=== PATIENT | male | born 1970 | race Caucasian/White ===

== ENCOUNTER 2016-11-30 19:49 | Inpatient (IN) | payer MEDICARE ==
[~2016-11-30] VITALS: Ht 171.4 cm; Wt 219.2 kg
--- NOTE | ~2016-11-30 | CN ---
PATIENT NAME:CELSA HARRIS MEDICAL RECORD: [id number] : 66 LOCATION:[id number] ADMIT DATE: 11/30/16 ACCOUNT: [id number] CONSULTING PHYSICIAN: JOLANTA MORALES MD REFERRING PHYSICIAN: SUBHASH SPARKS MD DATE OF CONSULTATION: 12/02/2016 CONSULT REQUESTING PHYSICIAN: Subhash Sparks MD REASON FOR CONSULTATION: Vent management, hypotension. HISTORY OF PRESENT ILLNESS: Mr. Harris is a 46-year-old gentleman, who has a history of end-stage renal disease. He is on hemodialysis. Yesterday after the hemodialysis, the patient had AV fistula rupture and the patient was transferred over here for further management. A rapid response was called in the evening and the patient was hypoxic, hypotensive. The patient was electively intubated and transferred to the ICU. Now, the history was taken mainly by reviewing the patient's note as well as talking to the nursing staff. PAST MEDICAL HISTORY: 1. End-stage renal disease, on hemodialysis. 2. History of CVA in 2011. 3. Obstructive sleep apnea. 4. Diabetes mellitus. 5. Hypertension. 6. Coronary artery disease. PAST SURGICAL HISTORY: 1. He had a cardiac catheterization multiple times. 2. He has AV fistula placement. ALLERGIES: HE IS ALLERGIC TO PENICILLIN, MORPHINE, CODEINE, ARAVA, AND LATEX. MEDICATIONS: On [employer] was reviewed. PERSONAL AND SOCIAL HISTORY: The patient is and lives with his . He is a nonsmoker, nondrinker. FAMILY HISTORY: Noncontributory. PHYSICAL EXAMINATION: GENERAL: Now, the patient is orally intubated and sedated. VITAL SIGNS: The blood pressure is 89/56, pulse is 116, respirations 20, temperature 100.6, SPO2 is 96%. The patient is on assist control mechanical ventilation. HEENT: Conjunctivae pink, sclerae nonicteric. NECK: Supple, no JVD. CHEST: There is no wheeze, no rales. HEART: Rhythm regular, normal sound, no murmur. ABDOMEN: Soft. Bowel sounds present. No hepatosplenomegaly. RECTAL: Deferred. EXTREMITIES: No cyanosis, no clubbing. There is 1+ pedal edema. SKIN: Warm, normal turgor. CENTRAL NERVOUS SYSTEM: The patient is orally intubated and sedated. There is no obvious cranial nerve abnormality. CONSULT REPORT [id number] CELSA HARRIS CHEST RADIOGRAPH: There is no infiltrate. The ET tube is a bit high. OTHER LABORATORY DATA: CBC: The WBC is 40,009, hemoglobin is 12, hematocrit 39.9 and the platelet count is 147. Chemistry: Sodium is 142, potassium 4.4, BUN is 54, creatinine of 11.1, glucose 103. The ABG post-intubation: The pH is 7.44, pCO2 is 37.5, the pO2 is 400. This was done on assist control 100% oxygen with a tidal volume of 600. IMPRESSION: 1. Acute hypoxic respiratory failure, hypotension, possible sepsis, possible hypovolemia secondary to blood loss. 2. Leukocytosis secondary to sepsis. 3. AV fistula rupture, status post bleeding. 4. History of obstructive sleep apnea. 5. History of coronary artery disease. 6. End-stage renal disease. 7. Diabetes mellitus type 2. 8. History of cerebrovascular accident. RECOMMENDATION: 1. I will discontinue prednisone, start him on stress dose of steroid. 2. Start him on vancomycin to cover for any MRSA in case of sepsis. 3. Check blood cultures. Check sputum culture. 4. Follow up labs and chest radiograph. 5. DVT and stress ulcer prevention. 6. The patient is going to the OR for the fistula repair and placement. Dr. Sparks, thank you for involving me in the care of Mr. Harris. TRANSINT:[id number] Voice Confirmation ID: [id number] DOCUMENT ID: [id number] JOLANTA MORALES MD CC: SUBHASH SPARKS MD [id number] DICTATION DATE: 12/02/16 1210 ASSOCIATE PROFESSOR OF LAW: 12/02/16 2017 ADM IN [facility] [address] [place] [address]
[~2016-11-30 19:49] MED LIST: BACTRIM DS TABL1 TAB PO; CETIRIZINE HCL5 MG PO; CIALIS10 MG PO; CLEOCIN HCL300 MG PO; COUMADIN2.5 MG PO; COUMADIN5 MG PO; FLORINEF 0.1 M0.1 MG PO; FLUTICASONE PRO16 GM NASAL; FOLIC ACID1 MG PO; GABAPENTIN100 MG PO; HYDROCODONE-APA1 TAB PO; IMODIUM2 MG PO; LEVAQUIN250 MG PO; LORCET; MIDODRINE HCL10 MG PO; MIDODRINE HCL5 MG PO; NASONEX NASAL S17 GM NS; NEPHRO-VITE RX1 TAB PO; NORCO 7.5/325 T1 TA1 PO; PATADAY2.5 ML EACH EYE; PAXIL20 MG PO; PHENERGAN25 M1 PO; PREDNISONE10 MG PO; PREDNISONE2.5 MG PO; PREDNISONE20 MG PO; PREDNISONE5 MG PO; PRILOSEC20 MG PO; RENVELA800 MG PO; REQUIP0.5 MG PO; RYTHMOL150 MG PO; SENSIPAR60 MG PO; SENSIPAR90 MG PO; SILVADENE20 GM TP; TUMS500 MG PO; TUSSIONEX PENN473 ML PO; ULTRACET; VENTOLIN HFA18 GM INH; XANAX0.25 MG PO; ZOCOR20 MG PO; ZOFRAN4 MG PO
[2016-11-30 20:49] LABS: BASOPHILS 0.3 % (0-2); EOSINOPHILS 1.2 % (0-7); HEMATOCRIT 44.9 % (42.0-54.0); HEMOGLOBIN 13.5 g/dL (13.5-17.5); IMMATURE GRANULOCYTES 0.4 % (0-5); LYMPHOCYTES 6.4 % (15-50); MCH 32.8 pg (26.0-34.0); MCHC 30.1 g/dL (31.0-37.0); MEAN PLATELET VOLUME 10.3 fL (7.4-10.4); MONOCYTES 7.1 % (2-11); NEUTROPHILS 84.6 % (40-80); PLATELET COUNT 114 10x3/uL (130-400); RBC 4.12 10x6/uL (4.20-6.10); RDW 14.9 % (11.5-14.5); WBC 11.3 10x3/uL (4.8-10.8)
[2016-11-30 21:05] LABS: INR 2.05 (0.85-1.17); PROTIME 23.2 SECONDS (11.6-15.0)
[2016-11-30 21:12] LABS: ALBUMIN 3.4 g/dL (3.4-5.0); ANION GAP 16.9 mmol/L (8-16); BILIRUBIN - TOTAL 0.39 mg/dL (0.2-1.3); CALCIUM 8.4 mg/dL (8.5-10.1); CARBON DIOXIDE 30.1 mmol/L (21.0-32.0); CREATININE - SERUM 7.8 mg/dL (0.6-1.3); PROTEIN - SERUM 6.8 g/dL (6.4-8.2)
[2016-12-01] VITALS (7 sets, daily range): BP systolic 79–104; BP diastolic 36–55; Ht 171.4 cm; Wt 219.2 kg
--- NOTE | 2016-12-01 00:10 | NUR ---
PT ARRIVED AT 2322 HRS VIA STRETCHER FORM ER WITH DX OF BLEEDING FISTULA. NO BLEEDING NOTED AT THIS TIME. RFA WRAPED WITH JORDANA BANDAGE. PALPABLE R RADIAL OPULSE. PT DENIES ANY DISCOMFORT. O2 2LNC. WILL CONTINUE TO MONITOR. SRUP X2, CALL LIGHT WITHIN REAQCH.
--- NOTE | 2016-12-01 00:27 | NUR ---
ADMISSIONA SASSESSMENT AND HISTORY COMPLETED. PT REFUSES SCD'S AT THIS TIME. WILL CONTINUE TO MONITOR.
[2016-12-01] MEDS ORDERED: BUPRENORPHIN-N1 EACH SL (01:30)
--- NOTE | 2016-12-01 01:32 | NUR ---
PT RESTING WITH EYES CLOSED. RESP EVENA ND REGULAR. NO BLEDING NOTED TO R AVF. WILL CONTIUE TO MONITOR. SR UP X2,CALL LIGHT WITHIN REACH.
--- NOTE | 2016-12-01 01:39 | NUR ---
PT HAS C/O THROBBING R ARM PAIN. RENAL SERVICES PAGED.
--- NOTE | 2016-12-01 02:14 | NUR ---
Alejo STALEY APN RETURNED PAGE. INFORMED OF PT'S C/O SEVERE R ARM PAIN. ALLERGIES REVIEWED. NEW ORDERS RECEIVED AND NOTED. BUPRENEX 0.2 MG SIVP GIVNE AT 0151 HRS. STAYED WITH PT UNTILL 0215. NO C/O SOB, TROUBLE BREATHNG, THROAT SWELLING, RASH OR ITCHING NOTED. PT THEN STATED PAIN DOWN TO 2/10. WILL CONTINUE TO MONITOR.
--- NOTE | 2016-12-01 03:29 | NUR ---
PT RESTING WITH EYES CLOSED. RESP EVEN AND REGULAR. SR UP X2, CALL LIGHT WITHIN REACH.
--- NOTE | 2016-12-01 06:08 | NUR ---
VSS. PT CURRENTLY RESTING WITH EYES WITH CLOSED. RESP EVEN AND REGULAR. SR UP X2, CALL LIGHT WITHIN REACH.
[2016-12-01 07:23] LABS: BASOPHILS 0.3 % (0-2); EOSINOPHILS 1.1 % (0-7); HEMATOCRIT 45.6 % (42.0-54.0); HEMOGLOBIN 13.5 g/dL (13.5-17.5); IMMATURE GRANULOCYTES 0.5 % (0-5); LYMPHOCYTES 11.4 % (15-50); MCH 32.8 pg (26.0-34.0); MCHC 29.6 g/dL (31.0-37.0); MCV 110.7 fL (80.0-100.0); MEAN PLATELET VOLUME 10.2 fL (7.4-10.4); MONOCYTES 11.4 % (2-11); NEUTROPHILS 75.3 % (40-80); PLATELET COUNT 117 10x3/uL (130-400); RBC 4.12 10x6/uL (4.20-6.10); WBC 13.3 10x3/uL (4.8-10.8)
--- NOTE | 2016-12-01 07:24 | NUR ---
0710-AM ROUNDING DONE WITH PATIENT APPEARING TO BE ALSEEP. RESP ARE EVEN AND NON LABORED. ON 2L PER NC. JORDANA WRAP SEEN TO RIGHT UPPER ARM. LEFT HAND SEEN WITH SALINE LOCK. RESERVE RIGHT ARM. WILL CPOC.
[2016-12-01 07:35] LABS: CALCIUM 8.5 mg/dL (8.5-10.1); CARBON DIOXIDE 31.9 mmol/L (21.0-32.0); CREATININE - SERUM 8.8 mg/dL (0.6-1.3); POTASSIUM - SERUM 4.9 mmol/L (3.5-5.1)
[2016-12-01 09:15] LABS: INR 1.73 (0.85-1.17); PROTIME 20.2 SECONDS (11.6-15.0)
--- NOTE | 2016-12-01 09:27 | NUR ---
PATIENT MADE NPO PER ORDERS.
--- NOTE | 2016-12-01 09:45 | NUR ---
EKG DONE ORDERED.
--- NOTE | 2016-12-01 12:36 | NUR ---
ZOFRAN GIVEN SLOW IVP FOR PATIENT'S COMPLAINT OF NAUSEA.
--- NOTE | 2016-12-01 14:09 | NUR ---
PATIENT IS STILL NPO, AWAITING DR BOX TO SEE HIM (HE IS STILL IN SURGERY). RESTING WITH EYES CLOSED, RESP ARE EVEN AND NON LABORED.
--- NOTE | 2016-12-01 16:34 | NUR ---
DR CRAWLEY BEEPED TO NOTIFY HIM OF PATIENT GOING TO OR TOMORROW PER DR BOX'S ORDERS. AWAITING CALL BACK. 1634-DR CRAWLEY TO CALL BACK
--- NOTE | 2016-12-01 17:10 | NUR ---
OP PERMITS ARE SIGNED FOR TOMORROW, PATIENT IS MADE AWARE OF NPO PAST MIDNIGHT.
--- NOTE | 2016-12-01 23:12 | NUR ---
INITIAL ROUNDS COMPETED AT 1920 HRS. FAMILY AT BEDSIDE. PT DOZING QUIETLY. RESP EVEN AND REGULAR. ASSESSMETN COMPLETED AT 2015 HRS. VSS. O2 2LNC. LUNGS DIMINISHED IN BASES BILAT. VELASCO. IMPAIRED ROM DUE TO ARTHRITIS. IV TO LFA SL. RAVF WRAPPED. NO BLEEDING NOTED. PALPABLE R RADIAL PULSE. PM MEDS GIVEN INCLUDING BUPRENEX 0.2MG SIVP FOR C/O R ARM PAIN 12/13 AT 2127 HRS. PT CURRENTLY RESTING WITH EYES CLOSED. RESP EVEN AND REGULAR. SR UP X2, CALL LIGHT WITHIN REACH. NO BLEEDING TO FISTULA SITE NOTED. BP CUFF AT BEDSIDE.
[2016-12-02] VITALS (77 sets, daily range): BP systolic 61–132; BP diastolic 33–543
[2016-12-02 00:54] LABS: HEMATOCRIT 44.3 % (42.0-54.0); HEMOGLOBIN 12.7 g/dL (13.5-17.5); MCH 32.5 pg (26.0-34.0); MCHC 28.7 g/dL (31.0-37.0); MCV 113.3 fL (80.0-100.0); MEAN PLATELET VOLUME 10.5 fL (7.4-10.4); PLATELET COUNT 160 10x3/uL (130-400); RBC 3.91 10x6/uL (4.20-6.10); RDW 15.2 % (11.5-14.5); WBC 20.4 10x3/uL (4.8-10.8)
--- NOTE | 2016-12-02 01:04 | NUR ---
PT FOUND AT 0003 HRS DURING 2400 ROUNDS PURPLE, APNEIC BREATHING, CHIN ON CHEST AND WHITE, FROTHY SPUTUM CASCADING DOWN CHEST. AIRWAY OPENED AND AIRWAY CLAERED WITH TOWEL. RAPID RESPONSE CALLED AND PT THEN SUCTIONED WITH YANKUERS WITH A LARGE AMOUNT OF WHITE, FROTHY SPUTUM NOTED. PT UNRESPONSIVE WITH STERNAL CHEST RUB. RESP LABORED. Elmira FATIMA RN HERE FOR RAPID RESPONSE. NARCAN 0.4MG SIVP GIVEN TO LFA IV AT 0011 HRS. PT CONTINUES TO BE UNRESPONSIVE. O2 SAT 82%. ATTEMPTED X2 FOR ABG'S WITHOUT SUCCESS. NASAL TRUMPET PLACED TO R NARES AT 0022 HRS ANAD PT THEN DEEP SUCTIONED WITH MORE WHITE, FROTHY SPUTUM NOTED. ST PER MONITOR HR 101. BP AT 0030 71/34. SECOND DOSE OF NARCAN 0.4MG SIVP GIVNE AT 0033 HRS. PT BECOMING MORE AND MORE APNEIC. DR SUREKHA JOHNSON MD HERE AT THAT TIME. O2 SAT 82% BP 84/41 AT 0036 HRS. PT INTUBATED AT 0037 HRS WITH 7.5 ET TUBE AT 23 CM. ET TUBE CHECKED FOR PLACEMENT WITH BERATH SOUNDS HEARD BILAT. O2 SAT TO 98% VS/P INTUBATION . ST PER CM HR 112. KALEB HARRIS CALLED AT 0045 HRS AND INFORMED OF PT'S CONDITION. STATED SHE WAS ON HER WAY. RENAL SERVICES POAGED AT 0045 HRS. Alejo STALEY RETURNS CALL AT 0052 HRS AND UPDATE GIVEN BY Nu BROWN RN. BP 52/30 AND 1 LITER FLUID UP PER Elmira BROWN RN. DR. CRAWLEY CALLED AT 0055 HRS AND SPOKE WITH Elmira BROWN RN. PT PLACED ON VENT AT 0050 HRS. CARE TURNED OVER TO Elmira BROWN RN.
[2016-12-02 01:14] LABS: EOSINOPHILS 1 % (0-7); LYMPHOCYTES 18 % (15-50); MONOCYTES 5 % (2-11); NEUTROPHILS 76 % (40-80)
[2016-12-02 01:15] LABS: PLATELET ESTIMATE NORMAL
[2016-12-02 01:30] LABS: ALBUMIN 3.2 g/dL (3.4-5.0); ALKALINE PHOSPHATASE 141 U/L (46-116); ALT (SGPT) 28 U/L (10-68); BILIRUBIN - TOTAL 0.42 mg/dL (0.2-1.3); CALC OSMOLALITY 300 mosm/kg (275-300); CALCIUM 8.7 mg/dL (8.5-10.1); CARBON DIOXIDE 25.6 mmol/L (21.0-32.0); CHLORIDE - SERUM 101 mmol/L (98-107); CREATININE - SERUM 11.2 mg/dL (0.6-1.3); GLUCOSE 163 mg/dL (74-106); POTASSIUM - SERUM 4.9 mmol/L (3.5-5.1); PROTEIN - SERUM 6.7 g/dL (6.4-8.2); SODIUM 142 mmol/L (136-145); UREA NITROGEN 51 mg/dL (7-18); eGFR NON AFRICAN AMERICAN 5 mL/min (90-120)
[2016-12-02 01:41] LABS: CKMB 0.7 U/L (0.0-3.6); CREATINE KINASE 53 UL (21-232); MAGNESIUM - SERUM 2.6 mg/dL (1.8-2.4)
[2016-12-02 01:42] LABS: TROPONIN-I < 0.017 ng/mL (0.000-0.060)
--- NOTE | 2016-12-02 02:15 | NUR ---
0215: Pt transferred to ICU via STR and placed in room 2303 with HOB 30 degrees. Pt opens eyes to verbal and follows commands at this time. Pupils 2mm sluggish bilaterally. Pt moves x4 extrem vs gravity. Pt breathing via 7.5fr ETT at 23cm lip line with Vent as AC 600/20/100/5 with pt RR20x with SPO2 97%. Lungs with crackles heard throughout with auscultation. Pt has motteled extrem that are "blue" in color. S1S2 ST 100's on CM with SBP 60's. Left Arm PIV leaking but not infiltrated. Unable to obtain any other access with multiple attempts. ABD soft tender. ESRD noted. Right arm dressing intact with no bleeding seen at this time.
--- NOTE | 2016-12-02 03:00 | NUR ---
0300: Dr. Payan at bedside inserting CVL. here and updated about pt condition and procedure. Pt remains ST with SBP 60-70 (MAP 55-60) Levophed gtt infusing with NS to Left arm PIV.
--- NOTE | 2016-12-02 03:05 | NUR ---
0305: Successful placement of CVL to right groin. All gtts changed to CVL with new lines, swab caps, and sterile dressing to site.
--- NOTE | 2016-12-02 03:15 | NUR ---
0315: Pt vomitting approx 900cc of light green liquid vomit. Immediate oral suction.
--- NOTE | 2016-12-02 04:30 | NUR ---
0430: OGT placed by Christopher Pandey RN and position confirmed with 30cc air bolus and auscultation. OGT placed to LIWS. Small amount thick green/brown return.
[2016-12-02 04:33] LABS: BASOPHILS 0.3 % (0-2); EOSINOPHILS 0.8 % (0-7); HEMATOCRIT 40.4 % (42.0-54.0); IMMATURE GRANULOCYTES 1.1 % (0-5); LYMPHOCYTES 9.4 % (15-50); MCH 32.9 pg (26.0-34.0); MCHC 29.7 g/dL (31.0-37.0); MEAN PLATELET VOLUME 10.4 fL (7.4-10.4); MONOCYTES 9.2 % (2-11); NEUTROPHILS 79.2 % (40-80); PLATELET COUNT 151 10x3/uL (130-400); RBC 3.65 10x6/uL (4.20-6.10)
[2016-12-02 04:36] LABS: MCV 110.7 fL (80.0-100.0)
[2016-12-02 04:39] LABS: INR 1.51 (0.85-1.17); PROTIME 18.1 SECONDS (11.6-15.0)
[2016-12-02 06:17] LABS: BASOPHILS 0.3 % (0-2); EOSINOPHILS 0.9 % (0-7); HEMATOCRIT 39.9 % (42.0-54.0); IMMATURE GRANULOCYTES 1.1 % (0-5); LYMPHOCYTES 12.2 % (15-50); MCH 32.6 pg (26.0-34.0); MCHC 30.1 g/dL (31.0-37.0); MEAN PLATELET VOLUME 9.8 fL (7.4-10.4); NEUTROPHILS 78.5 % (40-80); PLATELET COUNT 147 10x3/uL (130-400); RBC 3.68 10x6/uL (4.20-6.10); RDW 15.1 % (11.5-14.5); WBC 14.9 10x3/uL (4.8-10.8)
[2016-12-02 06:28] LABS: MCV 108.4 fL (80.0-100.0)
--- NOTE | 2016-12-02 06:55 | NUR ---
0655: Pt complete linen change done at this time x3 RNs. Pt repositioned for comfort at this time with HOB 30 degrees.
[2016-12-02 07:09] LABS: ALBUMIN 2.8 g/dL (3.4-5.0); ANION GAP 20.3 mmol/L (8-16); BILIRUBIN - TOTAL 0.67 mg/dL (0.2-1.3); CALCIUM 8.8 mg/dL (8.5-10.1); CARBON DIOXIDE 26.1 mmol/L (21.0-32.0); CREATININE - SERUM 11.1 mg/dL (0.6-1.3); POTASSIUM - SERUM 4.4 mmol/L (3.5-5.1); PROTEIN - SERUM 6.3 g/dL (6.4-8.2)
[2016-12-02 07:10] LABS: MAGNESIUM - SERUM 1.9 mg/dL (1.8-2.4)
--- NOTE | 2016-12-02 07:41 | NUR ---
PATIENT AWAKES EASILY AND OBEY COMMANDS. NODES HEAD TO YES AND NO QUESTIONS AND MOVES EXTREMITIES ON REQUEST. FEET AND HANDS ARE BLUE WITH MUSCLE ATROPY IN THE FEET. HANDS SLIGHTLY SWOLLEN. FISTULA RIGHT UPPER ARM NO BRUIT OR THRILL NOTED. LEFT FEMEROL TRIPLE LUMEN CENTRAL LINE IN PLACE INFUSING WITH LEVOPHED AT 30 MCG/MIN. DIPRIVAN 20MCG/KG/MIN. AND NS AT 100ML HOUR. BILATERAL LUNG SOUNDS ARE EQUAL AND CONGESTED. SUCTION YELLOW OUT OF ETT, AND CLEAR FROM MOUTH. HANDS AND FEET ARE COLD TO TOUCH BODY IS WARM. MONITOR ST WITH FREQ PVC. VOMITTED CLEAR MUCOUSY FLUID. OG TO LOW INTERMITTEN SUCTION. ETT SECURE TO VENT. SIDE RAILS ELEVATED X 3.
--- NOTE | 2016-12-02 09:23 | NUR ---
STILL VOMITTING SMALL AMOUNTS. NG CHECKED FOR PLACEMENT AIR BOLUS AUDIBLE IN ABD. THICK YELLOW DRAINAGE FROM NG TUBE. PO MEDS HELD AT THIS TIME. REPOSITIONED ON RIGHT SIDE. LEVOPHED AT 30 MCG/MIN. NS AT 100 ML HOUR. DIPRIVAN AT 20 MCG/KG/MIN.
--- NOTE | 2016-12-02 10:09 | NUR ---
EDG COMPLETED PATIENT AWAKES EASILY TOLERATED WELL. AT BEDSIDE
--- NOTE | 2016-12-02 11:17 | NUR ---
TO OR PER BED. NOTIFIED PER PHONE . DR. MORALES HERE EXAM DONE.
--- NOTE | 2016-12-02 13:36 | NUR ---
RETURNED FROM OR, INTUBATED BILATERAL LUNGS EQUAL AND VERY CONGESTED. MONITOR ST. A LINE LEFT AXILLA WITH GOOD WAVE FORM, FLUSHED AND ZEROED. LEFT IJ TRIPLE LUMEN INFUSING WITH NS AT 100 ML HOUR. LEVOPHED AT 29 MCG/MIN. DIPRIVAN AT 20 MCG/KG/MIN. ETT SECURE AT 21 AT THE LIP. OG TO SUCTION WITH THICK BROWN FOOD LIKE MATERIAL. FISTULA RIGHT UPPER ARM DRESSING DRY AND INTACT. LEFT FEMEROL HEMISPLIT CATHETER DRESSING DRY AND INTACT NO SWELLING. SCD TO LOWER LEGS NO THRILL OR BRUIT IN LEFT UPPER ARM. HEAD OF BED ELEVATED 30 DEGREE.
--- NOTE | 2016-12-02 15:07 | NUR ---
TALKED WITH PATIENT ABOUT PENCILLIN REACTION SHE SAYS IT HAS BEEN YEARS AGO AND ALL HER HURTADO TOLD HER WAS HE HAD A REACTION TO IT. CALLED PHARMACY AND TALKED WITH Donnie THAT DR. CRAWLEY STATES TO GO HEAD AND GIVE MANUELN
--- NOTE | 2016-12-02 17:59 | NUR ---
VASOPRESSIN OFF, WEANING LEVOPHED AT 28 MCG/MIN. REPOSITIONED. OPENS EYES BUT CLOSES THEM QUICKLY. LUNGS SOUNDS CLEARER BUT STILL SOME CONGESTION. DIPRIVAN AT 20 MCG/KG/MIN. NS AT [address] WITH PVC'S. TRAE WITH GOOD WAVE FORM
--- NOTE | 2016-12-02 18:32 | NUR ---
VASOPRESIN TURNED ON AT 0.04 UNITS/MIN. WEANING LEVOPHED AT 25 MCG MIN
--- NOTE | 2016-12-02 19:00 | NUR ---
REPORT RECEIVED. ASSESSMENT COMPLETE PER FLOW SHEET. SEDATED ON VENT, OPENS EYES TO SPEECH AND IS ABLE TO FOLLOW COMMANDS WHEN ASKED TO SQUEEZE MY HAND AND MOVE HIS FEET. PUPILS ARE 2 CM, SLUGGISH REACTION. REDNESS NOTED IN R&L EYE. MUCOUS MEMBRANES MOIST. ORAL MUCOSA SUCTIONED, YELLOW SPUTUM NOTED. OGT TO LIS, PLACEMENT VERIFIED VIA AUSCULTATION. S1S2 PRESENT. TELEMETRY MONITORING RATE OF 95.RR 20.TEMP 99.8, TYMPANIC. O2 SATURATION 97%. RADIAL PULSES AUDIBLE WITH DOPPLER. POPLITEAL PULSES AUDIBLE WITH DOPPLER. BS PRESENT X4. ABDOMEN LARGE AND TIGHT. ANURIC VOIDING PATTERN. FISTULA ON R UPPER ARM, BANDAGE WRAPPED, CLEAN AND INTACT, UNABLE TO HEAR A BRUIT OR FEEL FOR A THRILL. STIFFNESS NOTED TO RUBIN. CYANOSIS NOTED ON BOTH HANDS AND FEET AND ARE COLD TO THE TOUCH, REST OF BODY IS WARM AND DRY. BRUISES NOTED ON L ARM. SCRAPES ON BOTH LEGS NOTED. LT JUGULAR CVL, PATENT, DRESSING CLEAN AND INTACT, INFUSING VASOPRESSIN AT 0.04 UNITS/MIN, NOREPINEPHRINE AT 15 MCG/MIN, NS AT 50 MLS/HR, AND DIPRIVAN AT 20 MCG/KG/MIN. LT GROIN HEMOSPLIT, DRESSING CLEAN AND INTACT. L&R SOFT WRIST RESTRAINTS. ARTERIAL LINE TO LEFT AXILLA, DRESSING CLEAN AND INTAC, ZEROED, GOOD WAVEFORM, BP 118/71. CAPILLARY REFILL <3 SECS UPPER AND LOWER EXTREMITIES. BED IN LOWEST POSITION. SEE FLOW SHEET FOR COMPLETE ASSESSMENT. WILL CONTINUE TO MONITOR. BED IN LOWEST POSITION.
--- NOTE | 2016-12-02 20:33 | NUR ---
MEDS ADMINISTERED PER EMAR. VSS. WILL CONTINUE TO MONITOR.
--- NOTE | 2016-12-02 21:15 | NUR ---
VSS. TITRATING LEVOPHED TO 14 MCG/KG/MIN. WILL CONTINUE TO MONITOR. BED IN LOWEST POSITION.
--- NOTE | 2016-12-02 22:47 | NUR ---
VSS. TITRATING LEVOPHED TO 13 MCG/KG/MIN. BED IN LOWEST POSITION. WILL CONTINUE TO MONITOR.
--- NOTE | 2016-12-02 23:00 | NUR ---
REASSESSMENT COMPLETE PER FLOW SHEET, SEE FOR DETAILS. VSS. WILL CONTINUE TO MONITOR.
--- NOTE | 2016-12-02 23:46 | NUR ---
VSS. TITRATING LEVOPHED TO 12 MCG/KG/MIN. WILL CONTINUE TO MONITOR.
[2016-12-03] VITALS (95 sets, daily range): BP systolic 78–159; BP diastolic 49–100
--- NOTE | 2016-12-03 00:48 | NUR ---
VSS. TITRATING LEVOPHED TO 11 MCG/KG/MIN. WILL CONTINUE TO MONITOR.
--- NOTE | 2016-12-03 01:42 | NUR ---
VSS. TITRATING LEVOPHED TO 10 MCG/KG/MIN. WILL CONTINUE TO MONITOR.
--- NOTE | 2016-12-03 02:00 | NUR ---
SEDATED ON VENT, OPENS EYES TO SPEECH. VSS. WILL CONTINUE TO MONITOR.
--- NOTE | 2016-12-03 03:00 | NUR ---
REASSESSMENT COMPLETE PER FLOW SHEET, SEE FOR DETAILS. VSS. WILL CONTINUE TO MONITOR.
[2016-12-03 04:44] LABS: BASOPHILS 0.1 % (0-2); EOSINOPHILS 0 % (0-7); HEMATOCRIT 34.1 % (42.0-54.0); HEMOGLOBIN 10.7 g/dL (13.5-17.5); IMMATURE GRANULOCYTES 0.6 % (0-5); LYMPHOCYTES 2.1 % (15-50); MCH 32.8 pg (26.0-34.0); MCHC 31.4 g/dL (31.0-37.0); MEAN PLATELET VOLUME 10.4 fL (7.4-10.4); MONOCYTES 2.8 % (2-11); NEUTROPHILS 94.4 % (40-80); RBC 3.26 10x6/uL (4.20-6.10); RDW 14.7 % (11.5-14.5); WBC 14.1 10x3/uL (4.8-10.8)
[2016-12-03 04:45] LABS: MCV 104.6 fL (80.0-100.0); PLATELET COUNT 101 10x3/uL (130-400)
--- NOTE | 2016-12-03 05:00 | NUR ---
TOTAL BED BATH GIVEN AND COMPLETE BED LINENS CHANGED. VSS. ORAL AND INLINE SUCTIONED, CLEAR WHITE THICK SECRETIONS. WILL CONTINUE TO MONITOR.
[2016-12-03 05:03] LABS: ANION GAP 22.4 mmol/L (8-16); CALCIUM 9.6 mg/dL (8.5-10.1); CARBON DIOXIDE 23.1 mmol/L (21.0-32.0); CREATININE - SERUM 12.5 mg/dL (0.6-1.3); POTASSIUM - SERUM 5.5 mmol/L (3.5-5.1)
--- NOTE | 2016-12-03 06:00 | NUR ---
LAYING IN BED, VSS. NO VISITORS AT THIS TIME. WILL CONTINUE TO MONITOR.
--- NOTE | 2016-12-03 07:00 | NUR ---
PT AROUSES TO VOICE AND FOLLOWS COMMANDS. APPEARS TO BE AT ADEQUATE LEVEL OF SEDATION. NORMAL SINUS ON MONITOR. O2 SAT STABLE ON VENT, ORAL CARE PERFORMED. TITRATING VASOPRESSORS TOLERATED. ART LINE FLUSHED AND ZEROED, BP STABLE AND WILL CONTINUE TO MONITOR. ORDERS FOR DIALYSIS TODAY. SHIFT ASSESSMENT DOCUMENTED PER FLOWSHEET. WILL CONTINUE TO MONITOR CLOSELY. VITAL SIGNS STABLE
--- NOTE | 2016-12-03 09:00 | NUR ---
FAMILY AT BEDSIDE AND UPDATE GIVEN. PT ATTEMPTING TO COMMUNICATE WITH USING HAND GESTURES. APPEARS TO BE MORE AGITATED WITH INCREASING BP. INCREASED SEDATION NEEDED. ORAL CARE AND SUCTION PERFORMED. ATTEMPTING TO CALM PT. WILL CONTINUE TO MONITOR CLOSELY
--- NOTE | 2016-12-03 09:59 | NUR ---
Nutrition follow-up: Pt is now intubated, sedated with OGT to LIWS Labs reviewed NPO at this time Wt: 256# Will need nutrition support started within 24-48 hours if pt remains intubated. Recommend starting Nepro @ 25 ml with gradual increase to goal rate of 50 ml/hr. RDN following.
--- NOTE | 2016-12-03 10:30 | NUR ---
INITIATING DIALYSIS PER ORDERS WITH [facility] AT BEDSIDE. WILL MONITOR FOR CHANGES IN STATUS DURING THERAPY. VITAL SIGNS STABLE AT THIS TIME
--- NOTE | 2016-12-03 11:15 | NUR ---
PT NOW ON TEMPORARY ISOLATION FOR HEMOLYTIC STAPH. WILL FOLLOW CONTACT PRECAUTIONS WHEN CARING FOR PT. BP SLIGHTLY DROPPING WITH DIALYSIS. TITRATING VASOPRESSORS NEEDED
--- NOTE | 2016-12-03 13:00 | NUR ---
NO ACUTE CHANGES IN PT STATUS AT THIS TIME. TOLERATING DIALYSIS AT THIS TIME. WILL CONTINUE TO MONITOR FOR ANY CHANGE IN STATUS. VITAL SIGNS STABLE
--- NOTE | 2016-12-03 14:18 | NUR ---
Attempted to assess dc plans/needs. Patient sedated, on vent - No family present.
--- NOTE | 2016-12-03 14:30 | NUR ---
NEPRO INITIATED AT 20ML/HR PER ORDER TO OGT. HOB 30 DEGREES. PT REPOSTITIONED IN BED AND TURNED FOR COMFORT. NO FURTHER CHANGES AT THIS TIME.
--- NOTE | 2016-12-03 16:30 | NUR ---
NO ACUTE CHANGES IN PT STATUS AT THIS TIME. VITAL SIGNS STABLE. TITRATING VASOPRESSORS TOLERATED. WILL CONTINUE TO MONITOR
--- NOTE | 2016-12-03 17:10 | NUR ---
CALLED AND PROVIDED SECURITY PASSCODE. UPDATE GIVEN ON CURRENT STATUS. STATES SHE WILL BE HERE AT NEXT VISITATION. NO FURTHER CHANGES IN PT STATUS. REPOSITIONED FOR COMFORT AND ORAL CARE PERFORMED. WILL CONTINUE TO MONITOR
--- NOTE | 2016-12-03 19:00 | NUR ---
REPORT RECEIVED. ASSESSMENT COMPLETE PER FLOW SHEET. SEDATED ON VENT WITH DIPRIVAN AT 30 MCG/KG/MIN. FOLLOWS COMMAND WHEN ASKED TO SQUEEZE MY HAND AND MOVE HIS FEET AND OPENS EYES TO SPEECH. ORALLY INTUBATED WITH 7.5 CM ETT AT 22 CM MID LIP LINE. REDNESS NOTED IN R&L EYE. OGT PLACEMENT VERIFIED VIA AUSCULATATION, 70 MLS OF WATERY GREEN LIQUID OBTAINED, WILL CONTINUE WITH NEPRO TUBE FEEDINGS AT 20 MLS/HR. S1S2 PRESENT. RADIAL PULSES PALP. POPLITEAL PULSES PALP. TELEMETRY MONITORING RATE OF 64. ORAL MUCOUS MEMBRANES MOIST, SUCTIONED RALPH/WHITE SPUTUM. BS HYPOACTIVE X4. ABDOMEN TIGHT. OLD FISTULA RT UPPER ARM, DRESSING INTACT, NO DRAINAGE NOTED. SKIN WARM AND DRY, CYANOSIS NOTED TO BOTH FEET. BRUISES NOTED ON LT ARM. SCRAPES BILAT LEG. SCDs ON. LT JUGULAR CVL, PATENT, DRESSING INTACT. LT GROIN HEMOSPLIT, DRESSING CDI. CONTACT ISOLATION. L&R SOFT WRIST RESTRAINTS. LT AXILLA ARTERIAL LINE MONITORING BP 101/63. SEE FLOW SHEET FOR COMPLETE ASSESSMENT. BED IN LOWEST POSITION. WILL CONTINUE TO MONITOR.
--- NOTE | 2016-12-03 20:10 | NUR ---
SEDATED ON VENT. VSS. WILL CONTINUE TO MONITOR.
--- NOTE | 2016-12-03 21:19 | NUR ---
MEDS ADMINISTERED PER EMAR. VSS. WILL CONTINUE TO MONITOR. BED IN LOWEST POSITION.
--- NOTE | 2016-12-03 23:00 | NUR ---
REASSESSMENT COMPLETE PER FLOW SHEET, SEE FOR DETAILS. VSS. WILL CONTINUE TO MONITOR.
--- NOTE | 2016-12-03 23:40 | NUR ---
AGITATED, UNABLE TO STAY CALM, CONSISTANTLY COUGHING, ORAL AND INLINE SUCTIONED. DIPRIVAN INCREASED.
[2016-12-04] VITALS (63 sets, daily range): BP systolic 79–142; BP diastolic 44–82
--- NOTE | 2016-12-04 | NUR ---
RESIDUAL OF 315 MLS OF GREEN, RALPH, WHITE, STOMACH CONTENT OBTAINED. TUBE FEEDINGS PUT ON HOLD PER DOCTOR'S ORDERS. VSS. WILL CONTINUE TO MONITOR.
--- NOTE | 2016-12-04 03:00 | NUR ---
REASSESSMENT COMPLETE PER FLOW SHEET, SEE FOR DETAILS. VSS. WILL CONTINUE TO MONITOR.
[2016-12-04 03:57] LABS: BASOPHILS 0 % (0-2); EOSINOPHILS 0.1 % (0-7); HEMATOCRIT 28.3 % (42.0-54.0); HEMOGLOBIN 8.9 g/dL (13.5-17.5); IMMATURE GRANULOCYTES 0.5 % (0-5); MCH 32.8 pg (26.0-34.0); MCHC 31.4 g/dL (31.0-37.0); MCV 104.4 fL (80.0-100.0); MEAN PLATELET VOLUME 10.4 fL (7.4-10.4); MONOCYTES 6.6 % (2-11); NEUTROPHILS 90.8 % (40-80); PLATELET COUNT 84 10x3/uL (130-400); RBC 2.71 10x6/uL (4.20-6.10); RDW 14.7 % (11.5-14.5)
[2016-12-04 03:59] LABS: WBC 10.4 10x3/uL (4.8-10.8)
[2016-12-04 04:17] LABS: ANION GAP 19.4 mmol/L (8-16); CALCIUM 9.8 mg/dL (8.5-10.1); CARBON DIOXIDE 25.4 mmol/L (21.0-32.0); CREATININE - SERUM 9.5 mg/dL (0.6-1.3); MAGNESIUM - SERUM 2.3 mg/dL (1.8-2.4); PHOSPHOROUS 8.7 mg/dL (2.5-4.9); POTASSIUM - SERUM 4.8 mmol/L (3.5-5.1); VANCOMYCIN - RANDOM 31.4 ug/mL (10.0-20.0)
--- NOTE | 2016-12-04 05:00 | NUR ---
SEDATED ON VENT. VSS. WILL CONTINUE TO MONITOR. BED IN LOWEST POSITION.
--- NOTE | 2016-12-04 06:00 | NUR ---
NO VISITORS AT THIS TIME. VSS. WILL CONTINUE TO MONITOR.
--- NOTE | 2016-12-04 07:00 | NUR ---
REPORT RECIEVED FROM OFF GOING NURSE. PT LYING IN BED. DIPROVAN AT 30MCG/KG/MIN AND VASSOPRESIN AT 0.04 UNITS/MIN RUNNING TO LEFT JUGULAR CENTRAL LINE. OTHER LINES S/L AND KVO. TELEMETRY SHOWING 60TO 70BPM SINUS RYTHEM. PRESSURE DRESSING TO RIGHT ARM C/D/I. HEMOSPLIT TO L GROIN C/D/I. A LINE TO LEFT AXIALLARY HAS GOOD WAVE FORM AT 98/63. FAMILY NOT AT BED SIDE. COPIOUS AMOUNT OF CLEAR THICK SPEUTUM FROM PT'S MOUTH. SUCTIONED ORALY AND ET TUBE. PT DROWESY FROM SEDATION, HOWEVER ABLE TO SHAKE HEAD UP YES AND NO AND FOLLOW SIMPLE COMMANDS. OG TUBE HAD 100ML OF GREEN RESIDUAL NOTED. SEE FLOW SHEET FOR THE REST OF THE ASSESSMENT. BRIANA PAIN WHENEVER ASKED BY SHAKING HEAD NO. CALL LIGHT IN REACH. WILL CONT POC.
--- NOTE | 2016-12-04 08:30 | NUR ---
VASSOPRESSION TUNRED DOWN TO 0.01 BP STABLE. PT SHOOK HEAD UP AND DOWN WHENEVER ASKED IF HIS SBP WAS NORMALLY BETWEEN 80 AND 90. BP 96/56.
--- NOTE | 2016-12-04 09:00 | NUR ---
VASSOPRESSEN TURNED OFF. SBP STABLE BETWEEN 80 TO 90.
--- NOTE | 2016-12-04 09:30 | NUR ---
VISITING WITH PT. PT BECAME AGGITATED AND EXREAMLY RESTLESS. DIPROVAN INCREASED TO 55MCG/KG/MIN. BP 92/55 (69). PT CALMED DOWN
--- NOTE | 2016-12-04 09:57 | NUR ---
DIPROVAN DECREASED TO 40MCG/KG/MIN. BP 84/48 (60). STILL AT BED SIDE. VASSOPRESSIN TURNED ON TO 0.01 UNITS/MIN
--- NOTE | 2016-12-04 10:07 | NUR ---
VASSOPRESSIN TURNED ON TO 0.04 UNITS/MIN PER MD. SBP BETWEEN 110-130
--- NOTE | 2016-12-04 11:07 | NUR ---
ARTVAN DECREASED PER ORDERS TO WHEEN PT OFF VENTILATOR PER MD.
--- NOTE | 2016-12-04 12:22 | OP ---
PATIENT NAME: CELSA HARRIS MEDICAL RECORD: [id number] :66 LOCATION:[facility] [id number] ADMISSION DATE:11/30/16 SURGEON: VALERIE BOX MD DATE OF OPERATION: 12/02/2016 PREOPERATIVE DIAGNOSES: End-stage renal disease with dependence on hemodialysis and septic shock, dialysis access complication of left arm AV fistula, central vein stenoses and hypoventilation with hypercapnia syndrome associated with obesity and acute respiratory failure requiring intubation and mechanical ventilation, and recent hemorrhage from ulcerated left upper extremity AV fistula. POSTOPERATIVE DIAGNOSES: End-stage renal disease with dependence on hemodialysis and septic shock, dialysis access complication of left arm AV fistula, central vein stenoses and hypoventilation with hypercapnia syndrome associated with obesity and acute respiratory failure requiring intubation and mechanical ventilation, and recent hemorrhage from ulcerated left upper extremity AV fistula. OPERATION PERFORMED: Ligation of left upper extremity brachiocephalic AV fistula and evacuation of infected clot from area of ulceration and recent hemorrhage and then also insertion of a left femoral tunneled central venous line under fluoroscopy. SURGEON: Valerie Box MD. ANESTHESIA: General endotracheal per Dr. Patterson and PSYCHOPAEDIC NURSE, with Dr. Patterson also placing a left axillary arterial line and a left internal jugular vein triple-lumen central venous catheter. PREOPERATIVE NOTE: Mr. Harris is a 46-year-old white male diabetic with end-stage renal disease and central vein stenoses with stents and a left brachiocephalic AV fistula, which has demonstrated aneurysmal change and recently ulcerated and the patient had a very severe hemorrhage and was admitted to the hospital here in transfer from [place] on November 30. I saw him yesterday on December 01. At that time, he was not bleeding and seemed stable and planned for him to have a fistulogram and additional procedures later. The patient last night became severely hypotensive and had an episode of hypoxia and hypercapnia secondary to his chronic hypoventilation syndrome associated with obesity and today, on a ventilator in the ICU, he remains hypotensive despite a Levophed drip. Considering that he is likely septic from possible abscess or infected hematoma in the left arm and due to the potential for recurrent massive hemorrhage, should his blood pressure be restored to normal levels and the fistula remain patent, he is to be taken to the operating room now with plans to simply ligate the fistula and evacuate the hematoma and place a tunneled central line for dialysis access. In the OR, general endotracheal anesthesia administered by Dr. Patterson and PSYCHOPAEDIC NURSE. Dr. Patterson inserted a left axillary arterial line for monitoring and a left internal jugular vein central line. Subsequent C-arm fluoroscopy demonstrated a central line to pass down apparently into the superior vena cava; therefore, indicating to me at least the patency of the left internal jugular and brachiocephalic veins for potential use for left upper extremity access in the future. OPERATIVE REPORT [id number] ECLSA HARRIS The patient was prepped and draped in a sterile manner. I made a transverse incision over the left arm over the cephalic vein fistula just above the antecubital space. I exposed the cephalic vein and ligated it doubly with 0 silk. Hemostasis was obtained with a few Vicryl ties and electrocautery and the wound was subsequently closed with lety. I made a second incision above the area of ulceration just distal to the shoulder. I exposed the vein and doubly ligated it there also with heavy silk. That wound was closed with lety. Both incisions were then dressed with sterile gauze and Tegaderm with Cavilon skin prep. I then explored the area of ulceration and evacuated a large amount of thrombus from the area. I did not find any purulent material or gross evidence of abscess for instance. There was no significant bleeding. The wound was irrigated and then packed with antibiotic solution soaked gauze with plans for further wet-to-dry dressings postop. The patient's left groin was exposed and the existing triple lumen catheter removed over a guidewire and under fluoroscopy, I inserted a new HemoSplit tunneled central dialysis catheter through a separate stab incision and subcutaneous tunnel, positioned its tip appropriately in the inferior vena cava. Both lumens were accessed and aspirated. Both returned blood easily. They were then flushed with saline and then hep-lock solution, clamped and capped. The groin incision was closed with interrupted inverted 3-0 Vicryl and Dermabond glue and dressed with Maxorb Ag, Tegaderm and Cavilon skin prep. The entry site was snugged up with a single inverted 3-0 subcuticular Vicryl suture and the site sealed with glue and dressed with a Bioguard Hibiclens impregnated ring and that was covered with Maxorb Ag and Tegaderm with Cavilon skin prep. The patient was then taken back to the intensive care unit still in critical condition on Levophed and mechanical ventilation. I determined that the vancomycin I had ordered for the patient to be given yesterday afternoon was not given, and so will get 1 gram of vancomycin postop. TRANSINT:[id number] Voice Confirmation ID: [id number] DOCUMENT ID: [id number] VALERIE BOX MD at 1222 CC: CECY CRAWLEY MD [id number] DICTATION DATE: 12/02/16 1359 DISTILLERY SUPERVISOR: 12/02/16 2211 ADM IN [facility] [address] [place] [address]
--- NOTE | 2016-12-04 12:40 | NUR ---
PT EXTUBATED PER RT. O2 AT 2L VIA NC. BREATHING NORMAL AND UNLABORED. DENIES SOB VERABLLY. O2 AT 96%. CALL LIGHT IN REACH. CALLED AND NOTIFIED PER PT REQUEST.
--- NOTE | 2016-12-04 13:35 | NUR ---
ST IN ROOM PREFORMING SWALLOW EVAL. OK FOR REGULAR AND THIN LIQUID DIET.
--- NOTE | 2016-12-04 13:54 | NUR ---
DIPROVAN DECREAED TO 50MCG/KG/MIN
--- NOTE | 2016-12-04 14:00 | NUR ---
NO NEEDS AT THIS TIME. RESTING IN BED WATCHING TV. NO SOB NOTED. CALL LIGHT IN REACH. BP 103/84. SPO2 96%. REMAINS AT 2L VIA NC
--- NOTE | 2016-12-04 14:21 | NUR ---
TOLERATED PO MEDICATION WELL WITH NO DYSPAGAIA. INSENTIVE SPIROMETER GIVEN. USES CORRECTLY. ABLE TO GET JUST BELLOW THE 1000 TIGIST. CALL LIGHT IN REACH. WILL CONT POC.
--- NOTE | 2016-12-04 14:40 | NUR ---
* Is the patient Alert and Oriented? No 0 * How many steps to enter\exit or inside your home? Ramp 0 * PCP Dr. Hassan in [place], [place] 0 * Pharmacy [facility] 0 * Preadmission Environment Home with Family 0 * ADLs Partial Dependent 0 * Partial ADLs (Assistance needed) Ambulation Bathing Dressing Medication Management Toileting Transfers 0 * Equipment Wheelchair 0 * List name and contact numbers for known caregivers / representatives who currently or will assist patient after discharge: Spouse - Deepti [phone] 0 * Additional services required to return to the preadmission environment? Yes 0 * Can the patient safely return to the preadmission environment? Yes 0 * Has this patient been hospitalized within the prior 30 days at any hospital? No Patient Name: CELSA HARRIS Admission Status: ER Accout number: [id number] Admission Date: 11-30-2016 : 1970 Admission Diagnosis:SEPSIS, UNSPECIFIED ORGANISM Attending: EULOGIO Current LOS: 4 Planned Disposition: Home Primary Insurance: MEDICARE A & B Discharge Planning Comments: CM spoke with spouse, Deepti, via telephone to assess dc plans/needs. She states patient lives at home with her. She states he requires assistance with all ADL's & IADL's. He goes to in [place] @ [facility] @ [facility]. He is not currently receiving home health services. CM will follow & assist as needed. Shop Service Technician: Nupur Wright
--- NOTE | 2016-12-04 14:42 | NUR ---
REMAINS IN BED USING IS. NO SOB NOTED. SBP 108. NO C/O PAIN AT THIS TIME. 0 NEEDS VOICED. WILL CONT POC.
--- NOTE | 2016-12-04 15:20 | NUR ---
FAMILY AT BED SIDE. QUESTIONS ANSWERED. FAMILY WONDERING ABOUT ANOTHER FISTULA PLACEMENT. SURGEON HAS NOT ROUNDED. EXPLAINED TO FAMILY THAT I WILL ASK WHENEVER MD ROUNDS.
--- NOTE | 2016-12-04 15:23 | NUR ---
AND PT STATED IT HIS NORMAL IS TO NOT HAVE VERY MUCH URINE OUTPUT.
--- NOTE | 2016-12-04 15:50 | NUR ---
C/O A SORE THROAT. ICE CHIPS AND ICE CREAM GIVEN. HOB ELEVATED. NO S/SX OF DYSPAGIA NOTED.
--- NOTE | 2016-12-04 17:32 | NUR ---
BP 96/54. VSC452%. O2 AT 2L VIA NC. DENIES SOB. NO NEEDS AT THIS TIME. CALL LIGHT IN REACH. WILL CONT POC.
--- NOTE | 2016-12-04 17:54 | NUR ---
ACTIVELY USING IS. NO NEEDS AT THIS TIME. CALL LIGHT IN REACH.
--- NOTE | 2016-12-04 18:13 | NUR ---
FAMILY AT BED SIDE. QUESTIONS ANSWERED. NO NEEDS AT THIS TIME.
--- NOTE | 2016-12-04 19:13 | NUR ---
REPORT GIVEN TO ON COMING NURSE. PT HAS NO C/O PAIN/SOB. VS STABLE. BREATHING NORMAL AND UNLABORED WITH 2L VIA NC. CALL LIGHT IN REACH. WILL CONT POC.
--- NOTE | 2016-12-04 19:30 | NUR ---
REPORT RECIEVED. ASSESSMENT COMPLET EPER FLOW SHEET. VSS. NO NEW CHANGES. WILL CONTINUE TO MONITOR
--- NOTE | 2016-12-04 23:10 | NUR ---
REASSESSMENT COMPLETE NO NEW FINDINGS. GIVEN BUPRENEX PRN FOR PAIN. DENIES FURTHER NEEDS. WILL CONTINUE TO MONITOR
[2016-12-05] VITALS (29 sets, daily range): BP systolic 94–160; BP diastolic 50–118
--- NOTE | 2016-12-05 03:10 | NUR ---
REASSESSMENT COMPLETE PER FLOW SHEET. VSS. NO NEW CHANGES. WILL CONTINUE TO MONITOR
[2016-12-05 04:11] LABS: BASOPHILS 0 % (0-2); EOSINOPHILS 0 % (0-7); HEMATOCRIT 32.1 % (42.0-54.0); HEMOGLOBIN 9.7 g/dL (13.5-17.5); IMMATURE GRANULOCYTES 0.5 % (0-5); LYMPHOCYTES 1.1 % (15-50); MCH 32.3 pg (26.0-34.0); MCHC 30.2 g/dL (31.0-37.0); MEAN PLATELET VOLUME 10.4 fL (7.4-10.4); MONOCYTES 4.9 % (2-11); NEUTROPHILS 93.5 % (40-80); PLATELET COUNT 82 10x3/uL (130-400); RDW 14.5 % (11.5-14.5); WBC 11.9 10x3/uL (4.8-10.8)
[2016-12-05 04:28] LABS: CALCIUM 9.1 mg/dL (8.5-10.1); CARBON DIOXIDE 27.6 mmol/L (21.0-32.0); CREATININE - SERUM 11.6 mg/dL (0.6-1.3); VANCOMYCIN - RANDOM 25.6 ug/mL (10.0-20.0)
[2016-12-05 04:36] LABS: POTASSIUM - SERUM 5.6 mmol/L (3.5-5.1)
[2016-12-05 04:56] LABS: PLATELET ESTIMATE DECREASED
--- NOTE | 2016-12-05 07:00 | NUR ---
REPORT RECIEVED FROM ON COMING NURSE. PT IN BED USING INSENTIVE SPIROMETER. LEFT JUGULAR CVL PATENT. SEE FLUIDS FLOW SHEET. DRESSING C/D/I. BANDAGE TO RUE NOTED. TRIALASIS CATHETER TO LEFT GROIN. ON O2 AT 2L VIA NC. DENIES SOB. DENIES PAIN. RIGHT HAND CONTRACTED, RED AND SWOLLEN. PT STATED THE CONTRATION WAS NORMAL BUT THE SWELLING WAS NOT. STATED HE HAD RA. CALL LIGHT IN REACH. WILL CONT POC.
--- NOTE | 2016-12-05 10:00 | NUR ---
LYING IN BED STILL USING IS. DENIES PAIN/ NEEDS AT THIS TIME. CALL LIGHT IN REACH. WILL CONT POC.
--- NOTE | 2016-12-05 10:49 | NUR ---
SURGICAL ENDOSCOPIST AT PT BED SIDE.
--- NOTE | 2016-12-05 11:00 | NUR ---
Nutrition follow-up: Pt extubated 12/04 Speech approved a regular renal diet with thin liquids Labs reviewed Wt:[phone]# Will provide food choices with selective menus and honor food preferences within diet restrictions. RDN following.
--- NOTE | 2016-12-05 12:40 | NUR ---
DIALISIS NURSE AT BED SIDE. PT RECIEVING DIALISIS.
--- NOTE | 2016-12-05 13:40 | NUR ---
PT SBP DROPPING TO 75-80 VIA A LINE. BLOOD PRESSURE TAKEN VIA RIGHT ANKLE READING SBP OF 85-90. DIALISIS NURSE STATED SHE WAS UNABLE TO FINISH DIALISIS DUE TO TO MUCH ARTIRIAL PRESSURE IN THE HEMISPLIT. SURGEON NOTIFIED WITH NEW ORDERS TO DC A LINE AND FOR PT TO BE NPO AT MID NIGHT FOR NEW HEMOSPLIT PLACEMENT TOMORROW. LEVOPHED STARTED AND TITRATED TO 7MG. SBP 130. NO NEEDS AT THIS TIME. CALL LIGHT IN REACH. WILL CONT POC.
--- NOTE | 2016-12-05 14:00 | NUR ---
DIALISIS NURSE STATED SHE WAS ONLY ABLE TO PULL OFF 450ML OF FLUID. SPB TITRATING DOWN. CURRENTLY AT 3MG.
--- NOTE | 2016-12-05 14:30 | NUR ---
LEVOPHED TURNED OFF. SBP 120 AND CURRENTLY STABLE.
--- NOTE | 2016-12-05 14:40 | NUR ---
ARTERIAL LINE REMOVED AND PRESSURE DRESSING APPLIED. DRESSING C/D/I. CONSENT FOR FOR TOMORROW HEMOSPLIT CATHETER PLACEMENT SIGNED AND PLACED INTO CHART.
--- NOTE | 2016-12-05 15:09 | NUR ---
BP 114/64. LEVOPHED REMAINS OFF. PT DENIES NEEDS. CALL LIGHT IN REACH.
--- NOTE | 2016-12-05 18:19 | NUR ---
PT FAMILY AT BED SIDE. PT REFUSED BED BATH FROM THIS NURSE. REQUESTED THAT HIS GIVES IT WHO IS AN ERISA ATTORNEY BACK IN [employer]. SUPPLIES GIVEN AND PERSONAL HYGIEN SUPPLIES GIVEN.
--- NOTE | 2016-12-05 19:15 | NUR ---
REPORT RECIEVED. ASSESSMENT COMPLETE PER FLOW SHEET. VSS. PT GIVEN ICE CREAM ATE 100% STATES PAIN 10/10 FROM R HAND. GIVEN PRN BUPRENEX WILL REASSESS. VSS RESTING COMFORTABLY.
--- NOTE | 2016-12-05 23:00 | NUR ---
REASSESSMENT COMPLETE PER FLOW SHEET. VSS. NO NEW CHANGES. WILL CONTINUE TO MONITOR
[2016-12-06] VITALS (22 sets, daily range): BP systolic 87–154; BP diastolic 41–89
--- NOTE | 2016-12-06 01:12 | NUR ---
PT SLEEPING COMFORTABLY VSS NO NEW CHANGES WILL CONTINUE TO MONITOR
--- NOTE | 2016-12-06 03:28 | NUR ---
REASSESSMENT COMPLETE PER FLOW SHEET. VSS. WILL CONTINUE TO MONITOR
[2016-12-06 04:09] LABS: BASOPHILS 0 % (0-2); EOSINOPHILS 0 % (0-7); HEMATOCRIT 33.1 % (42.0-54.0); HEMOGLOBIN 9.9 g/dL (13.5-17.5); IMMATURE GRANULOCYTES 0.9 % (0-5); LYMPHOCYTES 3.7 % (15-50); MCH 32.7 pg (26.0-34.0); MCHC 29.9 g/dL (31.0-37.0); MCV 109.2 fL (80.0-100.0); MEAN PLATELET VOLUME 9.7 fL (7.4-10.4); MONOCYTES 8.1 % (2-11); NEUTROPHILS 87.3 % (40-80); PLATELET COUNT 104 10x3/uL (130-400); RBC 3.03 10x6/uL (4.20-6.10); RDW 14.5 % (11.5-14.5); WBC 10.6 10x3/uL (4.8-10.8)
[2016-12-06 04:19] LABS: INR 1.08 (0.85-1.17); PROTIME 13.9 SECONDS (11.6-15.0)
[2016-12-06 04:23] LABS: ANION GAP 18.9 mmol/L (8-16); CARBON DIOXIDE 28.1 mmol/L (21.0-32.0); CREATININE - SERUM 12.4 mg/dL (0.6-1.3); VANCOMYCIN - RANDOM 22.1 ug/mL (10.0-20.0)
--- NOTE | 2016-12-06 04:30 | NUR ---
G'S CALLED TO DR. MORGAN, SETTINGS CHANGED ON BIPAP
--- NOTE | 2016-12-06 04:50 | NUR ---
PT TO RAD FOR PA & LAT, PT TOLERATED WELL, COMPLETE LINEN CHANGE
--- NOTE | 2016-12-06 05:30 | NUR ---
PT DENIES ANY WANTS OR NEEDS AT THIS TIME, WILL CON'T TO MONITOR
--- NOTE | 2016-12-06 10:05 | NUR ---
PREOP DONE, CONCENTS ON CHART, K 6 AND TX W/CACL, GLUCOSE AND INSULIN AND NAHCO3. PT TO OR.
--- NOTE | 2016-12-06 12:46 | NUR ---
CXR DONE AND CALLED READING ROOM TO REPORT RATIONALE FOR QUICK READING. HD NURSE HERE SITTING UP IN ROOM. PT C/O PAIN. BUPERNIX GIVEN. PT DROWSY, PLACED BIPAP ON. SETTINGS BY RT. VSS, AFEBRILE, ALL CDP MONITORING ATTACHED AND ALARMS SET.
--- NOTE | 2016-12-06 13:44 | NUR ---
DR BOX REPORTS THAT HD/HEMASPLIT LINE IS OK TO USE. HD NURSE NOTIFIED.
--- NOTE | 2016-12-06 17:33 | NUR ---
HD COMPLETE, 1.3L TAKEN OFF DURING HD. VSS, AFEBRILE, MEAL TRAY SERVED, TAKEN OFF BIPAP AND O2 AT 2LNC, ABG'S DRAWN AND RESULTED.
--- NOTE | 2016-12-06 19:20 | NUR ---
REPORT RECIEVED. ASSESSMENT COMPLETE PER FLOW SHEET. VSS. GIVEN SPRITE PER REQUEST. DENEIS FURTHER NEEDS. WILL CONTINUE TO MONITOR
--- NOTE | 2016-12-06 21:40 | NUR ---
FAMILY AT BEDSIDE. COMPLETE BB LINEN CHANGE ADM. DENIES NEEDS. WILL CONTINUE TO MONITOR
--- NOTE | 2016-12-06 22:20 | NUR ---
BIPAP APPLIED PER REQUEST. DENIES NEEDS. VSS.
--- NOTE | 2016-12-06 23:00 | NUR ---
REASSESSMENT COMPLETE PER FLOW SHEET. NO NEW FINDINGS. WILL CONTINUE TO MONITOR
[2016-12-07] VITALS (23 sets, daily range): BP systolic 107–158; BP diastolic 36–76
--- NOTE | 2016-12-07 00:10 | NUR ---
PT INCREASINGLY AGGITATED, BECOMING CONFUSED TO SITUATION. REORIENTED. REPOSITIONED UP IN BED. BIPAP REAPPLIED. WILL CONTINUE TO MONITOR. RESTING COMFORTABLY.
--- NOTE | 2016-12-07 01:24 | NUR ---
PT SLEEPING COMFORTABLY. WILL CONTINUE TO MONITOR
--- NOTE | 2016-12-07 03:30 | NUR ---
PT SLEEPING COMFORTABLY. VSS. NO NEW CHANGES. WILL CONTINUE TO MONITOR
[2016-12-07 03:48] LABS: BASOPHILS 0.2 % (0-2); EOSINOPHILS 1.4 % (0-7); HEMATOCRIT 34.4 % (42.0-54.0); HEMOGLOBIN 9.9 g/dL (13.5-17.5); IMMATURE GRANULOCYTES 2.1 % (0-5); LYMPHOCYTES 8.9 % (15-50); MCH 32.7 pg (26.0-34.0); MCHC 28.8 g/dL (31.0-37.0); MEAN PLATELET VOLUME 10.2 fL (7.4-10.4); MONOCYTES 11.1 % (2-11); NEUTROPHILS 76.3 % (40-80); RBC 3.03 10x6/uL (4.20-6.10); RDW 14.9 % (11.5-14.5); WBC 13.2 10x3/uL (4.8-10.8)
[2016-12-07 03:49] LABS: MCV 113.5 fL (80.0-100.0); PLATELET COUNT 129 10x3/uL (130-400)
[2016-12-07 04:02] LABS: ANION GAP 8.1 mmol/L (8-16); CALCIUM 8.9 mg/dL (8.5-10.1); CREATININE - SERUM 8.6 mg/dL (0.6-1.3); POTASSIUM - SERUM 5.1 mmol/L (3.5-5.1); VANCOMYCIN - RANDOM 15.9 ug/mL (10.0-20.0)
--- NOTE | 2016-12-07 05:06 | NUR ---
PT ALERT ORIENTED X4; ABG'S READ BACK 7.[address] MORGAN NOTIFIED PT ON BIPAP THROUGHOUT THE NIGHT PT STATES DOES NOT WANT TO BE INTUBATED. WILL REASSESS. VSS AT THIS TIME. WILL CONTINUE TO MONITOR
[2016-12-07 08:18] LABS: HEPATITIS C ANTIBODY <0.1 (0.0-0.9)
--- NOTE | 2016-12-07 08:29 | NUR ---
SPOKE WITH PT IN REGARDS TO STATING TO LAST SHIFT NURSE THAT HE DID NOT WANT TO BE INTUBATED. WHEN ASKING PT HIS DECISION FOR STATUS PT HAD STATED "I DO NOT WANT TO " STAFF THEN ASKED PT IF HE WISHED TO REMAIN FULL CODE. PT STATED "YES." EXPLAINED TO PT WHAT A FULL CODE ENTAILS, PT THEN STATED AGAIN THAT HE DID WISH TO BE A FULL CODE. WILL CONTINUE PLAN OF CARE.
--- NOTE | 2016-12-07 09:59 | NUR ---
NUTRITION MONITORING & EVAL CHART REVIEWED, PT VISIT. VERY LITTLE INTAKE BREAKFAST. PT STATES HE IS "SORE". WILL CONTINUE TO PROVIDE RENAL DIET, MONITOR PO INTAKE. RD FOLLOWING
--- NOTE | 2016-12-07 10:17 | NUR ---
CALLED DR BOX AT THIS TIME TO NOTIFY OF LEFT GROIN CVL SITE HAS BEEN IN PLACE SINCE AROUND TIME OF ADMISSION, SITE IS NOTED SLIGHTLY FIRM TO TOUCH, TENDER, AND HAS SCANT BRIGHT RED BLOOD UNDER DRESSING SITE. PAGED DR BOX AT THIS TIME FOR FURTHER ORDERS REGARDING CVL AND POSSIBLY PLACING NEW PERIPHERAL IV. WILL CONTINUE PLAN OF CARE.
--- NOTE | 2016-12-07 11:00 | NUR ---
RECIEVED CALLBACK FROM DR BXO NOTED CVL TO LT GROIN WELL HEMASPLIT TO LT JUGULAR WERE BOTH PLACED ON 12/06 AT 0400. NO NEW ORDERS RECIEVED REGARDING IV SITES. WILL CONTINUE PLAN OF CARE.
--- NOTE | 2016-12-07 12:04 | NUR ---
NO ACUTE DISTRESS NOTED. BIPAP IN PLACE. PT ABLE TO STATE NEEDS. AT BEDSIDE. UPDATE GIVEN. WILL CONTINUE PLAN OF CARE.
--- NOTE | 2016-12-07 14:04 | NUR ---
RESTING IN BED AT THIS TIME. NO ACUTE DISTRESS NOTED. BIPAP IN PLACE. RESPIRATIONS STEADY AND UNLABORED. ABLE TO STATE NEEDS. WILL CONTINUE PLAN OF CARE.
--- NOTE | 2016-12-07 16:52 | NUR ---
NO ACUTE DISTRESS NOTED. PT RESTING IN BED AT THIS TIME. AWAKENS EASILY WHEN SPOKEN TO. PT STATES HE IS SLEEPT AND WISHES TO REST AND DOES NOT WANT TO EAT SUPPER. SUPPER TRAY LEFT IN PTS ROOM IN CASE HE DECIDES HE WANTS TO EAT LATER. NO ACUTE DISTERSS NOTED. WILL CONTINUE PLAN OF CARE.
--- NOTE | 2016-12-07 17:33 | NUR ---
NOTED DRAINAGE TO LT GROIN CVL SITE WITH LIGHT RED IN COLOR. SITE FLUSHES WELL. NO ACUTE DISTRESS NOTED. ALSO AT THIS TIME LINEN CHANGE PROVIDED. PT TURNED Q2H. DENIES ANY NEEDS. WILL CONTINUE PLAN OF CARE.
--- NOTE | 2016-12-07 18:18 | NUR ---
AT BEDSIDE FEEDING PT AT THIS TIME. NO ACUTE DISTRESS NOTED. WILL CONTINUE PLAN OF CARE.
--- NOTE | 2016-12-07 19:15 | NUR ---
REPORT RECVD. CARE ASSUMED. INITIAL ASSMNT COMPLETED. SEE FLOWSHEET FOR ALL FINDINGS. CONFUSED/LETHARGIC WITH GARBLED SPEECH. ON BIPAP AT 35%. SPO2 97%. LUNGS SOUNDS WITH SCANT CRACKLES, DIM IN BASES. S1S2 REG. SR ON THE MONITOR. PULSES PALP, WEAK. SCDS IN USE. AFEBRILE. ABD DISTENDED. BS HYPO X4. ANURIC. BLADDER NON PALP. FISTULA CDI. LEFT SC HEMASPLIT INTACT. TURNED AND REPOSITIONED. REPOSITIONS SELF AT TIMES. HOB UP. C/L IN REACH. CONT CURRENT POC.
--- NOTE | 2016-12-07 19:15 | NUR ---
RECEIVED CARE OF PT, ASSESSMENT PER FLOWSHEET. PT RESTING IN BED WITH BIPAP IN PLACE, 35% FIO2, PT AROUSES EASILY TO VOICE, ANSWERS ALL QUESTIONS APPROPRIATELY, ORAL CARE PROVIDED, DRESSING TO RT UPPER ARM NOTED CDI, PPP, LT LT GROIN CVL PATENT WITH NS INFUSING AT KVO, CRACKLES AUSCULTATED BILATERALLY WITH DIMINISHED BASES, HR SR AT A RATE OF 90 ON CM, POSITIONED FOR COMFORT, CALL LIGHT IN REACH, WILL MONITOR.
--- NOTE | 2016-12-07 21:15 | NUR ---
NO VISITORS PRESENT AT THIS TIME, BIPAP MASK ADJUSTED PER REQUEST, REPOSITIONED FOR COMFORT, BED LOW, CALL LIGHT IN REACH. VSS
--- NOTE | 2016-12-07 21:20 | NUR ---
PT FAMILY IN FOR VISITATION, PT REPOSITIONED, UPDATE GIVEN, ALL QUESTIONS ANSWERED.
--- NOTE | 2016-12-07 23:30 | NUR ---
REASSESSMENT PER FLOWSHEET, ORAL CARE PROVIDED, HR [address] ON CM, PT POSITIONED FOR COMFORT SUPPORTED WITH PILLOWS, CALL LIGHT IN REACH, BED LOW.
[2016-12-08] VITALS (25 sets, daily range): BP systolic 99–161; BP diastolic 47–92
--- NOTE | 2016-12-08 01:20 | NUR ---
PT RESTING IN BED WITH EYES CLOSED, VSS, HR ST ON CM, CONT TO MONITOR.
--- NOTE | 2016-12-08 01:40 | NUR ---
BIPAP MASK ADJUSTED PER PT REQUEST, POSITIONED FOR COMFORT, VSS, CONT POC.
--- NOTE | 2016-12-08 03:15 | NUR ---
REASSESSMENT PER FLOWSHEET, BIPAP MASK READJUSTED PER PT C/O OF DISCOMFORT AROUND NECK, ORAL CARE PROVIDED, HR SR ON CM.
[2016-12-08 04:08] LABS: BASOPHILS 0.1 % (0-2); EOSINOPHILS 1.6 % (0-7); HEMATOCRIT 31.2 % (42.0-54.0); HEMOGLOBIN 9.1 g/dL (13.5-17.5); IMMATURE GRANULOCYTES 0.9 % (0-5); LYMPHOCYTES 7.3 % (15-50); MCH 32.5 pg (26.0-34.0); MCHC 29.2 g/dL (31.0-37.0); MONOCYTES 6.4 % (2-11); NEUTROPHILS 83.7 % (40-80); PLATELET COUNT 124 10x3/uL (130-400); RDW 14.9 % (11.5-14.5); WBC 15.4 10x3/uL (4.8-10.8)
[2016-12-08 04:14] LABS: MCV 111.4 fL (80.0-100.0)
[2016-12-08 04:33] LABS: ANION GAP 19.5 mmol/L (8-16); CALCIUM 8.5 mg/dL (8.5-10.1); CARBON DIOXIDE 25.7 mmol/L (21.0-32.0); CREATININE - SERUM 10.4 mg/dL (0.6-1.3); POTASSIUM - SERUM 5.2 mmol/L (3.5-5.1); VANCOMYCIN - RANDOM 20.9 ug/mL (10.0-20.0)
--- NOTE | 2016-12-08 05:11 | NUR ---
ABG RESULTS CALLED TO DR MORGAN, NO NEW ORDERS RECEIVED AT THIS TIME.
--- NOTE | 2016-12-08 06:21 | NUR ---
PT KALEB CALLED, PASSWORD PROVIDED, UPDATE GIVEN AND ALL QUESTIONS ANSWERED.
--- NOTE | 2016-12-08 14:09 | NUR ---
HD IN PROGRESS, HD NURSE AT BEDSIDE
--- NOTE | 2016-12-08 16:42 | NUR ---
TX COMPLETE. 2 ALBUMIN GIVEN DURING TX FOR HYPOTENSION. 3L TAKEN OFF. PT RESTED WITH BIPAP ON FOR DURATION OF TX. NO COMPLAINTS.
--- NOTE | 2016-12-08 21:15 | NUR ---
SPOKE WITH VIA PHONE. PASSWORD VERIFIED. UPDATE GIVEN. TEACHING COMPLETED. REPOSITIONED FOR COMFORT AND SKIN INTEGRITY. HS MEDS GIVEN. HOB UP. NO DISTRESS. CONT CURRENT POC.
--- NOTE | 2016-12-08 23:15 | NUR ---
REASSESSMENT VCOMPLETED. SEE FLOWSHEET FOR ALL FINDINGS. CONFUSED/LETHARGIC WITH GARBLED SPEECH. ON BIPAP AT 35%. SPO2 97%. LUNGS SOUNDS WITH SCANT CRACKLES, DIM IN BASES. S1S2 REG. SR ON THE MONITOR. PULSES PALP, WEAK. SCDS IN USE. AFEBRILE. ABD DISTENDED. BS HYPO X4. ANURIC. BLADDER NON PALP. FISTULA CDI. LEFT SC HEMASPLIT INTACT. TURNED AND REPOSITIONED. REPOSITIONS SELF AT TIMES. HOB UP. C/L IN REACH. CONT CURRENT POC.
[2016-12-09] VITALS (25 sets, daily range): BP systolic 95–136; BP diastolic 46–81
--- NOTE | 2016-12-09 01:15 | NUR ---
TURNED AND REPOSITIONED. AROUSES TO VOICE. C/O PAIN. RESTS QUICKLY AFTER REPOSITIONING. VSS. HOB UP. CONT CURRENT POC.
--- NOTE | 2016-12-09 03:30 | NUR ---
REASSESSMENT COMPLETED. SEE FLOWSHEET FOR ALL FINDINGS. CONFUSED/LETHARGIC, AROUSES TO VOICE. ON O2 AT 2LPM NC. SPO2 97%. LUNGS SOUNDS WITH SCANT CRACKLES, DIM IN BASES. S1S2 REG. SR ON THE MONITOR. PULSES PALP, WEAK. SCDS IN USE. AFEBRILE. ABD DISTENDED. BS HYPO X4. ANURIC. BLADDER NON PALP. FISTULA CDI. LEFT SC HEMASPLIT INTACT. TURNED AND REPOSITIONED. REPOSITIONS SELF AT TIMES. HOB UP. C/L IN REACH. CONT CURRENT POC.
--- NOTE | 2016-12-09 05:05 | NUR ---
TURNED AND REPOSITIONED. ORAL CARE PROVIDED. YELLS OUT. CONFUSED. VSS. ON RA. HOB UP. CONT POC.
[2016-12-09 05:23] LABS: BASOPHILS 0.1 % (0-2); EOSINOPHILS 1.4 % (0-7); HEMATOCRIT 26.1 % (42.0-54.0); HEMOGLOBIN 7.9 g/dL (13.5-17.5); IMMATURE GRANULOCYTES 0.7 % (0-5); LYMPHOCYTES 4.5 % (15-50); MCH 32.6 pg (26.0-34.0); MCHC 30.3 g/dL (31.0-37.0); MEAN PLATELET VOLUME 10.1 fL (7.4-10.4); MONOCYTES 5.8 % (2-11); NEUTROPHILS 87.5 % (40-80); RBC 2.42 10x6/uL (4.20-6.10); RDW 14.7 % (11.5-14.5); WBC 12.3 10x3/uL (4.8-10.8)
[2016-12-09 05:35] LABS: MCV 107.9 fL (80.0-100.0); PLATELET COUNT 88 10x3/uL (130-400)
[2016-12-09 05:46] LABS: ALBUMIN 2.5 g/dL (3.4-5.0); ANION GAP 15.7 mmol/L (8-16); BILIRUBIN - TOTAL 0.5 mg/dL (0.2-1.3); CALCIUM 8.2 mg/dL (8.5-10.1); CARBON DIOXIDE 28.5 mmol/L (21.0-32.0); MAGNESIUM - SERUM 2.1 mg/dL (1.8-2.4); PHOSPHOROUS 7.1 mg/dL (2.5-4.9); PROTEIN - SERUM 5.5 g/dL (6.4-8.2); VANCOMYCIN - RANDOM 17.9 ug/mL (10.0-20.0)
[2016-12-09 05:49] LABS: CREATININE - SERUM 7.3 mg/dL (0.6-1.3); POTASSIUM - SERUM 4.2 mmol/L (3.5-5.1)
[2016-12-09 05:55] LABS: PLATELET ESTIMATE DECREASED; PLATELET MORPHOLOGY NORMAL PLT MORPH
--- NOTE | 2016-12-09 06:19 | NUR ---
SPOKE WITH VIA PHONE. UPDATE GIVEN.
[2016-12-09 11:11] LABS: BASOPHILS 0.1 % (0-2); EOSINOPHILS 1.4 % (0-7); HEMATOCRIT 29.6 % (42.0-54.0); HEMOGLOBIN 8.8 g/dL (13.5-17.5); IMMATURE GRANULOCYTES 1.1 % (0-5); LYMPHOCYTES 6.5 % (15-50); MCHC 29.7 g/dL (31.0-37.0); MCV 107.6 fL (80.0-100.0); MEAN PLATELET VOLUME 10.3 fL (7.4-10.4); MONOCYTES 7.7 % (2-11); NEUTROPHILS 83.2 % (40-80); PLATELET COUNT 84 10x3/uL (130-400); RBC 2.75 10x6/uL (4.20-6.10); RDW 14.7 % (11.5-14.5); WBC 10.9 10x3/uL (4.8-10.8)
--- NOTE | 2016-12-09 12:09 | NUR ---
LEFT FEMORAL CVL DRESSING CHANGED
[2016-12-09 17:07] LABS: AEROBE ID Final report (())
--- NOTE | 2016-12-09 19:15 | NUR ---
REPORT RECVD. CARE ASSUMED. INITIAL ASSMNT COMPLETED. SEE FLOWSHEET FOR ALL FINDINGS. AWAKE AND AOX4. RESP UNLABORED. O2 AT 2 LPM NC. SPO2 97% LUNGS SOUNDS WITH SCANT CRACKLES, DIM IN BASES. S1S2 REG. SR ON THE MONITOR PULSES PALP, WEAK. SCDS IN USE. AFEBRILE. ABD DISTENDED. BS HYPO X4. ANURIC BLADDER NON PALP. FISTULA CDI. LEFT SC HEMASPLIT INTACT. TURNED AND REPOSITIONED. REPOSITIONS SELF AT TIMES. HOB UP. C/L IN REACH. CONT CURRENT POC.
--- NOTE | 2016-12-09 21:15 | NUR ---
HS MEDS GIVEN NO DIFF. TAKING PO FLUIDS NO DIFF. REPOSITIONED FOR COMFORT. PRN NORCO GIVEN FOR INC LEVEL OF BACK PAIN. VSS. NO FURTHER NEEDS VOICED. CONT POC.
--- NOTE | 2016-12-09 23:15 | NUR ---
REASSESSMENT COMPLETED. SEE FLOWSHEET FOR ALL FINDINGS. AWAKE AND AOX4. RESP UNLABORED. O2 AT 2 LPM NC. SPO2 97% LUNGS SOUNDS WITH SCANT CRACKLES, DIM IN BASES. S1S2 REG. SR ON THE MONITOR PULSES PALP, WEAK. SCDS IN USE. AFEBRILE. ABD DISTENDED. BS HYPO X4. ANURIC BLADDER NON PALP. FISTULA CDI. LEFT SC HEMASPLIT INTACT. TURNED AND REPOSITIONED. REPOSITIONS SELF AT TIMES. HOB UP. C/L IN REACH. CONT CURRENT POC.
[2016-12-10] VITALS (17 sets, daily range): BP systolic 102–130; BP diastolic 44–82
--- NOTE | 2016-12-10 01:24 | NUR ---
TURNED AND REPOSITIONED. DENIES NEEDS. VSS. HOB UP. C/L IN REACH. CONT POC.
--- NOTE | 2016-12-10 03:15 | NUR ---
REASSESSMENT COMPLETED. SEE FLOWSHEET FOR ALL FINDINGS. AWAKE AND AOX4. RESP UNLABORED ON BIPAP. SPO2 97% LUNGS SOUNDS WITH SCANT CRACKLES, DIM IN BASES. S1S2 REG. SR ON THE MONITOR PULSES PALP, WEAK. SCDS IN USE. AFEBRILE. ABD DISTENDED. BS HYPO X4. ANURIC BLADDER NON PALP. FISTULA CDI. LEFT SC HEMASPLIT INTACT. TURNED AND REPOSITIONED. REPOSITIONS SELF AT TIMES. HOB UP. C/L IN REACH. CONT CURRENT POC.
[2016-12-10 04:22] LABS: BASOPHILS 0.1 % (0-2); EOSINOPHILS 2.3 % (0-7); HEMATOCRIT 25.7 % (42.0-54.0); HEMOGLOBIN 7.7 g/dL (13.5-17.5); IMMATURE GRANULOCYTES 1.3 % (0-5); MCV 106.6 fL (80.0-100.0); MEAN PLATELET VOLUME 9.8 fL (7.4-10.4); MONOCYTES 9.2 % (2-11); NEUTROPHILS 79.1 % (40-80); RBC 2.41 10x6/uL (4.20-6.10); RDW 14.8 % (11.5-14.5); WBC 9.1 10x3/uL (4.8-10.8)
[2016-12-10 04:27] LABS: PLATELET COUNT 105 10x3/uL (130-400)
[2016-12-10 04:35] LABS: ANION GAP 13.4 mmol/L (8-16); CARBON DIOXIDE 29.7 mmol/L (21.0-32.0); POTASSIUM - SERUM 4.1 mmol/L (3.5-5.1); VANCOMYCIN - RANDOM 14.6 ug/mL (10.0-20.0)
[2016-12-10 04:38] LABS: CREATININE - SERUM 9.2 mg/dL (0.6-1.3)
--- NOTE | 2016-12-10 05:12 | NUR ---
RESTING NO DISTRESS. VSS. SR ON THE MONITOR. WEARING BIPAP. REPOSITIONS SELF. HOB UP. C/L IN REACH. BED ALARM ON. CONT POC.
--- NOTE | 2016-12-10 07:00 | NUR ---
PT AROUSES EASILY WITH VERBAL STIMULI, ALERT AND ORIENTED, RESPIRATIONS EVEN AND UNLABORED, DRESSING TO RUE CDI, HEMOSPLIT TO LEFT SUBCLAVIAN CDI, LEFT GROIN CENTRAL LINE CDI, REPOSITIONED, VSS, DENIES ALL NEEDS, WILL CONTINUE TO M ONITOR
--- NOTE | 2016-12-10 08:59 | NUR ---
VSS, REPOSITIONED, REFUSES BREAKFAST, WHEN TURNED PT TURNS SELF BACK ONTO HIS BACK, WILL CONTINUE TO MONITOR
--- NOTE | 2016-12-10 10:00 | NUR ---
Nutrition follow-up: Diet: Renal PO intake ~25% of meals Labs reviewed Wt: [phone]# RDN will order Nepro BID to increase kcal/protein intake. RDN following pts progress.
--- NOTE | 2016-12-10 11:05 | NUR ---
BLOOD TO BE ADMINISTERED BY DIALYSIS, CHECKED WITH DIALYSIS NURSE, MARIA ESTHER, WILL CONTINUE TO MONITOR
--- NOTE | 2016-12-10 13:00 | NUR ---
PT REPOSITIONED, CONTINUES ON DIALYSIS, VSS, WILL CO NTINUE TO MONITOR
--- NOTE | 2016-12-10 13:46 | NUR ---
SPOKE WITH [facility] TO TRANSFER TO [facility]
--- NOTE | 2016-12-10 17:08 | NUR ---
PT REPOSITIONED, REFUSED DINNER, VSS, WILL CO NTINUE TO MONITOR
--- NOTE | 2016-12-10 18:00 | NUR ---
PATIENT TO ROOM AT THIS TIME. CVL IN GROIN INTACT. VALERIO SPLIT INTACT. DRESSING CHANGED AT THIS TIME DUE TO BLOOD UNDERDRESSING. NOTED NONBLANCHABLE REDNESS AND DTI ON COCCYX. SACRAL DRESSING APPLIED. PATIENT STATED HE IS IN PAIN. FAMILY DOES NOT WANT HIM TO RECIEVE ANY NARCOTICS. EXPLAINED I WOULD LOOK AT ORDERS. VERBALIZED UNDERSTANDING. CALL LIGHT WITHIN REACH.
--- NOTE | 2016-12-10 18:12 | NUR ---
REPORT CALLED TO MELANY PARRISH AND ALL BELONGINGS TRANSFERRED TO ROOM 2101
--- NOTE | 2016-12-10 19:15 | NUR ---
EXPLAINED TO FAMILY THAT ONLY NORCO IS ORDERED AT T HIS TIME. VERBALIZED UNDERSTANDING. STATED THEY WOULD JUST WAIT FOR NOW. PATIENT IN BED WITH EYES CLOSED RESTING. CALL LIGHT WITHIN REACH.
--- NOTE | 2016-12-10 21:40 | NUR ---
TRIED TO CALL SPIKE MACHINE FEEDER FOR TYLENOL AT THIS TIME. NO PAGE RETURNED. EXPLAINED AGAIN TO FAMILY THAT I AM WAITING FOR PHYSICIAN. VERBALIZED UNDERSTANDING. CALL LIGHT WITHIN REACH.
--- NOTE | 2016-12-10 21:42 | NUR ---
PATIENT FAMILY DECIDED TO LET PATIENT TAKE NORCO X 1 5 MG TABLET. IV INTACT. CALL [facility] WITHIN REACH. WAITING FOR RT FOR BIPAP
--- NOTE | 2016-12-10 23:13 | NUR ---
PATIENT REPORT GIVEN TO FELIZ SANTIAGO. PATIENT IN BED, EYES CLOSED RESTING QUIETLY AT THIS TIME. CALL LIGHT WITHIN REACH.
--- NOTE | 2016-12-10 23:34 | NUR ---
RESTING IN BED WITH EYES CLOSED. BIPAP IN PLACE. NO S/S OF DISTRESS OBSERVED. CENTRAL LINE TO LEFT BELOW THE GROIN AREA PATENT. DRESSING TO RIGHT UPPER ARM. CLEAN, DRY AND INTACT. HEMOSPLIT TO LEFT UPPER CHEST. DRESSING TO SITE INTACT. NO REDNESS, SWELLING OR DRAINAGE TO SITE.
--- NOTE | 2016-12-11 01:12 | NUR ---
RESTING IN BED WITH EYES CLOSED. NO S/S OF DISTRESS OBSERVED. BIPAP IN PLACE AND RESPIRATIONS EVEN AND UNLABORED.
[2016-12-11 01:25] VITALS: BP 108/31
--- NOTE | 2016-12-11 03:45 | NUR ---
C/O GENERALIZED PAIN AT 9. REQUESTED TO BE TURNED ON HIS SIDE. REPOSITIONED AND NORCO GIVEN PER ORDERS. WILL REASSESS.
[2016-12-11 05:02] VITALS: BP 98/31
[2016-12-11 06:09] LABS: BASOPHILS 0.3 % (0-2); EOSINOPHILS 2.5 % (0-7); HEMATOCRIT 30.3 % (42.0-54.0); IMMATURE GRANULOCYTES 1.5 % (0-5); LYMPHOCYTES 8.9 % (15-50); MCH 32.5 pg (26.0-34.0); MCHC 31.4 g/dL (31.0-37.0); MEAN PLATELET VOLUME 9.9 fL (7.4-10.4); MONOCYTES 14.2 % (2-11); NEUTROPHILS 72.6 % (40-80); PLATELET COUNT 105 10x3/uL (130-400); RDW 16.7 % (11.5-14.5)
[2016-12-11 06:21] LABS: HEMOGLOBIN 9.5 g/dL (13.5-17.5); MCV 103.8 fL (80.0-100.0); RBC 2.92 10x6/uL (4.20-6.10)
[2016-12-11 06:34] LABS: ANION GAP 12.2 mmol/L (8-16); CALCIUM 8.8 mg/dL (8.5-10.1); CARBON DIOXIDE 29.6 mmol/L (21.0-32.0); POTASSIUM - SERUM 3.8 mmol/L (3.5-5.1); VANCOMYCIN - RANDOM 21.8 ug/mL (10.0-20.0)
[2016-12-11 06:37] LABS: CREATININE - SERUM 6.5 mg/dL (0.6-1.3)
--- NOTE | 2016-12-11 07:49 | NUR ---
0730-AM ROUNDING DONE WITH PATIENT LAYING ON RIGHT SIDE, ON O2 2L PER NC.BIPAP IN ROOM. LEFT HEMISPLIT SEEN WITH DRY, INTACT DRESSING. LEFT UPPER THIGH SEEN WITH TRIPLE LUMEN CVL WITH DRY, INTACT DRESSING, NS INFUSING AT 30 CC/HR. RIGHT UPPER ARM SEEN WITH DRY INTACT MALLIKA, FELIPA INTACT ABOVE THIS TO HEALING SURGICAL INCISION. BRUISING SEEN TO LEFT BACK OF NECK AREA. PATIENT REPORTS TO NO MAKING ANY URINE. ESRD WITH DIALYSIS M,W,F. OTTO SEEN WITH DATE 12/10/16 TO COCCYX AREA. CALL LIGHT AT SIDE, CPOC.
[2016-12-11 09:28] VITALS: BP 60/36
--- NOTE | 2016-12-11 09:37 | NUR ---
LOTRISONE CREAM APPLIE TO UPPER BACK ON RASH AREA DIRECTED.
--- NOTE | 2016-12-11 10:22 | NUR ---
REPOSITIONED WITH 'S HELP TO LEFT SIDE WITH 2 PILLOW BEHIND BACK FOR COMFORT.
[2016-12-11 12:29] VITALS: BP 77/41
--- NOTE | 2016-12-11 14:42 | NUR ---
1445-TURNED TO LEFT SIDE WITH PILLOW X 2 BEHIND BACK FOR COMFORT.
[2016-12-11 15:59] VITALS: BP 80/45
--- NOTE | 2016-12-11 17:06 | NUR ---
PATIENT APPEARING TO BE ASLEEP, RESP EVEN AND NON LABORED. AROUSES EASILY. ENCOURGED TO EAT SOME SUPPER. WILL CONTINUE TO FOLLOW.
[2016-12-11 19:00] VITALS: BP 98/47
--- NOTE | 2016-12-11 19:30 | NUR ---
REPORT RECIEVED. PT RESTING QUIETLY, INTRODUCED SELF AND PLACED NAME ON WHITE BOARD. PT DENIES NEEDS AT THIS TIME. PT CURRENTLY ON 3L NC. EXPLAINED TO PT THAT HE WILL NEED TO BE PUT ON HIS BIPAP TONIGHT DURING SLEEP. PT VERBALIZED UNDERSTANDING. RR EVEN AND UNLABORED, WILL CTM.
--- NOTE | 2016-12-11 23:03 | NUR ---
PT READY TO SLEEP, PAGED RESPIRATORY TO PUT PT ON BIPAP.
--- NOTE | 2016-12-12 00:30 | NUR ---
DRESSING CHANGE COMPLETED, USED DAKINS SOLUTION PER ORDERS. PACKED SMALL, ROUND, ABOUT 2X2 CM WOUND ON RIGHT UPPER ARM, WITH WET GUAZE. COVERED WITH DRY 4X4 AND CURLEX. PT TOLERATED WELL.
[2016-12-12 04:14] VITALS: BP 107/30
[2016-12-12 07:13] LABS: BASOPHILS 0.1 % (0-2); EOSINOPHILS 3.5 % (0-7); HEMATOCRIT 32.2 % (42.0-54.0); HEMOGLOBIN 9.9 g/dL (13.5-17.5); IMMATURE GRANULOCYTES 1.8 % (0-5); LYMPHOCYTES 12.8 % (15-50); MCHC 30.7 g/dL (31.0-37.0); MCV 104.2 fL (80.0-100.0); MEAN PLATELET VOLUME 9.6 fL (7.4-10.4); MONOCYTES 14.7 % (2-11); NEUTROPHILS 67.1 % (40-80); PLATELET COUNT 105 10x3/uL (130-400); RBC 3.09 10x6/uL (4.20-6.10); RDW 15.9 % (11.5-14.5); WBC 7.4 10x3/uL (4.8-10.8)
[2016-12-12 07:28] LABS: ANION GAP 14.2 mmol/L (8-16); CALCIUM 9.1 mg/dL (8.5-10.1); CARBON DIOXIDE 28.7 mmol/L (21.0-32.0); PHOSPHOROUS 6.4 mg/dL (2.5-4.9); POTASSIUM - SERUM 3.9 mmol/L (3.5-5.1); VANCOMYCIN - RANDOM 19.4 ug/mL (10.0-20.0)
[2016-12-12 07:32] LABS: CREATININE - SERUM 8.6 mg/dL (0.6-1.3)
--- NOTE | 2016-12-12 07:34 | NUR ---
PT SITTING UP IN BED SLEEPING ARROUSES EASILY DENIES NEEDS WILL CONT TO MONITOR
--- NOTE | 2016-12-12 08:45 | NUR ---
CHANGED PT CVL DRESSING TO LEFT GROIN STERILE TECHNIQUE INITIATED. SWAB CAPS IN USE DRESSING ADHERED TO SKIN BIOPATCH IN PLACE. LEFT CHEST HEMOSPLIT DRESSING ALSO CHANGED STERILE TECHNIQUE INITIATED. SWAB CAPS AND BIOPATCH IN PLACE. R FA DRESSING CHANGED PER ORDER. ALL SIGNED AND DATED.
[2016-12-12 08:49] VITALS: BP 103/47
--- NOTE | 2016-12-12 13:09 | NUR ---
PT IS REFUSING TO BE TURNED. PT C/O NAUSEA AND SAYS THAT IS WHY HE HASNT "EATEN IN 3 DAYS". OFFERED FOR PT TO HAVE ORDERED PRN ZOFRAN OR PHENEGRAN. PT REFUSED. PT DENIES ANY NEEDS RIGHT NOW. WISHES TO SPEAK TO RENAL DR. EDIS LOZANO ROUNDED.
--- NOTE | 2016-12-12 14:40 | NUR ---
TALKED WITH DR GARCIA ABOUT PT CONCERNS. PT WANTED TO DC NORCO AND GET TYLENOL ORDER. DONE.
--- NOTE | 2016-12-12 14:45 | NUR ---
WILL GIVE PT VANC WHEN BROUGHT UP FROM PHARMACY
--- NOTE | 2016-12-12 15:34 | NUR ---
PT BP WAS 62/36 CHECKED SEVERAL TIMES MANUALLY. PT IS NOT SYMPTOMATIC. DR GARCIA ON FLOOR SAID TO PUT PT IN TREND AND RECHECK LATER. SAYS IT IS CHRONIC FOR PT.
--- NOTE | 2016-12-12 16:03 | NUR ---
SPOKE WITH DR GARCIA ABOUT PT CVL LINE LEAKING AND NOT DRAWING BLOOD. PT CVL SITE IS SWOLLEN AND BRUISED SMALL SITE ABOUT CVL RIGHT IN CREASE OF GROIN SCAB NOTED. DR GARCIA LOOKED AT SITE AND SAID THAT IT DID NOT LOOK INFECTED. SAID IF CVL CONTINUED TO NOT DRAW BLOOD/FLUSH THEN TO HAVE SURGEON POLYMER TESTER CHANGE IT OUT. AFTER MULTIPLE ATTEMPTS SUCCESSFULLY GOT BLOOD RETURN FROM BROWN PORT. ALL LINES ARE FLUSHING WITHOUT LEAKING. WILL CONT TO MONITOR CVL. DRESSING WAS CHANGED AGAIN USING STERILE TECHNIQUE
[2016-12-12 16:09] VITALS: BP 62/37
--- NOTE | 2016-12-12 16:50 | NUR ---
Patient Name: CELSA HARRIS Encounter No: [id number] : 1970 Primary Insurance: MEDICARE A & B Anticipated DC Date: Planned Disposition: Home DCP follow-up note: CM RECEIVED CALL FROM PT'S SPOUSE, KALEB HARRIS, ; KALEB REPORTS THAT [facility] [place] IS HAVING DIFFICULTY WITH RECEIVING DOCUMENTATION FROM DOCTOR IN [place] TO OBTAIN HOME BIPAP. KALEB ASKED THAT CM CONTACT CHITRA AT [facility] [place] TO ASSIST IF POSSIBLE. CM SPOKE TO DR. MORALES WHO INFORMED CM THAT HE WOULD LIKE PT TO HAVE BIPAP TO DISCHARGE HOME. CM CALLED CHITRA AT [facility] [place], , DISCUSSED NEED FOR BIPAP; CHITRA ASKED FOR CLINICAL DOCUMENTS TO SUPPLEMENT WHAT SHE HAS RECEIVED FROM PRIMARY CARE DOCTOR. CM FAXED CLINICAL DOCUMENTS TO [facility] AT [phone]. [facility] TO ARRANGE HOME BIPAP FOR DISCHARGE. CM TO FOLLOW AND ASSIST NEEDED. Rip Etienne, CASE MANAGEMENT
[2016-12-12 17:13] LABS: INR 1.16 (0.85-1.17); PROTIME 14.6 SECONDS (11.6-15.0)
--- NOTE | 2016-12-12 17:37 | NUR ---
Dialysis Coordinator: [facility] Mon/Sat/Fri am shift. OZZIE BENSON.
[2016-12-12 17:50] VITALS: BP 92/64
--- NOTE | 2016-12-12 18:15 | NUR ---
PT CVL IS STILL LEAKING AND DEFINITELY SEEPING FROM INSERTION SITE. DR GARCIA SAID EARLIER THAT THE SITE DID NOT LOOK INFECTED BUT CONSULT DR BOX IF PROBLEM CONTINUES. HAD 3 OTHER RNS LOOK AT CVL ALL ARE AGREEABLE THAT THE SITE LOOKS INFECTED. CONSULTED DR BOX
--- NOTE | 2016-12-12 19:45 | NUR ---
PT IS RESTING IN BED WITH EYES OPEN. ALERT TO SELF. PT STATES HE HAS NO ENERGY AT ALL. BP IS 78/36 AND DIFFICULTY TO HEAR. DOING A UPDRAFT TX AT THIS TIME. RESP TECH ENCOURAGING PT TO PUT ON HIS BIPAP, BUT PT REFUSING, STATING HE WANTS TO WATCH TV A WHILE LONGER. O2 IS ON @ 3LPM PER NC. DRESSING TO RIGHT UPPER ARM NOTED TO BE OFF. DRESSING CHANGED AT THIS TIME PER ORDERS. IV IS NOT INFUSING. LEFT CHEST HEMISPLIT REPORTED TO BE POSSIBLY INFECTED. AWAITING DR BOX TO COME SEE PT. SR'S ARE UP X 3 IN BED. CALL LIGHT AND BEDSIDE TABLE ARE WITHIN EASY REACH.
[2016-12-12 20:00] VITALS: BP 78/56
--- NOTE | 2016-12-12 21:41 | NUR ---
PT NOTED LAYING IN BED WITH BIPAP OFF. REFUSING TO PUT IT BACK ON. NASAL CANNULA PLACED ON PT AT THIS TIME. UNABLE TO GIVE IV ABX DUE TO LACK OF ACCESS.
--- NOTE | 2016-12-12 23:49 | NUR ---
PT IS RESTING QUIETLY IN BED WITH EYES CLOSED. NO ACUTE DISTRESS NOTED.
[2016-12-13 01:25] VITALS: BP 107/36
--- NOTE | 2016-12-13 02:37 | NUR ---
PT RESTING IN BED WITH EYES CLOSED. CPAP ON. NO ACUTE DISTRESS NOTED.
--- NOTE | 2016-12-13 03:58 | NUR ---
BUSINESS INTEGRATION ANALYST AT BEDSIDE TO OBTAIN VITALS, CALL LIGHT IN REACH. WILL CONTINUE WITH PLAN OF CARE.
[2016-12-13 04:20] VITALS: BP 82/42
--- NOTE | 2016-12-13 05:18 | NUR ---
PT RESTING IN BED WITH EYES OPEN. REQUESTING TO BE TURNED AND REPOSTITIONED FREQUENTLY. NO OTHER NEEDS VOICED.
[2016-12-13 05:59] LABS: INR 1.28 (0.85-1.17); PROTIME 15.9 SECONDS (11.6-15.0)
[2016-12-13 06:14] LABS: PHOSPHOROUS 5.9 mg/dL (2.5-4.9); VANCOMYCIN - RANDOM 18.4 ug/mL (10.0-20.0)
--- NOTE | 2016-12-13 07:20 | NUR ---
PT LAYING FLAT IN BED SLEEPING NO S/S DISTRESS NOTED RR EVEN AND UNLABORED WILL CONT TO MONITOR
[2016-12-13 08:58] VITALS: BP 130/40
--- NOTE | 2016-12-13 09:45 | NUR ---
TALKED WITH DR BOX. SAID TO DC CVL FROM LEFT GROIN. ORDERS PLACED FOR DAILY DRESSINGS TO TREAT WOUND. SAID HE WAS OK WITH STOPPING D10 SINCE PT SUGAR HAS NOT DROPPED FROM NOT BEING ON THE DRIP SINCE LAST NIGHT AND USING THE HEMOSPLIT FOR IV ABX IF NEEDED. PAGED FABIAN WITH RENAL TO ASK HER IF OK TO USE HEMOSPLIT FOR IV ACCESS AND DC D10
--- NOTE | 2016-12-13 10:31 | NUR ---
CHANGED DRESSING TO R FA PER ORDER. SIGNED AND DATED. REMOVED CVL FROM LEFT GROIN ORDERED CATH TIP INTACT. HELD PRESSURE FOR 5 MINUTES. NO BLEEDING NOTED. CLEANSED WITH HIBICLENS AND APPLIED BACTROBAN OINTMENT ORDERED. COVERED WITH 4X4 AND TAPE. WILL CONT TO MONITOR PT
--- NOTE | 2016-12-13 10:55 | NUR ---
Nutrition follow-up: Diet: Renal with Nepro TID PO intake very poor due to pt has had nausea; zofran started Labs reviewed Wt: 483# Pt will need nutrition support started if po intake does not improve within [address] hours. RDN following.
--- NOTE | 2016-12-13 10:59 | NUR ---
STILL HAVENT HEARD FROM FABIAN RENAL REMITTANCE CLERK. SEVERAL OTHER NURSES HAVE PAGED ALSO.
--- NOTE | 2016-12-13 11:16 | NUR ---
FABIAN RENAL CUSTOMER ACCOUNT EXECUTIVE PAGED AGAIN.
--- NOTE | 2016-12-13 11:31 | NUR ---
TALKED WITH DR GARCIA GAVE OK TO GIVE IV ABX THROUGH HEMOSPLIT PORT. SAID TO ALWAYS BE STERILE AND HEP LOCK AFTER ABX FINISHED.
[2016-12-13 12:50] VITALS: BP 112/40
[2016-12-13 16:53] VITALS: BP 97/35
--- NOTE | 2016-12-13 17:57 | NUR ---
PT SITTING UP IN BED AT BEDSIDE DENIES NEEDS
--- NOTE | 2016-12-13 19:35 | NUR ---
Received patient in bed, resting quietly. Denies pain or discomfort at this time. Right arm dressing C/D/I. Oxygen on @4l/min, Left chest Hemesplit insitu. No fluids infusing at this time.
[2016-12-13 21:16] VITALS: BP 109/34
--- NOTE | 2016-12-13 22:15 | NUR ---
Dressing changed to right upper arm, Dakin's solution used to moisten gauze and pack tunnel where fistula had been removed. Wet to dry dressing applied.
--- NOTE | 2016-12-13 22:42 | NUR ---
Given Tylenol 650mg po PRN on request for right arm pain, will monitor for effectiveness.
--- NOTE | 2016-12-13 23:40 | NUR ---
Sleeping at this time, PRN Tylenol deemed effective. Respirations unlabored, no signs of distress.
[2016-12-14] VITALS: BP 103/30
--- NOTE | 2016-12-14 02:23 | NUR ---
Resting quietly at this time, respirations easy and regular.
[2016-12-14 04:35] VITALS: BP 111/34
--- NOTE | 2016-12-14 05:01 | NUR ---
Given Tylenol 650mg po PRN on request for back pain, will monitor for effectiveness.
[2016-12-14 05:46] LABS: PHOSPHOROUS 6.6 mg/dL (2.5-4.9); VANCOMYCIN - RANDOM 16.3 ug/mL (10.0-20.0)
--- NOTE | 2016-12-14 07:43 | NUR ---
PT LAYING FLAT IN BED SLEEPING NO S/S DISTRESS NOTED RR EVEN AND UNLABORED WILL CONT TOMONITOR
[2016-12-14 08:37] LABS: ANION GAP 14.7 mmol/L (8-16); CALCIUM 9.4 mg/dL (8.5-10.1); CARBON DIOXIDE 28.1 mmol/L (21.0-32.0); CREATININE - SERUM 9.7 mg/dL (0.6-1.3); POTASSIUM - SERUM 3.8 mmol/L (3.5-5.1)
[2016-12-14 08:46] LABS: INR 1.81 (0.85-1.17); PROTIME 20.9 SECONDS (11.6-15.0)
[2016-12-14 08:51] LABS: BASOPHILS 0.4 % (0-2); EOSINOPHILS 4.5 % (0-7); HEMATOCRIT 31.5 % (42.0-54.0); HEMOGLOBIN 9.5 g/dL (13.5-17.5); IMMATURE GRANULOCYTES 1.9 % (0-5); LYMPHOCYTES 13.9 % (15-50); MCH 31.9 pg (26.0-34.0); MCHC 30.2 g/dL (31.0-37.0); MCV 105.7 fL (80.0-100.0); MEAN PLATELET VOLUME 9.9 fL (7.4-10.4); MONOCYTES 14.5 % (2-11); NEUTROPHILS 64.8 % (40-80); RBC 2.98 10x6/uL (4.20-6.10); RDW 15.3 % (11.5-14.5); WBC 7.5 10x3/uL (4.8-10.8)
[2016-12-14 08:53] LABS: PLATELET COUNT 134 10x3/uL (130-400)
[2016-12-14 09:33] VITALS: BP 120/36
[2016-12-14] MEDS ORDERED: MIDODRINE HCL10 MG PO (12:36)
[2016-12-14] MEDS ORDERED: COUMADIN5 MG PO (12:36)
[2016-12-14] MEDS ORDERED: REQUIP0.5 MG PO (12:37)
--- NOTE | 2016-12-14 15:19 | NUR ---
Patient Name: CELSA HARRIS Encounter No: [id number] : 1970 Primary Insurance: MEDICARE A & B Anticipated DC Date: 12-14-2016 Planned Disposition: Home DCP follow-up note: CM CALLED AND SPOKE TO CHRIS AT [facility] [place], , DISCUSSED NEED FOR BIPAP PT IS DISCHARGING HOME, SHE WILL CHECK WITH CHITRA AND GET BACK WITH CM. CM REQUESTED EXPEDITED SERVICE IF POSSIBLE FOR HOME DELIVERY TODAY AFTER PT'S DISCHARGE HOME. CM RECEIVED CALL FROM [facility], , WHO REPORTS THEY ARE TRYING TO GET NEEDED PAPERWORK FROM THE DOCTOR AND WILL TRY TO ARRANGE HOME DELIVERY OF BIPAP TODAY OR SOON POSSIBLE. CM NOTIFIED MEDIA DIRECTOR NURSE. CM MET WITH PT IN ROOM TO DISCUSS DISCHARGE PLANNING AND NEEDS, DISCUSSED AVAILABILITY OF HOME HEALTH, REHAB SERVICES AND MEDICAL EQUIPMENT. 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 CM INFORMED PT ABOUT PROGRESS ON BIPAP, PT THANKED CM AND WILL FOLLOW UP WITH [facility] [place]. PT REPORTS HIS WILL BE HERE AT 4:15PM AND TO PLEASE HAVE HIS DISCHARGE READY TO GO. PT ASKED CM TO REQUEST TYLENOL FOR HIM FROM THE NURSE. IMPORTANT MESSAGE FROM [employer]IC[employer] PROVIDED AND EXPLAINED. MEDIA DIRECTOR AND BEDSIDE NURSE NOTIFIED. Rip Etienne, CASE MANAGEMENT
--- NOTE | 2016-12-14 16:10 | NUR ---
WENT OVER DC PAPERWORK WITH PT PT VERBALIZES UNDERSTANDING. PACKED UP PT BELONGINGS. PT ON HER WAY TO LEAD SUSTAINABILITY SPECIALIST PT
--- NOTE | 2016-12-14 17:49 | NUR ---
PT LAYING FLAT IN BED STILL WAITING ON TO GET HERE. DENIES NEEDS
--- NOTE | 2016-12-14 18:29 | NUR ---
PT WHEELED OUT BY AND SON.
== END 2016-12-14 18:29 | disposition home or self-care (01) | DRG 252 ==
LOC: D.ER 19:49 → D.ICU 22:15 → D.M2 22:15 → D.ICU 12-02 01:10 → D.M2 12-10 17:59
PROVIDERS: Emergency Medicine; Internal Medicine Nephrology; Internal Medicine Pulmonary Disease; Surgery; ADMIT Internal Medicine
PROC: 03C80ZZ Extirpation of Matter from Left Brachial Artery, Open Approach (ICD-10-PCS; 2016-12-02)
PROC: 0BH17EZ Insertion of Endotracheal Airway into Trachea, Via Natural or Artificial Opening (ICD-10-PCS; 2016-12-02)
PROC: 5A1945Z Respiratory Ventilation, 24-96 Consecutive Hours (ICD-10-PCS; 2016-12-02)
PROC: 06HN33Z Insertion of Infusion Device into Left Femoral Vein, Percutaneous Approach (ICD-10-PCS; 2016-12-02)
PROC: B51C1ZA Fluoroscopy of Left Lower Extremity Veins using Low Osmolar Contrast, Guidance (ICD-10-PCS; 2016-12-02)
PROC: 03L70ZZ Occlusion of Right Brachial Artery, Open Approach (ICD-10-PCS; 2016-12-02 11:10)
PROC: 5A1D60Z (ICD-10-PCS; principal; 2016-12-03)
PROC: 5A09557 Assistance with Respiratory Ventilation, Greater than 96 Consecutive Hours, Continuous Positive Airway Pressure (ICD-10-PCS; 2016-12-04)
DX: T82.7XXA Infection and inflammatory reaction due to other cardiac and vascular devices, implants and grafts, initial encounter (principal); A41.9 Sepsis, unspecified organism; R65.21 Severe sepsis with septic shock; J96.02 Acute respiratory failure with hypercapnia; J96.01 Acute respiratory failure with hypoxia; N18.6 End stage renal disease; J69.0 Pneumonitis due to inhalation of food and vomit; J15.1 Pneumonia due to Pseudomonas; I12.0 Hypertensive chronic kidney disease with stage 5 chronic kidney disease or end stage renal disease; E66.2 Morbid (severe) obesity with alveolar hypoventilation; D62 Acute posthemorrhagic anemia; D68.9 Coagulation defect, unspecified; T82.838A Hemorrhage due to vascular prosthetic devices, implants and grafts, initial encounter; E11.22 Type 2 diabetes mellitus with diabetic chronic kidney disease; Z99.2 Dependence on renal dialysis; I25.10 Atherosclerotic heart disease of native coronary artery without angina pectoris; E78.5 Hyperlipidemia, unspecified; Z86.73 Personal history of transient ischemic attack (TIA), and cerebral infarction without residual deficits; E87.5 Hyperkalemia; I73.9 Peripheral vascular disease, unspecified; E86.1 Hypovolemia; Y83.8 Other surgical procedures as the cause of abnormal reaction of the patient, or of later complication, without mention of misadventure at the time of the procedure; Z78.1 Physical restraint status; Z68.39 Body mass index [BMI] 39.0-39.9, adult; D69.6 Thrombocytopenia, unspecified; D63.1 Anemia in chronic kidney disease

== ENCOUNTER 2016-12-15 23:01 | Inpatient (IN) | payer MEDICARE ==
[~2016-12-15] VITALS: Ht 171.4 cm; Wt 141.4 kg
[~2016-12-15 23:01] MED LIST changes: +BUPRENORPHIN-N1 EACH SL
[2016-12-16] VITALS (40 sets, daily range): BP systolic 52–130; BP diastolic 32–90; BMI 37.2
--- NOTE | 2016-12-16 01:45 | NUR ---
PT ARRIVES FROM [facility] VIA EMS, ASSISTED INTO ROOM. UPON ASSESSMENT PT WITH SWOLLEN AND ERECT PENIS. TIP OF PENIS COVERED WITH FORESKIN AND BLACKENED. PT SCREAMING IN PAIN STATES "IT HURTS" REPEATEDLY. CALL TO AARON HERNANDEZ PROCEDURAL NURSE.
--- NOTE | 2016-12-16 02:00 | NUR ---
NEW ORDERS RECEIVED. STAT LABS ORDERED. PT TO BE MEDICATED WITH DILAUDID FOR PAIN. PT UPDATED ON POC. VERBALIZED UNDERSTANDING.
[2016-12-16 02:11] LABS: BASOPHILS 0.3 % (0-2); HEMATOCRIT 30.7 % (42.0-54.0); HEMOGLOBIN 9.3 g/dL (13.5-17.5); IMMATURE GRANULOCYTES 0.7 % (0-5); LYMPHOCYTES 8.5 % (15-50); MCH 31.4 pg (26.0-34.0); MCHC 30.3 g/dL (31.0-37.0); MEAN PLATELET VOLUME 9.3 fL (7.4-10.4); MONOCYTES 9.4 % (2-11); NEUTROPHILS 79.1 % (40-80); PLATELET COUNT 115 10x3/uL (130-400); RBC 2.96 10x6/uL (4.20-6.10); RDW 14.7 % (11.5-14.5)
[2016-12-16 02:14] LABS: MCV 103.7 fL (80.0-100.0)
[2016-12-16 02:22] LABS: APTT 74.7 SECONDS (22.8-39.4)
[2016-12-16 02:26] LABS: ALBUMIN 2.1 g/dL (3.4-5.0); ANION GAP 11.6 mmol/L (8-16); BILIRUBIN - TOTAL 0.42 mg/dL (0.2-1.3); CALCIUM 9.4 mg/dL (8.5-10.1); CARBON DIOXIDE 30.2 mmol/L (21.0-32.0); CREATININE - SERUM 8.6 mg/dL (0.6-1.3); POTASSIUM - SERUM 3.8 mmol/L (3.5-5.1)
[2016-12-16 02:28] LABS: INR 3.98 (0.85-1.17); PROTIME 39.4 SECONDS (11.6-15.0)
--- NOTE | 2016-12-16 02:41 | NUR ---
CALL TO CHRIS BACH APN INSULATION BOARD HEAD SAW OPERATOR TO NOTIFY OF LABS.
--- NOTE | 2016-12-16 03:10 | NUR ---
SPOKE WITH DR MONTESINOS, NOTIFIED OF PT'S ARRIVAL AND RECENT LAB RESULTS. NOTIFIED OF APPEARANCE OF PT'S PENIS UPON ARRIVAL. ALSO TOLD OF PLACING ICE PACK ON PT'S PENIS. NO NEW ORDERS. WILL CONT TO MONITOR.
--- NOTE | 2016-12-16 06:44 | NUR ---
PT'S PENILE SWELLING DECREASED AND COLORING OF PENIS LIGHTENING. REPORT GIVEN TO ONCOMING NURSE
--- NOTE | 2016-12-16 07:41 | NUR ---
AM ROUNDING DONE WITH ENVIRONMENTAL PROTECTION OFFICER NURSE. ROLLED PATIENT TO SIDE, HEALING RASH SEEN TO UPPER AND LOWER BACK. STAGE 2 SEEN TO COCCYX AREA. RIGHT AVF TO UPPER ARM WITH DRY DRESSING. LEFT AC SALINE LOCK. ON 4L PER NC. LEFT GROIN DRESSING, DRY AND INTACT, NO DATE. NPO AT PRESENT TIME UNTIL SEEN PER UROLOGIST. LEFT CHEST HEMISPLIT SEEN WITH DRESSING. ICE PACK UNDER AND OVER SWOLLEN, DISCOLORED PENIS. WILL CPOC.
--- NOTE | 2016-12-16 09:16 | NUR ---
DR MONTESINOS HERE TO SEE PATIENT.
--- NOTE | 2016-12-16 09:33 | NUR ---
DR SAHU HERE TO SEE PATIENT. ANESTHSIA ON PHONE ASKING QUESTIONS R/T PRE-OP AND EKG. I TOLD THE ANESTHSIA THAT I WOULD DO THE EKG IF NOT ALREADY DONE.
--- NOTE | 2016-12-16 09:50 | NUR ---
EKG DONE ORDERED.
--- NOTE | 2016-12-16 10:12 | NUR ---
PRE-OP MEDS GIVEN. I CALLED THE TO LET HER KNOW THAT HE WAS HEADED TO THE OR AT THIS TIME. I ASKED THAT SHE SLOW DOWN SO THAT NOTHING HAPPENS TO HIM. TO THE OR VIA BED.
--- NOTE | 2016-12-16 10:24 | NUR ---
REYNALDO FROM LAB TO CALL R/T 2 UNITS OF FFP. I ASKED THAT HE CALL THE OR AND LET THEM KNOW THEY ARE READY.
--- NOTE | 2016-12-16 11:17 | NUR ---
1115- IS HERE, I DIRECTED HER TO THE RADIOLOGY WAITING ROOM.
--- NOTE | 2016-12-16 11:20 | NUR ---
1040: SCD WHERE NOT PLACED ON PT DUE TO HISTORY OF DVT AND PE.
--- NOTE | 2016-12-16 14:00 | NUR ---
REC'D FROM OR AND HOOKED UP TO CM. CM=NS RATE OF 75. NO ECTOPY SEEN. ON VENT. ETT #8 PROP SECURED AT 23 CM AT LIP. CHEST XRAY BEING DONE TO VERIFY LEFT SCTL LINE PLACEMENT. HAS LEFT SCTL AND LEFT SC HEMISPLIT. DRSG CD&I X2. BIOPATCHES ARE IN PLACE. STERILE CAPS ARE IN PLACE. RIGHT UPPER ARM INCISION. DRSG CD&I. WOUND VAC AT LEFT UPPER THIGH WOUND AND PENECTOMY SURGERY SITE. SETTINGS ARE 125 mmHg, MEDIUM, CONTINUOS. ROBLES CATH INSERTED INTO URETHRA TO GRAVITY WITH SCANT PINK TINGED URINE IN STORAGE. PPP. VELASCO. FOLLOWS COMMANDS. SEE FLOW SHEET FOR ADDITIONAL ASSESSMENT. CPOC.
--- NOTE | 2016-12-16 14:15 | NUR ---
HEELS ARE BRIDGED.
[2016-12-16 14:36] LABS: INR 2.44 (0.85-1.17); PROTIME 26.6 SECONDS (11.6-15.0)
--- NOTE | 2016-12-16 15:16 | NUR ---
CENTRAL LINE PLACEMENT VERIFIED WITH RADIOLOGY TO BE IN CORRECT POSITION.
--- NOTE | 2016-12-16 15:22 | NUR ---
DR. MORALES AT BED TALKING WITH FAMILY.
--- NOTE | 2016-12-16 16:03 | NUR ---
FAMILY AT BEDSIDE.
--- NOTE | 2016-12-16 16:12 | NUR ---
A LADY CALLED IDENTIFING HERSELF KALEB STATES SHE WAS CELSA HARRIS'S SHE WAS WANTING AN ANTIBIOTIC FOR HER SHE STATED HE WAS DISCHARGED FROM [facility] Y[facility]ERDAY (12/14/16) SHE STATED HER HAD A RED RASH LIKE YEAST ON HIS PENIS ALSO STATED THAT THERE WAS PUS COMING OUT OF THE PENIS SHE COULDN'T GET THE FORESKIN BACK IT WOULD START TO BLEED. SHE SAID SHE TOLD ONE OF THE NURSES THAT TOOK CARE OF HIM WHILE HRE WAS HOSPITALIZED THAT HE NEEDED AN ANTIBIOTIC BUT THEY DID NOT GET AN ANTIBIOTIC FOR HIM. SHE STATED THIS WAS WHAT HAD BEEN DONE FOR HIM THE LAST TIME AND HAD WORKED I EXPLAINED SHE WOULD NEED TO TAKE HIM TO AN EMERGENCY DEPT TO HAVE IT CHECKED OUT THE STATED SHE COULD NOT DRIVE 100 MILES TO TAKE HIM TO THE EMERGENCY DEPT AND WAS WANTING RENAL CALLED I TOOK HER NUMBER AND TOLD HER I WOULD RETURN A CALL TO HER THEN HUNG UP I [facility]IS STALEY APN WITH RENAL PAGE WAS RETURNED EXPLAINED SITUATION TO CHRIS STALEY APN SHE AGREED PT NEEDED TO BE SEEN IN AN EMERGENCY DEPT RETURNED CALL TO MRS. HARRIS AND TOLD HER MR. HARRIS NEEDED TO BE SEEN IN EMERGENCY DEPT THE CLOSEST ONE WOULD BE FINE MRS. HARRIS SAID THANK YOU AND HUNG UP
--- NOTE | 2016-12-16 18:00 | NUR ---
FAMILY AT BEDSIDE. UPDATED.
--- NOTE | 2016-12-16 19:30 | NUR ---
REPORT RECIEVED. ASSESSMENT COMPLETE PER FLOW SHEET. VSS. OGT ADM PATENT VIA AUSCULTATION. WOUND VAC ALARMING DRSG REAPPLIED. NO FURTHER NEW FINDNIGS. FAMILY AT BEDSIDE. GIVEN UDPATE.
--- NOTE | 2016-12-16 21:08 | NUR ---
FAMILY AT BEDSIDE. GIVEN UPDATE
--- NOTE | 2016-12-16 22:50 | NUR ---
PT TO CT WITHOUT DIFFICULTY. VSS. NO NEW CHANGES WILL CONTINUE TO MONITOR
--- NOTE | 2016-12-16 23:26 | NUR ---
REASSESSMENT COMPLET EPER FLOW SHEET. VSS. NO NEW CHAGNES. WILLC ONTINUE TO MONITOR
[2016-12-17] VITALS (93 sets, daily range): BP systolic 71–115; BP diastolic 35–84; Ht 171.4 cm; Wt 141.4 kg
--- NOTE | 2016-12-17 01:00 | NUR ---
COMPLETE BB LINEN CHANGE ADM.
--- NOTE | 2016-12-17 02:59 | NUR ---
REASSESSMENT COMPLET EPER FLOW SHEET. VSS. NO NEW CHANGES. WILL CONTINUE TO MONITOR
--- NOTE | 2016-12-17 04:30 | NUR ---
RADIOLOGY AT BEDSIDE.
[2016-12-17 05:44] LABS: ALBUMIN 2.1 g/dL (3.4-5.0); BILIRUBIN - TOTAL 0.5 mg/dL (0.2-1.3); CALCIUM 8.8 mg/dL (8.5-10.1); CREATININE - SERUM 9.4 mg/dL (0.6-1.3); MAGNESIUM - SERUM 2.2 mg/dL (1.8-2.4); PROTEIN - SERUM 5.2 g/dL (6.4-8.2)
[2016-12-17 05:48] LABS: ANION GAP 22.8 mmol/L (8-16); CARBON DIOXIDE 21.8 mmol/L (21.0-32.0); POTASSIUM - SERUM 4.6 mmol/L (3.5-5.1)
--- NOTE | 2016-12-17 06:07 | NUR ---
FAMILY AT BEDSIDE. GIVEN UPDATE.
--- NOTE | 2016-12-17 06:53 | OP ---
PATIENT NAME: CELSA HARRIS MEDICAL RECORD: [id number] :66 LOCATION:[facility] D.2302 ADMISSION DATE:12/16/16 SURGEON: FERNANDO MONTESINOS MD DATE OF OPERATION: 12/16/2016 CO-SURGEON: Fernando Montesinos MD and Edmundo Payan MD ANESTHESIA: General anesthesia, Luis Armando Wyatt CRNA. 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 Also, possible gangrene of the medial thigh. Diabetes mellitus type 2, end-stage renal failure on hemodialysis. PROCEDURE: Wide excision and debridement, complete penectomy, complete scrotectomy, placement of the right testicle into a right medial thigh pouch, placement of the left testicle into a suprapubic pouch. Placement of a wound VAC device. FINDINGS: Gangrene of the penis corpus cavernosum almost to the level of the suspensory ligament of the penis. 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 Necrosis of the dartos fascia and the scrotal skin. Necrosis of the suprapubic fat pad adjacent to the penile base. The testicles are viable. Also, a dry necrosis of the left medial thigh skin at the site of previous central line insertion. SPECIMENS: Scrotal skin sent as left and right hemiscrotum, dartos fascia, right cord lipoma, penis, skin of the left medial thigh and also culture swabs from the penile base and also from the left medial thigh. BLOOD LOSS: Minimal. CLINICAL HISTORY: This is a 46-year-old male with a very complicated medical history. It starts with diabetes mellitus type 2 for about 8 years. He has complications from the diabetes of peripheral neuropathy as well as end-stage renal failure, for which he is on hemodialysis. He has hypertension, previous stroke and possible TN in the past. He has also had deep venous thrombosis in the left leg with pulmonary embolism. He is on Coumadin. His INR today is 4.0. His hemoglobin was also somewhat low at 9.3. He is a patient of Dr. Payan. The patient's AV fistula blew out recently. Dr. Payan ligated the AV fistula and he now has a port through which he gets hemodialysis. He was in our hospital just this past week. He was discharged on Saturday. On Saturday evening, the patient's , who is a registered nurse, called asking for antibiotics for his penile infection. She was informed that because the patient had been discharged home, she would have to see her physician or ER to obtain an antibiotic prescription. She was advised to go the Emergency Room. They live in [place], [place]. They went to the local Emergency Room. The ER physician recognized that something was abnormal and requested that the patient be transferred back to [facility]. I was notified that he was coming by the nursing management supervisor merchandising execution associate. However, he did not arrive here until after 3 a.m. At that time, I was told that the patient merely had a phimosis, so therefore, I was not in a hurry to see him. I told him I would see him in the morning. I did arrive about 9:00 to see the OPERATIVE REPORT [id number] CELSA HARRIS patient. Immediately, I recognized that he had black necrosis of the penile skin up to the level of the proximal two-thirds of the shaft. He was in an extreme amount of pain. Because of the foreskin being necrotic, I could not pull the foreskin back to see if the penis was also involved. He has a previous central line insertion site in the left thigh, which looked also infected and a bit dusky. He was extremely tender in the suprapubic area when I examined him. However, the perineum looked fine and he had been having bowel movements at home. The abdominal examination was benign. He was immediately informed that he had Gladys's gangrene. If we do not treat this, it will be a fatal outcome for him. Even if we do treat this given his medical issues, he may have medical complications in the ICU afterwards, and he may still . He was given clindamycin 600 mg, gentamicin 80 mg and Flagyl merchandising execution associate or in the OR. I did inform Dr. Payan of my findings also so that he could accompany me to do the surgery on the patient and we then proceeded to the OR. Procedure: The patient is in supine position. He was given induction of general anesthesia. We did not insert a Rodríguez catheter as we did not know how much of the penis was going to be involved. Photographs of the procedure were taken periodically throughout the surgery. Initially, I marked out an incision about 5 mm proximal to the line of obvious necrosis on the penile shaft. We used a #10 blade to make our incisions around the base. It was obvious going through the dartos fascia, that the penis was black and there were thrombosed vessels everywhere, then we continued to dissect the penis proximally. We identified the areas of necrosis in the dartos fascia of the scrotum also. We had to continue dissecting until we found what appeared to be viable tissue. Finally, we had completely removed the entire median raphe of the scrotum and the left testicle was free. The testicle itself appeared normal and the cord was completely viable. However, the surrounding skin did not appear healthy at all. We completely freed the left testicle and its cord. The scrotal skin was continued to get dusky. Finally near the line of demarcation between the viable and the dusky skin, cutting along the normal skin, we cut off the left hemiscrotum. On the right side, we continued to dissect the dartos fascia until we came across a large cord lipoma. The cord lipoma seems to have absorbed a lot of the necrosis. We dissected the right cord lipoma free from the right testicle and cord. This lipoma was cut off and sent to pathology separately. Again, the scrotal skin was dusky after we had done our dissection and therefore, we cut off the right hemiscrotum at the level of the healthy skin. The right testicle itself was healthy. We then focused our attention on dissecting further in the pubic area. We were concerned that perhaps the infection spread into the suprapubic skin and tissues because of his tenderness here. A diagonal incision was made along the left inguinal canal. The tissues are seen to be completely viable. However, the suprapubic fat adjacent to the penis was definitely necrotic. We dissected out the fat and removed it and it was sent separately to pathology. At this point, we were faced with what to do about the penis. The veins on the penis were completely thrombosed. The penis was consequently in a semi-hard erection all during this time. We continued to dissect our way down to the attachment of the penis to the pubic bone via the suspensory ligament. We also OPERATIVE REPORT [id number] CELSA HARRIS cut some of this attachment. The corpus cavernosum here seen to be pink and viable. This was proximal to the end of the thrombosed dorsal vein on the penis. The corpus spongiosum however, was still black going down to this level, but somewhat proximal to it, appeared to be a little bit pinker. We were not prepared at this time to go into his pelvis and do a radical prostatectomy as well as a possible cystectomy for this. Therefore, we placed a Satinsky clamp across the penis, at the base of the penis as far down as we could on to the pelvic diaphragm. About 1 cm distal to our Satinsky clamp, a #10 blade was used to amputate the penis. The penis was sent off to pathology. 2-0 Monocryl sutures were used in running fashion to close the corpus cavernosa to each other. This included the median septum. Any defects that we found were closed with 2-0 Monocryl sutures in a [id number]. For the urethra, I reapproximated the urethral mucosa to the corpus spongiosum tunica albuginea. 4-0 Monocryl sutures in simple interrupted fashion were used to do this. Once this was completed, we released the Satinsky clamp. No active bleeding was seen. A 16-Djiboutian Rodríguez catheter was inserted into the bladder and the balloon was inflated. This goes to straight drainage. I did consider putting in a perineal urethrostomy at this time as we already had the skin widely opened; however, since we do not know if any of the tissues will be viable at this time, we decided that it would not be mullen to perform a urethrostomy at this point. We will put a wound VAC on and we evaluated him and see what is viable and what is not viable in the near future. The last issue gwas what to do with the testicles. We made a thigh pocket in the right medial thigh and the right testicle was inserted into the thigh pocket. On the left side because we were going to excise some of the tissue from the left medial thigh, a pocket was made instead in suprapubic region and the testicle was put into this suprapubic pocket. At this point, some of the fat was reapproximated to each other using simple interrupted 2-0 Vicryls. The diagonal incision over the left groin was closed with lety. We then inserted the wound VAC packing material and left that. Dr. Payan then proceeded to dissect the left medial thigh and the tissue from that was sent to pathology separately. It seemed to be still viable and certainly the muscles are healthy and well vascularized. The wound VAC was also applied here. Dr. Payan will also be placing a central line on the patient. He has been intubated and ventilated. He will go directly to the intensive care unit. Because of the patient's INR was 4 to start with, we had given him 2 units of fresh frozen plasma at the start of the case. We also gave him 2 units of blood during the case. TRANSINT:[id number] Voice Confirmation ID: [id number] DOCUMENT ID: [id number] FERNANDO MONTESINOS MD at 0653 CC: [id number] DICTATION DATE: 12/16/16 1345 SHOVEL OPERATOR: 12/16/162011 ADM IN [facility] [address] [place] [address]
--- NOTE | 2016-12-17 07:15 | NUR ---
REPORT RECIEVED FROM DENTAL THERAPIST NURSE. SHIFT ASSESSMENT COMPLETE PER FLOWSHEET. REFER FOR DETAILS. WILL CONT TO ASSESS FOR CHANGES.
--- NOTE | 2016-12-17 09:00 | NUR ---
WOUND CARE NURSE CALLED. WOUND VAC ALARMING. READING THAT THERE IS A LEAK AND NOT PROVIDING APPROPRIATE SUCTION. WOUND CARE NURSE WAS ABLE TO DRAPE SOME AREAS AROUND SITE TO ACHIEVE NEGATIVE PRESSURE. WILL CONT TO ASSESS FOR CHANGE.
--- NOTE | 2016-12-17 09:15 | NUR ---
L DLSC CENTRAL LINE BLEEDING. PRESSURE HELD WITH NO RESPONSE. SAND BAG PLACED OVER SITE. WILL MONITOR.
--- NOTE | 2016-12-17 10:00 | NUR ---
SAND BAG REMOVED. BLEEDING STOPPED. WILL CONT TO ASSESS.
--- NOTE | 2016-12-17 11:00 | NUR ---
WOUND CARE NURSE CALLED AGAIN AFTER CONVERSATION WITH DR. ADAM. DR. ADAM CALLED IN REGARDS TO CONTINOUS ALARMING AND COMPLICATIONS HAD WITH WOUND VAC. STATED HE WANTED TO KEEP WOUND VAC IN PLACE AND DIDN'T WANT TO TRY OTHER METHODS OF DRESSING CHANGES. SONJA WOUND CARE NURSE COMPLETLEY CHANGE WHOLE WOUND VAC SET UP AND SUCTION SEAL WAS OBTAINED. SUCTIONING AT 125MMHG. WILL CONT TO ASSESS FOR CHANGES.
--- NOTE | 2016-12-17 11:11 | NUR ---
Wound care called by Primary RN d/t the wound vac alarming constantly. Noted perineal area had a few spots were drape had loosened. Reinforced drape and TRAC pad and neg pressure was again achieved. Wound care will continue monitoring.
--- NOTE | 2016-12-17 12:00 | NUR ---
AT BEDSIDE. UPDATE PROVIDED.
--- NOTE | 2016-12-17 13:26 | NUR ---
Wound care: Wound vac continues to alarm. Removed dressings from left upper thigh and perineal area and replaced with new dressings and drape. Negative pressure achieved. Will continue to monitor.
--- NOTE | 2016-12-17 13:57 | NUR ---
Mr. Caldwell had bedside hemodialysis today via his left chest Hemosplit from 1046 until 1346. Average blood flow was 400 mls/minute. Net fluid removed was 3000 mls. Required a little titration of levophed for b/p support. No other problems. Post vital signs were: B/P: 89/56, HR: 71, Temp: 97.8, Resps: 14.
--- NOTE | 2016-12-17 14:37 | NUR ---
* Is the patient Alert and Oriented? No 0 * How many steps to enter\exit or inside your home? Ramp 0 * PCP Dr. Hassan in [place], [place] 0 * Pharmacy [facility] 0 * Preadmission Environment Home with Family 0 * ADLs Partial Dependent 0 * Partial ADLs (Assistance needed) Ambulation Bathing Dressing Medication Management Toileting 0 * Equipment Wheelchair 0 * List name and contact numbers for known caregivers / representatives who currently or will assist patient after discharge: Spouse - Deepti [phone] * Community resources currently utilized Other 0 * Please name any agencies selected above. [facility] @ [phone] 0 * Can the patient safely return to the preadmission environment? Yes 0 * Has this patient been hospitalized within the prior 30 days at any hospital? Yes Patient Name: CELSA HARRIS Admission Status: Elective Accout number: [id number] Admission Date: 12-16-2016 : 1970 Admission Diagnosis: Attending: EDDIE Current LOS: 1 Primary Insurance: MEDICARE A & B Discharge Planning Comments: Patient DC'd from hospital 12/14 - home with spouse. Refused services at discharge. He was transferred from [place] ED. He is currently on vent post procedure. No family present. Assessment completed from previous chart. CM will follow & assist as needed. Chiller Hand: Nupur Wright
--- NOTE | 2016-12-17 15:00 | NUR ---
NO VISITORS AT THIS TIME. CALLED FOR UPDATE.
--- NOTE | 2016-12-17 16:00 | NUR ---
TURNED AND REPOSITIONED FOR COMFORT. ORAL CARE PROVIDED.
--- NOTE | 2016-12-17 18:15 | NUR ---
SAND BAG PLACED OVER LEFT CENTRAL LINE FOR BLEEDING. WILL MONITOR AND RELAY TO PIERCER RN.
--- NOTE | 2016-12-17 19:20 | NUR ---
REPORT RECIEVED. ASSESSMENT COMPLETE PER FLOW SHEET. VSS. REPOSITIONED ON R SIDE. ORAL ENDOTRACH CARE ADM.W ILL CONTINUE TO MONITOR
--- NOTE | 2016-12-17 21:30 | NUR ---
FAMILY AT BEDSIDE. GIVEN UPDATE. VSS. WILL CONTINUE TO MONITOR
--- NOTE | 2016-12-17 23:20 | NUR ---
REASSESSMETN COMPLETE PER FLOW SHEET. VSS. NO NEW CHANGES. WILLCONTINUE TO MONITOR
[2016-12-18] VITALS (89 sets, daily range): BP systolic 79–128; BP diastolic 7–87
--- NOTE | 2016-12-18 01:20 | NUR ---
VENT ALARMING. ORAL ENDOTRACH SUCTION ADM. REPOSITIONED UP IN BED. VSS.WILL CONTINUE TO MONITOR
--- NOTE | 2016-12-18 03:24 | NUR ---
REASSESSMENT COMPLETE PER FLOW SHEET VSS. NO NEW CHANGES. WILL CONTINUE TO MONITOR
[2016-12-18 04:23] LABS: BASOPHILS 0.3 % (0-2); EOSINOPHILS 1.9 % (0-7); HEMATOCRIT 30.5 % (42.0-54.0); HEMOGLOBIN 9.7 g/dL (13.5-17.5); IMMATURE GRANULOCYTES 1.3 % (0-5); LYMPHOCYTES 8.4 % (15-50); MCH 30.8 pg (26.0-34.0); MCHC 31.8 g/dL (31.0-37.0); MCV 96.8 fL (80.0-100.0); MEAN PLATELET VOLUME 9.1 fL (7.4-10.4); NEUTROPHILS 80.1 % (40-80); RBC 3.15 10x6/uL (4.20-6.10); RDW 19.1 % (11.5-14.5); WBC 12.3 10x3/uL (4.8-10.8)
[2016-12-18 04:24] LABS: PLATELET COUNT 145 10x3/uL (130-400)
[2016-12-18 04:43] LABS: ALBUMIN 1.8 g/dL (3.4-5.0); ANION GAP 17.8 mmol/L (8-16); BILIRUBIN - TOTAL 0.55 mg/dL (0.2-1.3); CARBON DIOXIDE 24.2 mmol/L (21.0-32.0); CREATININE - SERUM 6.5 mg/dL (0.6-1.3); PHOSPHOROUS 4.8 mg/dL (2.5-4.9); PROTEIN - SERUM 5.6 g/dL (6.4-8.2); VANCOMYCIN - RANDOM 23.8 ug/mL (10.0-20.0)
--- NOTE | 2016-12-18 07:00 | NUR ---
PT REPORT REC'D, PT CARE ASSUMED. PT SEDATED ON VENT, OPENS EYES TO PAIN AND GRIMACES FACE TO PAIN. LEFT CHEST/SHOULDER CVL WITH FLUIDS INFUSING, SEE FLOW SHEET, DRESSING CDI. LEFT SUBCLAVIAN HEMOSPLIT DRESSING CDI. LEFT UPPER THIGH WOUND VAC, WITH SCANT DRAIANGE,NO LEAK NOTED. SHIFT ASSESSMENT COMPLETED, SEE FLOW SHEET. ROOM FREE OF CLUTTER, BED ALARM ACTIVE. CALL LIGHT IN REACH, WILL CONTINUE TO MONITOR PT.
--- NOTE | 2016-12-18 08:15 | NUR ---
DR. BOX SPEAKING WITH PTS , ALL QUESTIONS ANSWERED.
--- NOTE | 2016-12-18 08:20 | NUR ---
PT TRANSFERRED TO SURGERY VIA BED, PTS INFORMED, PLANS FOR PTS TO "STAY IN ICU WAITING ROOM UNTIL HE(PT) COMES BACK FROM OR."
--- NOTE | 2016-12-18 09:40 | NUR ---
REC'D PT FROM OR, VSS, PT SEDATED ON VENT, WILL CONTINUE TO MONITOR PT.
--- NOTE | 2016-12-18 10:09 | NUR ---
PT AT THE BEDSIDE, ALL QUESTIONS ANSWERED,VSS, WILL CONTINUE TO MONITOR PT.
--- NOTE | 2016-12-18 10:18 | NUR ---
PAGED DR. PRABHAKAR PER DR. FULLER'S ORDERS TO START TPN, AWAITING CALL BACK.
--- NOTE | 2016-12-18 10:51 | NUR ---
DR. MORGAN AT THE BEDSIDE, VSS, WILL CONTINUE TO MONITOR PT.
--- NOTE | 2016-12-18 11:00 | NUR ---
REPOSITIONED PT, PROPPED WITH PILLOWS, VSS, REASSESSMENT COMPLETED, SEE FLOW SHEET. ROOM FREE OF CLUTTER, BED LOCKED IN LOWEST POSITION, CALL LIGHT IN REACH, BED ALARM ACTIVE, WILL CONTINUE TO MONITOR PT.
--- NOTE | 2016-12-18 12:30 | NUR ---
DR. MONTESINOS AT THE BEDSIDE SPEAKING WITH PTS , ALL QUESTIONS ANSWERED, VSS, WILL CONTINUE TO MONITOR PT.
--- NOTE | 2016-12-18 15:00 | NUR ---
REPOSITIONED PT, PROPPED WITH PILLOWS, VSS, REASSESSMENT COMPLETED, SEE FLOW SHEET. ROOM FREE OF CLUTTER, CALL LIGHT IN REACH, BED ALARM ACTIVE, BED LOCKED IN LOWEST POSITION, WILL CONTINUE TO MONITOR PT.
--- NOTE | 2016-12-18 17:00 | NUR ---
PLACED PT ON AIR OVERLAY MATTRESS, COMPLETE LINEN CHANGE, AND BED BATH COMPLETED, VSS, PT TOLERATED WELL, WILL CONTINUE TO MONITOR PT.
--- NOTE | 2016-12-18 18:21 | NUR ---
PT FAMILY AT THE BEDSIDE, ALL QUESTIONS ANSWERED, VSS, WILL CONTINUE TO MONITOR PT.
--- NOTE | 2016-12-18 19:20 | NUR ---
ASSESSMENT COMPLETED. RESTRAINTS REMOVED AND PT PERFORMED ROM. COMMMUNICATES BY NODDING HIS HEAD AND HAND GESTURES. PULLED UP IN BED AND POSITIONED WITH PILLOWS FOR COMFORT. DENIES NEEDS.
--- NOTE | 2016-12-18 21:20 | NUR ---
AWAKENS EASILY. FOLLOWS COMMANDS. NO VISITORS AT THIS TIME. VSS
[2016-12-19] VITALS (93 sets, daily range): BP systolic 62–125; BP diastolic 40–77
--- NOTE | 2016-12-19 01:15 | NUR ---
REPOSITIONED FOR COMFORT, ORAL CARE PROVIDED,
--- NOTE | 2016-12-19 03:20 | NUR ---
REASSESSMENT COMPLETE, NO CHANGES NOTED, PT RESTING COMFORTABLY AT THIS TIME, NO NEEDS NOTED, WILL CON'T TO MONITOR
[2016-12-19 04:26] LABS: BASOPHILS 0.5 % (0-2); EOSINOPHILS 5.5 % (0-7); HEMATOCRIT 28.1 % (42.0-54.0); HEMOGLOBIN 8.8 g/dL (13.5-17.5); IMMATURE GRANULOCYTES 0.8 % (0-5); LYMPHOCYTES 6.8 % (15-50); MCH 30.8 pg (26.0-34.0); MCHC 31.3 g/dL (31.0-37.0); MCV 98.3 fL (80.0-100.0); MEAN PLATELET VOLUME 9.2 fL (7.4-10.4); MONOCYTES 2.4 % (2-11); PLATELET COUNT 133 10x3/uL (130-400); RBC 2.86 10x6/uL (4.20-6.10); RDW 18.1 % (11.5-14.5); WBC 10.1 10x3/uL (4.8-10.8)
[2016-12-19 04:40] LABS: INR 1.86 (0.85-1.17); PROTIME 21.5 SECONDS (11.6-15.0)
[2016-12-19 04:46] LABS: ALBUMIN 2.2 g/dL (3.4-5.0); ANION GAP 12.9 mmol/L (8-16); BILIRUBIN - TOTAL 0.79 mg/dL (0.2-1.3); CALCIUM 9.2 mg/dL (8.5-10.1); CARBON DIOXIDE 26.4 mmol/L (21.0-32.0); CREATININE - SERUM 7.8 mg/dL (0.6-1.3); PHOSPHOROUS 5.3 mg/dL (2.5-4.9); POTASSIUM - SERUM 3.3 mmol/L (3.5-5.1); PROTEIN - SERUM 5.5 g/dL (6.4-8.2); VANCOMYCIN - RANDOM 20.9 ug/mL (10.0-20.0)
--- NOTE | 2016-12-19 05:23 | NUR ---
BS 126, NO INSULIN AT THIS TIME
--- NOTE | 2016-12-19 07:00 | NUR ---
SHIFT ASSESSMENT VIA FLOWSHEET, SEE FOR DETAILS.
--- NOTE | 2016-12-19 08:04 | NUR ---
BRYCE CARSON IN ROOM SETTING UP FOR HD.
--- NOTE | 2016-12-19 09:29 | NUR ---
Nutrition follow-up: Pt remains intubated, sedated; on pressors labs reviewed PPN, D10W, 4.25%AA, started per renal @ 40 ml/hr Lipids 250 ml 20% Q 48 hours PPN + lipids are providin kcal and 40 gm protein Recommend changing TPN formula to D25W, 4.25%AA @ 40 ml to increase kcal, protein intake. Also recommend starting TwoCal HN @ 20 ml/hr to see if pt will tolerate. RDN following.
--- NOTE | 2016-12-19 11:00 | NUR ---
REASSESSMENT VIA FLOWSHEET, SEE FOR DETAILS.
--- NOTE | 2016-12-19 11:45 | NUR ---
Mr. Caldwell had bedside hemodialysis today via his left chest Hemosplit from 830 until 113. Average blood flow was 400 mls/minute. Required a little titration of levophed fow b/p support. Net fluid removed was 4000 mls. Post vital signs were: B/P: 97/61, HR: 80, Temp: 97.2, Resps: 16.
--- NOTE | 2016-12-19 12:10 | NUR ---
AT BEDSIDE, UPDATED BY DR MORGAN.
--- NOTE | 2016-12-19 15:00 | NUR ---
REASSESSMENT VIA FLOWSHEET, SEE FOR DETAILS.
--- NOTE | 2016-12-19 15:15 | NUR ---
FAMILY AT BEDSIDE, HD IN PROGRESS.
--- NOTE | 2016-12-19 17:05 | NUR ---
VENT ALARMING, PT COUGHING. SUCTION AND ORAL CARE PROVIDED. PT REPOSITIONED. VSS. WOUND VAC IN PLACE, NO AIR LEAK.
--- NOTE | 2016-12-19 20:00 | NUR ---
PATIENT SHIFT ASSESSMENT COMPLETE. BED IN LOW POSITION. PATIENT RESTING COMFORTABLY AT THIS TIME.
--- NOTE | 2016-12-19 21:50 | NUR ---
PATIENT COMPLAINS OF PAIN. WENT TO LOOK ON EMAR FOR PAIN MED, AND WHEN RETURNED PATIENT WAS SLEEPING WITHOUT DISTRESS NOTED. CM SR AT 81, SPO2 97, RR 13, AND BP 101/68. WILL CONTINUE TO WATCH PATIENT FOR SIGNS OF PAIN OR IF PATIENT AWAKENS AGAIN.
[2016-12-20] VITALS (93 sets, daily range): BP systolic 81–117; BP diastolic 51–79
--- NOTE | 2016-12-20 00:39 | NUR ---
DECREASED LEVOPHED TO 16MCG/MIN. BP 109/72 (84).
--- NOTE | 2016-12-20 01:47 | NUR ---
BP IS 102/72(81) LEVOPHED DECREASED TO 15MCG/MIN. RT IN ROOM FOR TX. PATEINT RESTING QUIETLY AT THIS TIME.
--- NOTE | 2016-12-20 03:45 | NUR ---
DECREASED LEVOPHED TO 13MCG/MIN. PATIENT IS SLEEPING WELL AT THIS TIME. CALL LIGHT WITHIN REACH AND BED IN LOW POSITION.
--- NOTE | 2016-12-20 05:50 | NUR ---
DECREASED LEVOPHED TO 10MCG/MIN.
[2016-12-20 06:00] LABS: BASOPHILS 0.4 % (0-2); EOSINOPHILS 11.9 % (0-7); HEMATOCRIT 29.6 % (42.0-54.0); HEMOGLOBIN 9.2 g/dL (13.5-17.5); IMMATURE GRANULOCYTES 1.6 % (0-5); LYMPHOCYTES 7.3 % (15-50); MCH 30.7 pg (26.0-34.0); MCHC 31.1 g/dL (31.0-37.0); MCV 98.7 fL (80.0-100.0); MEAN PLATELET VOLUME 9.4 fL (7.4-10.4); MONOCYTES 7.3 % (2-11); NEUTROPHILS 71.5 % (40-80); PLATELET COUNT 153 10x3/uL (130-400); RDW 17.9 % (11.5-14.5); WBC 11.3 10x3/uL (4.8-10.8)
[2016-12-20 06:15] LABS: INR 1.51 (0.85-1.17); PROTIME 18.2 SECONDS (11.6-15.0)
[2016-12-20 06:38] LABS: ALBUMIN 2.2 g/dL (3.4-5.0); ANION GAP 14.5 mmol/L (8-16); BILIRUBIN - TOTAL 0.92 mg/dL (0.2-1.3); CALCIUM 9.7 mg/dL (8.5-10.1); CARBON DIOXIDE 25.1 mmol/L (21.0-32.0); MAGNESIUM - SERUM 2.2 mg/dL (1.8-2.4); POTASSIUM - SERUM 3.6 mmol/L (3.5-5.1); PROTEIN - SERUM 5.7 g/dL (6.4-8.2)
[2016-12-20 06:44] LABS: CREATININE - SERUM 5.8 mg/dL (0.6-1.3)
--- NOTE | 2016-12-20 06:48 | NUR ---
RT IN ROOM FOR TX. PATIENT IS RESTING QUIETLY. CM REVEALS SR. V/S WITHIN NORMAL LIMITS.
--- NOTE | 2016-12-20 07:30 | NUR ---
SHIFT ASSESSMENT VIA FLOWSHEET, SEE FOR DETAILS.
--- NOTE | 2016-12-20 08:50 | NUR ---
BIPAP REMOVED, PT PLACED ON 12L OXYMIZER. 97% SPO2.
--- NOTE | 2016-12-20 09:47 | NUR ---
Patient Name: CELSA HARRIS Encounter No: [id number] : 1970 Primary Insurance: MEDICARE A & B Anticipated DC Date: DCP follow-up note: CATHY RECEIVED CALL FROM CHITRA [facility] [place], , WHO REPORTS THEY ARE STILL TRYING TO GET PT QUALIFIED FOR BIPAP AT HOME; CHITRA COMMUNICATED WITH PT'S SPOUSE THAT PT NEEDED A NEW TITRATION STUDY AND PT'S DOCTOR IN [place] DID NOT ORDER THE CORRECT TEST. CHITRA REPORTS THAT WITH DIAGNOSIS OF COPD, THEY NEED A NEW TITRATION STUDY, AN OVERNIGHT PULSE OXIMETRY ON USUAL FI02 AND PRIOR TO INITIATION OF BIPAP, CHART DOCUMENTATION THAT CPAP HAS BEEN TRIED AND FAILED OR IS NOT EFFECTIVE AND ALSO THAT ABILIO IS NOT THE PRIMARY CAUSE OF PT'S RESPIRATORY FAILURE. CATHY REQEUSTED CHITRA FAX CM MEDICARE GUIDELINES SO THAT IT MAY BE PROVIDED TO THE DOCTOR FOR GUIDANCE. CATHY NOTIFIED JACK BUENROSTRO. Rip Etienne, CASE MANAGEMENT
--- NOTE | 2016-12-20 11:00 | NUR ---
REASSESSMENT VIA FLOWSHEET, SEE FOR DETAILS.
--- NOTE | 2016-12-20 11:15 | NUR ---
CARSON WITH WOUND CARE HERE TO CHANGE WOUND VAC DRESSING.
--- NOTE | 2016-12-20 12:14 | NUR ---
Wound vac dressing change: Left upper thigh: 9cm x 7.5cm x 0.7cm Wound bed is red and bleeds easily. Wound edge is maxwell/brown. No muscle, tendon or bone exposed. Small amount of bloody drainage. No odor. Penis/perineal area: 6cm x 3cm x 4.5cm. Wound bed is red. Small amount of bloody drainage without odor. Cleansed well and applied 2 pieces of black foam in wound of penis/perineal (one piece inside wound + one piece on outside for TRAC pad to rest) One piece on wound on left upper thigh. Secured with drape. Connected 2 TRAC pads with Y connector (one TRAC pad on thigh + one TRAC pad on penis). Negative pressure was achieved at -125mmhg. This is a painful dressing change for pt. He is intubated, restrained and medicated and he was trying to grab my hands to stop. Noted an intact blister on inside of right upper thigh. Will protect with bordered gauze if possible. Wound care will continue monitoring.
--- NOTE | 2016-12-20 13:46 | NUR ---
Dialysis Coordinator: [facility] Sat/Sat/Sat 1st shift. Medical records to unit. OZZIE BENSON.
--- NOTE | 2016-12-20 15:00 | NUR ---
REASSESSMENT VIA FLOWSHEET, SEE FOR DETAILS.
--- NOTE | 2016-12-20 17:10 | NUR ---
COMPLETE BED BATH AND LINEN CHANGE PROVIDED.
--- NOTE | 2016-12-20 19:20 | NUR ---
REPORT RECIEVED. ASSESSMENT COMPLETE PER FLOW SHEET. VSS. ORAL ENDOTRACH CARE ADM. WILLC ONTINUE TO MONITOR
--- NOTE | 2016-12-20 23:20 | NUR ---
REASSESSMENT COMPLETE PER FLOW SHEET. VSS. NO NEW CHANGES .WILL CONTINUE TO MONITOR
[2016-12-21] VITALS (96 sets, daily range): BP systolic 73–131; BP diastolic 40–95
--- NOTE | 2016-12-21 01:20 | NUR ---
COMPLETE BB LINEN CHANGE ADM. NO NEW CHANGES. WILL CONTINUE TO MONITOR
--- NOTE | 2016-12-21 03:14 | NUR ---
RADIOLOGY AT BEDSIDE
[2016-12-21 04:49] LABS: BASOPHILS 0.5 % (0-2); EOSINOPHILS 15.5 % (0-7); HEMATOCRIT 29.6 % (42.0-54.0); IMMATURE GRANULOCYTES 1.9 % (0-5); LYMPHOCYTES 6.5 % (15-50); MCH 30.2 pg (26.0-34.0); MCHC 30.4 g/dL (31.0-37.0); MCV 99.3 fL (80.0-100.0); MEAN PLATELET VOLUME 9.4 fL (7.4-10.4); NEUTROPHILS 67.6 % (40-80); PLATELET COUNT 158 10x3/uL (130-400); RBC 2.98 10x6/uL (4.20-6.10); RDW 17.5 % (11.5-14.5); WBC 12.3 10x3/uL (4.8-10.8)
[2016-12-21 04:58] LABS: INR 1.35 (0.85-1.17); PROTIME 16.6 SECONDS (11.6-15.0)
[2016-12-21 05:16] LABS: ALBUMIN 2.3 g/dL (3.4-5.0); ANION GAP 15.2 mmol/L (8-16); BILIRUBIN - TOTAL 0.94 mg/dL (0.2-1.3); CARBON DIOXIDE 24.5 mmol/L (21.0-32.0); CREATININE - SERUM 7.1 mg/dL (0.6-1.3); MAGNESIUM - SERUM 2.1 mg/dL (1.8-2.4); POTASSIUM - SERUM 3.7 mmol/L (3.5-5.1); PROTEIN - SERUM 5.7 g/dL (6.4-8.2); VANCOMYCIN - RANDOM 26.7 ug/mL (10.0-20.0)
--- NOTE | 2016-12-21 05:16 | NUR ---
REPOSITIONED ON R SIDE. VSS. NO NEW CHANGES. WILL CONTINUE TO MONITOR
--- NOTE | 2016-12-21 07:43 | NUR ---
DECREASED DIPRIVAN TO 20MCG/MIN. RT HERE AND STATED HE WOULD BE WEANING PATIENT FROM VENT. WILL CONTINUE TO MONITOR AND DECREASE DIPRIVAN.
--- NOTE | 2016-12-21 07:46 | NUR ---
DECREASED LEVOPHED TO 10MCG/MIN
--- NOTE | 2016-12-21 07:54 | NUR ---
DECREASED DIPRIVAN TO 15MCG/MIN. PATIENT AROUSES TO VERBAL STIMULI AND RETURNS QUICKLY TO SLEEP.
--- NOTE | 2016-12-21 08:18 | NUR ---
DECREASED DIPRIVAN TO 5MCG/MIN. PATIENT IS SLEEPING AROUSES TO VERBAL STIMULI.
--- NOTE | 2016-12-21 08:35 | NUR ---
KIANA BENSON'S AT THIS TIME. RT AWARE OF SEDATION IS COMPLETELY OFF.
--- NOTE | 2016-12-21 09:00 | NUR ---
RT PLACED PATIENT ON CPAP, AND PATIENT TOLERATING WELL AT THIS TIME.
--- NOTE | 2016-12-21 09:57 | NUR ---
PATIENT DOING WELL ON CPAP, AROUSES TO VERBAL STIMULI THEN RETURNS TO SLEEP QUICKLY.
--- NOTE | 2016-12-21 10:15 | NUR ---
Nutrition follow-up: Pt intubated, sedated. PPN, D10W,4.25%AA, continues to infuse @ 40 ml/hr Intralipids 20% 250 ml Q 48 hours Labs reviewed Wt: 294# PPN providin kcal 40 gm protein RDN following.
--- NOTE | 2016-12-21 11:29 | NUR ---
RT IN DOING TEST WITH PATIENT. PATIENT TOLERATING WELL WITH OCCASSIONAL COUGHING.
--- NOTE | 2016-12-21 11:30 | NUR ---
PATIENT IS FOLLOWING COMMANDS WELL.
--- NOTE | 2016-12-21 13:01 | NUR ---
Nutrition consult for TPN: Received order from Catrina IZAGUIRRE to manage TPN. chart reviewed. Sent order to pharmacy to change TPN to D25W, 4.25%AA @ 40 ml/hr with 20% 250 ml intralipids Q48 hours. This regimen will provide: 1230 kcal 41 gm protein If pt can tolerated increase TPN rate, recommend increasing TPN to 75 ml/hr to better meet pts increased nutrient needs. RDN following.
--- NOTE | 2016-12-21 13:04 | NUR ---
DIALYSIS WAS STARTED ON PATIENT AT 1227, AND PATIENT IS TOLERATING IT WELL. RT IN ROOM WITH PATIENT ALSO.
--- NOTE | 2016-12-21 15:38 | NUR ---
Mr. Caldwell had bedside hemodialysis today via his left chest hemosplit from 1227 until 1527. Average blood flow was 400 mls/minute. Attempted to remove 3-4 kgs however today Mr. Caldwell did not tolerate this much volume. Levophed was increased and albumin infused and the pt, still was having a b/p in the 60's systolically. I tried to leave the goal at 3000 mls and his b/p still remained unstable. Net fluid removed today was 2544 mls. Post vital signs were: B/P: 116/74, HR: 86, Temp: 97.6, Resps: 30.
--- NOTE | 2016-12-21 16:48 | NUR ---
PATIENT EXTUBATED BY RT AT 1635, TOLERATING WELL. SPO2 IS 99%.
--- NOTE | 2016-12-21 19:15 | NUR ---
SHIFT ASSESSMENT COMPLETE, SEE FLOWSHEET FOR DETAILS. PATIENT EXTUBATED TODAY, NOW ON 2L NC, RR EVEN AND NONLABORED. S1S2, NSR ON MONITOR WITH PVC'S. WOUND VAC X2 DRAINING SCANT AMOUNT OF DRAINAGE. SEE FLOWSHEET FOR MORE DETAILS. AT BEDSIDE AT THIS TIME. COMPLETE LINEN CHANGES PERFORMED AND PATIENT CLEANED UP. TURNED FOR COMFORT. VSS, WILL MONITOR.
--- NOTE | 2016-12-21 21:00 | NUR ---
AT BEDSIDE, NO CHANGES.
--- NOTE | 2016-12-21 23:00 | NUR ---
REASSESSMENT COMPLETE, NO CHANGES AT THIS TIME. VSS, WILL MONITOR.
[2016-12-22] VITALS (95 sets, daily range): BP systolic 81–125; BP diastolic 45–78
--- NOTE | 2016-12-22 01:05 | NUR ---
TURNED, PATIENT PLACED ON CPAP TO SLEEP.
--- NOTE | 2016-12-22 03:20 | NUR ---
XRAY IN ROOM.
--- NOTE | 2016-12-22 04:00 | NUR ---
CENTRAL LINE WILL NOT DRAW BLOOD, LAB NOTIFIED.
--- NOTE | 2016-12-22 05:27 | NUR ---
TURNED FOR COMFORT. VSS.
[2016-12-22 06:30] LABS: BASOPHILS 0.5 % (0-2); EOSINOPHILS 17.6 % (0-7); HEMATOCRIT 29.5 % (42.0-54.0); HEMOGLOBIN 8.7 g/dL (13.5-17.5); IMMATURE GRANULOCYTES 2.7 % (0-5); LYMPHOCYTES 8.5 % (15-50); MCH 29.7 pg (26.0-34.0); MCHC 29.5 g/dL (31.0-37.0); MCV 100.7 fL (80.0-100.0); MEAN PLATELET VOLUME 9.7 fL (7.4-10.4); MONOCYTES 12.6 % (2-11); NEUTROPHILS 58.1 % (40-80); PLATELET COUNT 159 10x3/uL (130-400); RBC 2.93 10x6/uL (4.20-6.10); RDW 17.3 % (11.5-14.5)
[2016-12-22 06:31] LABS: WBC 9.2 10x3/uL (4.8-10.8)
[2016-12-22 06:43] LABS: ANION GAP 11.4 mmol/L (8-16); CALCIUM 10.5 mg/dL (8.5-10.1); CARBON DIOXIDE 30.3 mmol/L (21.0-32.0); MAGNESIUM - SERUM 2.1 mg/dL (1.8-2.4); PHOSPHOROUS 4.1 mg/dL (2.5-4.9); POTASSIUM - SERUM 3.7 mmol/L (3.5-5.1); VANCOMYCIN - RANDOM 19.4 ug/mL (10.0-20.0)
--- NOTE | 2016-12-22 07:30 | NUR ---
REC'ED REPEORT FROM OUT GOING RN - CPOC
--- NOTE | 2016-12-22 08:00 | NUR ---
MAURY ALEXANDRA AT BEDSIDE FOR ASSESSMENT - PT C/O NAUSEA AND PAIN IN LEGS - AWAITING ORDERS ASSESSMENT COMPLETE - REPOSTIONED PT - TITRATED LEVOFED PER ORDER CPOC
--- NOTE | 2016-12-22 09:00 | NUR ---
FAMILY AT BEDSIDE - DISCUSSED KEEPING HOB AT 30 DEGREES - SPOUSE VERBALIZED UNDERSTANDING. SPOUSE ASKED FOR RESPRIATORY TREATMENT - UPDATED THAT PT HAD A RESPIRTATORY TREATMENT EARILIER - 0945 NOTIFIED RT - RT PLACED PT ON BIPAP - PT RESTING WITH EYES CLOSED - RESPIRATIONS REGULAR RATE AND RHYTHM. CPOC
--- NOTE | 2016-12-22 09:40 | NUR ---
PAGED MS ANGEL ALEXANDRA R/T REQUESTING TYENOL FOR PAIN CONTROL - AWAITING CALL BACK
--- NOTE | 2016-12-22 11:00 | NUR ---
DR. MORGAN AT BEDSIDE FOR ASSESSMENT - DISCUSSED PT C/O BILAT LOWER EXT - SPOUSE REQEUSTED RX FOR TYENOL - MD DECLINED DUE TO PT RETAING CO2 WITH ANY PAIN MEDICATION. ASSESSMENT COMPLETE - PT RESTING WITH BIPAP ON - RESPIRATIONS REG RATE AND RHYTHM. CPOC
--- NOTE | 2016-12-22 11:54 | OP ---
PATIENT NAME: CELSA HARRIS MEDICAL RECORD: [id number] :66 LOCATION:[facility] D.2302 ADMISSION DATE:12/16/16 SURGEON: VALERIE BOX MD DATE OF OPERATION: 12/16/2016 REFERRING PHYSICIAN: Jett Terry MD CO-SURGEON: Fernando Montesinos MD and Dr. Box ANESTHESIA: General endotracheal per LAUNDRY HOUSEKEEPING AIDE. OPERATION PERFORMED: Penectomy with perineal exploration and excision of ischemic skin and necrotic subcutaneous fat from the left thigh, also transplantation of testicles in the subcutaneous pocket and application of wound VAC dressing. PREOPERATIVE NOTE: Mr. Harris is a patient well known to me 46-year-old super morbidly obese, diabetic white male with hypoventilation with hypercapnia obesity related syndrome and end-stage renal disease, dependent on hemodialysis. He was recently hospitalized due to a ruptured bleeding, right arm brachiocephalic AV fistula, I ligated that. He was subsequently treated for sepsis and respiratory failure and had prolonged interval on a mechanical ventilator. He had a tunneled dialysis catheter placed initially in the left groin and later moved to the left internal jugular vein. His right internal jugular vein has jailed by previous endovascular stenting and not available for access. The patient was discharged from the hospital last Saturday only to return from the [facility] to [place] early this morning with a gangrenous penis. With a diagnosis of Gladys's gangrene, Dr. Montesinos seen the patient and has asked me to come to help him in the operating room. The patient is going to need some level of penile amputation as well as other indicated procedures depending upon the spread of the necrotizing process. Under initially general anesthesia by LMA later converted to general endotracheal anesthesia, the patient was placed in supine position with the legs somewhat frog-leg and prepped and draped in a sterile manner from nipples to knees. Dr. Montesinos began the operation with a circumferential skin incision around the penis and we found immediately that there was a very extensive subcutaneous vein and arterial necrosis and that there was necrosis of the shaft of the penis and a corpus cavernosum and corpus spongiosum in the urethra as far proximally as we dissected. We dissected up as far as the pubis and the spermatic cords and testicles from the necrotic tissue. The incision was actually extended up over the left inguinal canal and we found thankfully that the necrotizing process did not involve the inguinal canal or spermatic cord and that the left and the right testicles were both viable. There was, however, a considerable extent of necrotic tissue within the scrotum and there was definitely ischemic skin present on the scrotal sac. It proved necessary to resect a large portion of the scrotal skin. Neither Dr. Montesinos nor I, felt that it was appropriate to open the patient's abdomen to enter the pelvis as we did not consider him to be prepared for a prostatectomy or cystectomy and so the penis was amputated really at the level just below the urogenital diaphragm and oversewn with Monocryl sutures and a Rodríguez catheter inserted into urethra at that point. The urethral tissues appeared to be necrotic at that point as well. Hemostasis was obtained during the operation additionally with electrocautery, although unfortunately it was not necessary to do too much cauterization as there was not much bleeding. The testicles right and left were implanted in the OPERATIVE REPORT [id number] CELSA HARRIS subcutaneous pockets on the right side under the skin of the medial right thigh and in the left more under the suprapubic skin above the inguinal incision. I then excised the prior tunneled dialysis catheter sites and surrounding indurated discolored skin and indurated subcutaneous fat from the left thigh. This produced a somewhat triangular shape area of approximately 100 square cm. Hemostasis there was also obtained with electrocautery. That wound was subsequently dressed with a wound VAC. The perineal incision was partially close, so was to protect the spermatic cords and testicles from the wound VAC and then the perineal wound was dressed with a wound VAC. The patient requires additional IV access beyond the dual lumen tunneled dialysis catheter present in the left neck. He was then reprepped and draped and I used ultrasound to locate a tributary of the left internal jugular vein or left subclavian vein and using micropuncture technique, It was accessed and this led up to placement of a triple lumen Arrow guard central venous catheter. It was sutured to the skin at the entry site with 2-0 Prolene and the silk suture holding the tunneled dialysis catheter in place was also then replaced with a 2-0 Prolene. Sterile dressings were applied and the patient left intubated and was taken to the intensive care unit and placed on a ventilator. Blood loss during the operation was actually quite minimal, none was replaced. The patient was transfused due to preexisting anemia and was given 2 units of fresh frozen plasma to correct his prothrombin time, which is elevated due to chronic Coumadin therapy. The patient is having a history of atrial fibrillation and CVA. No drain was used other than the wound VAC, surgical specimens consisted of the penis and the sharply excised soft tissue specimens dartos fascia, scrotal skin, spermatic cord lipoma, etc. PLAN: The patient will be placed on a ventilator and NICU now. We will obtain a CT scan with IV contrast to delineate the extent of the infectious inflammatory process in the pelvis and abdomen and also particularly in the abdominal wall. The patient as it stands now, will be return to the operating room on Saturday for wound VAC dressing changes and possibly at least partial perineal wound closure. Of course it is possible the patient may require return to the operating room before that for further surgery if the process has extended far up into the pelvis in particular. TRANSINT:[id number] Voice Confirmation ID: [id number] DOCUMENT ID: [id number] VALERIE BOX MD at 1154 CC: FERNANDO MONTESINOS MD [id number] DICTATION DATE: 12/16/16 1534 MDM SR: 12/16/16 191 ADM IN [facility] [address] [place] [address]
--- NOTE | 2016-12-22 11:54 | OP ---
PATIENT NAME: CELSA HARRIS MEDICAL RECORD: [id number] :66 LOCATION:[facility] D.2302 ADMISSION DATE:12/16/16 SURGEON: VALERIE BOX MD DATE OF OPERATION: 12/18/2016 REFERRING PHYSICIAN: Jett Garcia MD. ADDITIONAL INTERESTED PHYSICIANS: Dr. Mark Mancilla, Dr. Ciara Jordan, and Dr. Fernando Montesinos. OPERATION PERFORMED: Wound VAC dressing change and wound inspection and lavage. SURGEON: Valerie Box MD. ANESTHESIA: General endotracheal per BOOTS AND SHOES SUPERVISOR. POSTOPERATIVE DIAGNOSES: Gladys gangrene, status post penectomy and partial scrotal resection. PREOPERATIVE NOTE: Mr. Harris is an unfortunate 46-year-old super morbidly obese, diabetic with sleep apnea and obesity related hypoventilation syndrome with hypercapnia. He is on steroids. He has a history of atrial fibrillation and CVA and is on chronic Coumadin therapy. He has end-stage renal disease and is on chronic hemodialysis and recently was hospitalized with a ruptured bleeding right arm brachiocephalic AV fistula, which was subsequently ligated and the wound has been cared for since with Dakin's wet-to-dry dressings. During his recent hospitalization, he suffered respiratory arrest a few days postop and spent several days on a ventilator. He was treated with wide-spectrum antibiotics. He was readmitted to the hospital on this occasion with a gangrenous penis, was being readmitted on Saturday morning, just couple of days after being discharged from the hospital with proceeding Saturday. He was taken to the operating room by Dr. Montesinos and myself on Saturday and at that time, we found his penis to be necrotic to its very base almost to the prostate or the bladder neck and that there was necrotic or nonviable tissue with extensive venous thrombosis in the scrotum, but this process did not involve the testicles. He underwent a very high penile resection and a Rodríguez catheter was placed into the urethral stump at that time. The testicles were transplanted into the subcutaneous pocket in the right thigh and a subcutaneous pocket in the pubic area. Exploration of the left groin and left thigh was done because of induration and changes consistent with infection and necrosis in the skin and subcutaneous tissues on the left. He proved to have underlying fat necrosis. There was no purulence there, indeed there was no purulence identified within the scrotal sac or peritoneum. He had approximately 100 square cm of skin and underlying subcutaneous tissue excised there on the right; this was the site of a recent tunneled dialysis catheter. His wound was dressed with a wound VAC on Saturday and plans were made at that time for him to be returned to the operating room today on Saturday for a wound VAC dressing change and wound examination. The patient is intubated and on a ventilator on ICU. He was brought to the surgery directly from ICU and administered general endotracheal anesthesia per BOOTS AND SHOES SUPERVISOR. The patient is on Levophed in the ICU and that was continued at the same dosage here in surgery. He was placed in low stirrups and supine position, prepped and draped in a sterile manner. The wound VAC dressings were removed of course and the wounds scrubbed with Betadine. These areas were rinsed thoroughly with saline. There was really no necrotic tissue that required sharp OPERATIVE REPORT [id number] CELSA HARRIS debridement. The perineal wound and thigh wounds were each lavage aggressively with saline and the power agronomy professor and after which, wound VAC dressings were reapplied with extensive use of Cavilon on the surrounding skin and caution was used to prevent the Rodríguez catheter from putting excessive pressure on the intact adjacent skin where it seemed to have been doing that and there is danger of further skin necrosis from it. The patient also was seen to have an area of skin discoloration with some blister formation on the posterior medial upper right thigh; this area was not frankly necrotic. There was no purulence, so the area was somewhat indurated and for now just be observed and it was dressed with Silvadene and he will continue to have daily Silvadene dressings to that area. The patient was then returned to the ICU with new wound VAC dressing in place, which at that time had a very good seal. We continued him on a continuous 125 mmHg suction. Blood loss during the operation was essentially none. Sponges, instruments and needles were accounted for. No drain was used rather than 2 black foam KCi wound VAC sponges and no surgical specimen was submitted for histopathology. There was no odor or evidence of purulence and I did not repeat cultures of his wounds. PLAN: We will continue to monitor and treat the patient in the intensive care unit, hopefully, now without any further plans for surgery, he can be weaned and extubated per his radiology clerk. The wound VAC dressing changes are to be continued 3 times a week and we will ask for help in consultation from the [facility] clinical specialist nurse regarding application of the wound VAC dressing and maintaining a seal, which is a bit problematic in this region. 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 For now, he is off Coumadin. His phosphate level was elevated. I do not know his calcium phosphate product. His PTH level is pending and the pathology report on the excised tissue from Saturday is pending still as well. We will need to continue to be suspicious and look for evidence of spreading infection or necrotic process in the abdomen or pelvis and also particularly in the soft tissue and fascial planes of the abdominal wall and thigh. For now, he will continue hemodialysis via his left internal jugular tunneled dialysis catheter. I am sure that dialysis access will become increasingly problematic with him. For now, he is on Coumadin, more probably, he is on steroids and that will obviously need to be continued. Then, hopefully, his steroid dosage can be tapered. He needs to start nutritional support, preferably enteral feedings as soon as possible and also we need to stop or discontinue the Levophed pressor agents as soon as possible. We will recommend that we begin looking for placement in an LTAC unit as he is going to continue to require a lot of care and attention, particularly wound care, dialysis, et cetera. TRANSINT:[id number] Voice Confirmation ID: [id number] DOCUMENT ID: [id number] OPERATIVE REPORT [id number] CELSA HARRIS JAMES MD at 1154 CC: MARK MANCILLA MD, JETT GARCIA MD and FERNANDO MONTESINOS MD [id number] DICTATION DATE: 12/18/16 1012 [place] [employer] OPERATOR: 12/18/16 1218 ADM IN [facility] [address] [place] [address]
--- NOTE | 2016-12-22 12:00 | NUR ---
SPOUSE AT BEDSIDE FOR VISITATION - PT RESTING WITH EYES CLOSED WITH BIPAP ON - RESPIRATIONS REG RATE AND RHYTHM - SPOUSE ASKED TO BE NOTIFIED IF PT WAKES UP DURING VISIATION HOURS - CPOC
--- NOTE | 2016-12-22 13:40 | NUR ---
RT AT BEDSIDE FOR TREATMENT - PT RESTING - CALL LIGHT IN REACH - CPOC
--- NOTE | 2016-12-22 16:15 | NUR ---
I&O COMPLETE - NO URINE OUTPUT
--- NOTE | 2016-12-22 17:00 | NUR ---
WET TODRY DRESSING ON RIGHT UPPER ARM - ORDERED BID - DRESSING CDI -
--- NOTE | 2016-12-22 18:00 | NUR ---
SPOUSE AT BEDSIDE - PT TOOK OFF BIPAP AND PLACE 4L/NC ON. VVS - CPOC
--- NOTE | 2016-12-22 19:00 | NUR ---
SHIFT ASSESSMENT COMPLETE, PATIENT RESTING IN BED ON BIPAP @ 30%, RR EVEN AND NONLABORED. DENIES CHEST PAIN. S1S2, NSR ON MONITOR. SEE FLOWSHEET FOR DETAILS. DENIES NEED AT THIS TIME. VSS.
--- NOTE | 2016-12-22 21:00 | NUR ---
PATIENT REPOSISTIONED FOR COMFORT, NO VISITORS AT THIS TIME.
--- NOTE | 2016-12-22 21:30 | NUR ---
PATIENT REQUESTED I CALL HIS SINCE SHE MISSED VISITATION. DID CALL, TOLD ME TO REPORT TO HIM THAT SHE OVERSLEPT.
--- NOTE | 2016-12-22 23:00 | NUR ---
REASSESSMENT COMPLETE, NO ACUTE CHANGES. PATIENT RESTING WELL ON BIPAP. DENIES NEED AT THIS TIME. CL IN REACH.
[2016-12-23] VITALS (59 sets, daily range): BP systolic 75–114; BP diastolic 45–70
--- NOTE | 2016-12-23 01:00 | NUR ---
RESTING WITH EYES CLOSED, VSS, RR EVEN AND NONLABORED.
--- NOTE | 2016-12-23 03:10 | NUR ---
XRAY IN ROOM. TOLERATED WELL.
[2016-12-23 06:09] LABS: BASOPHILS 0.7 % (0-2); EOSINOPHILS 17.6 % (0-7); HEMATOCRIT 26.1 % (42.0-54.0); HEMOGLOBIN 7.8 g/dL (13.5-17.5); IMMATURE GRANULOCYTES 4.6 % (0-5); LYMPHOCYTES 9.7 % (15-50); MCH 30.2 pg (26.0-34.0); MCHC 29.9 g/dL (31.0-37.0); MCV 101.2 fL (80.0-100.0); MEAN PLATELET VOLUME 9.4 fL (7.4-10.4); MONOCYTES 12.5 % (2-11); NEUTROPHILS 54.9 % (40-80); PLATELET COUNT 150 10x3/uL (130-400); RBC 2.58 10x6/uL (4.20-6.10); RDW 17.2 % (11.5-14.5); WBC 8.7 10x3/uL (4.8-10.8)
[2016-12-23 06:47] LABS: ALBUMIN 2.7 g/dL (3.4-5.0); ANION GAP 13.3 mmol/L (8-16); BILIRUBIN - TOTAL 1.14 mg/dL (0.2-1.3); CALCIUM 10.7 mg/dL (8.5-10.1); CARBON DIOXIDE 27.6 mmol/L (21.0-32.0); MAGNESIUM - SERUM 2.1 mg/dL (1.8-2.4); PHOSPHOROUS 4.3 mg/dL (2.5-4.9); POTASSIUM - SERUM 3.9 mmol/L (3.5-5.1); PROTEIN - SERUM 5.8 g/dL (6.4-8.2)
[2016-12-23 06:48] LABS: CREATININE - SERUM 6.3 mg/dL (0.6-1.3)
--- NOTE | 2016-12-23 11:00 | NUR ---
NO CHANGE NOTED
--- NOTE | 2016-12-23 15:00 | NUR ---
NO CHANGE NOTED
--- NOTE | 2016-12-23 19:00 | NUR ---
Reweived patient resting in bed with eyes closed, assessment completed per flowsheet. Patient AO x4, calm and cooperative. Eyes PERRLA @ 4mm with brisk response, sclera is white. S1/S2 noted NSR on telemetry with HR 84, rhythmic and regular. Breathing is slightly shallow on BiPAP @ 30% with O2 sat 97%, Slight crackles noted bilateral upper and mid with diminished lower. Hemosplit noted L upper chest, dressing CDI. Abdomen is round and soft with bowel sounds hypoactive x4, non-tender. Patient had penectomy, cantu inserted into urethra with scant dark yellow/brown urine noted in collection. Wound Vac x2 sites noted groin/L thigh with dressing CDI, dark drainage noted. Passive ROM all extremities with weakness noted, all pulses palpable with cap refill < 3 sec. L subclavian CVL noted with dressing CDI, patent with Norepinephrine @ 6mcg/kg/min / TPN @ 40ml/hr / NS @ KVO (10ml) infusing. Patient on Air overlay, repositioned for comfort. Denies pain or other needs at this time, all VSS and will continue to monitor.
--- NOTE | 2016-12-23 21:00 | NUR ---
Family at bedside, all questions answered to satisfaction. Patient repositioned for comfort, no further needs at this time. All VSS and will continue to monitor.
--- NOTE | 2016-12-23 23:00 | NUR ---
Reassessment completed per flowsheet, patient resting in bed with eyes closed. Patient AOx4, calm and cooperative. S1/S2 noted NSR with rare PVC on telemetry with HR 96, irregular. Breathing is slightly shallow on BiPAP @ 30%, O2 sat 97%. R arm old fistula site dressing changed, dressing CDI. Wound Vac site x2 dressing CDI, small dark drainage noted in canister. All pulses palpable with cap refill < 3 sec. Patient repositioned for comfort, denies pain or other needs at this time. All VSS and will continue to monitor.
[2016-12-24] VITALS (92 sets, daily range): BP systolic 73–143; BP diastolic 41–101
--- NOTE | 2016-12-24 01:00 | NUR ---
Patient resting in bed with eyes closed, breathing is slightly shallow and unlabored. Patient denies pain or other needs at this time, all VSS and jessica continue to monitor.
--- NOTE | 2016-12-24 02:45 | NUR ---
Reassessment completed per flowsheet, patient resting in bed with eyes closed. S1/S2 noted NSR with PVC on telemetry with HR 87, irregular. Breathing is slightly shallow on BiPAP 30%, O2 sat 97%. R arm fistula site dressing CDI, no bruit/thrill. L upper chest hemosplit dressing CDI. Groin/L thigh wound vac site x2 dressing CDI, scant dark exudate noted in canister. All pulses palpable with cap refill < 3 sec, repositioned for comfort. Denies pain or other needs at this time, all VSS and will continue to monitor.
--- NOTE | 2016-12-24 05:00 | NUR ---
Patient resting in bed with eyes closed, repositioned for comfort. Unable to collect AM labs from CVL, notified lab to draw. Will await results, no further needs at this time.
[2016-12-24 06:07] LABS: BASOPHILS 0.7 % (0-2); EOSINOPHILS 15.7 % (0-7); HEMATOCRIT 27.9 % (42.0-54.0); HEMOGLOBIN 8.6 g/dL (13.5-17.5); IMMATURE GRANULOCYTES 6.2 % (0-5); LYMPHOCYTES 7.8 % (15-50); MCH 30.2 pg (26.0-34.0); MCHC 30.8 g/dL (31.0-37.0); MCV 97.9 fL (80.0-100.0); MEAN PLATELET VOLUME 10.9 fL (7.4-10.4); MONOCYTES 13.9 % (2-11); NEUTROPHILS 55.7 % (40-80); PLATELET COUNT 125 10x3/uL (130-400); RBC 2.85 10x6/uL (4.20-6.10); WBC 9.1 10x3/uL (4.8-10.8)
[2016-12-24 06:08] LABS: ALBUMIN 2.9 g/dL (3.4-5.0); BILIRUBIN - TOTAL 1.27 mg/dL (0.2-1.3); CALCIUM 11.1 mg/dL (8.5-10.1); CARBON DIOXIDE 25.1 mmol/L (21.0-32.0); CREATININE - SERUM 7.5 mg/dL (0.6-1.3); PROTEIN - SERUM 6.1 g/dL (6.4-8.2)
[2016-12-24 06:12] LABS: ANION GAP 15.8 mmol/L (8-16); POTASSIUM - SERUM 4.9 mmol/L (3.5-5.1)
[2016-12-24 06:48] LABS: MAGNESIUM - SERUM 2.1 mg/dL (1.8-2.4); PHOSPHOROUS 5.2 mg/dL (2.5-4.9)
--- NOTE | 2016-12-24 07:15 | NUR ---
PATIENT RESTING QUIETLY, AND DENIES ANY NEEDS. BED IN LOW POSITION, AND CALL LIGHT WITHIN REACH.
--- NOTE | 2016-12-24 09:30 | NUR ---
PATIENT REFUSES TO TAKE OFF BIPAP STATES HE NEEDS IT BECAUSE HE CANNOT BREATHE. EXPLAINED TO PATIENT THAT HE WAS DOING WELL AND WE NEEDED TO TRY HIM ON CANNULA.
--- NOTE | 2016-12-24 09:37 | NUR ---
Nutrition follow-up: Pt now extubated. Starting sips of water. Swallow eval ordered. TPN continues to infuse @ 40 ml/hr; renal now managing PO4, Ca removed from TPN Pt continues on Bipap and is SOB Stool softener order due to no BM in several days RDN following.
--- NOTE | 2016-12-24 11:30 | NUR ---
PATIENT SLEEPING WITH EYES CLOSED RESTING WELL. CALL LIGHT WITHIN REACH AND BED IN LOW POSITION.
--- NOTE | 2016-12-24 13:05 | NUR ---
PATIENT STILL REFUSES TO REMOVE BIPAP AT THIS TIME.
--- NOTE | 2016-12-24 14:25 | NUR ---
JACK BYRD FROM WOUND CARE HERE IN TO SEE PATIENT, WOUND VAC DRESSINGS CHANGED.
--- NOTE | 2016-12-24 14:30 | NUR ---
DECREASED LEVOPHED TO 5MCG/MIN.
--- NOTE | 2016-12-24 14:57 | NUR ---
Wound care/vac dressing change: WOUND TYPE: surgical WOUND LOCATION: #1 Left upper thigh #2 Periarea/penis WOUND AGE IN MONTHS: week DEBRIDEMENT ATTEMPTED IN LAST 10 DAYS? DATE/TYPE: SERIAL DEBRIDEMENTS REQUIRED? MEASUREMENT DATE: 12/24/16 #1: 7cm x 7.5cm x 0.5cm (improved) #2 4cm x 2cm x 4.5cm (improved) FULL THICKNESS? yes MUSCLE, TENDON OR BONE EXPOSED? no UNDERMINING? no TUNNELING/SINUS? no APPEARANCE OF WOUND BED : red/beefy (both wounds) EXUDATE (AMOUNT, COLOR, ODOR): small serosanguinous/ no odor FOAM TYPE: #1 black foam # OF PIECES USED: 1 piece FOAM TYPE: #2 black foam # OF PIECES USED: 1 piece EDUCATION: n/a
--- NOTE | 2016-12-24 15:30 | NUR ---
DECREASED LEVOPHED TO 4MCG/MIN. BIPAP REMOVED AND PATIENT PLACED ON O2 AT 4L/MIN VIA NC. AT BEDSIDE.
--- NOTE | 2016-12-24 15:51 | NUR ---
DIALYSIS NURSE IN ROOM WITH PATIENT.
--- NOTE | 2016-12-24 15:54 | NUR ---
MED RECEIVED FROM PHARMACY AND GIVEN.
--- NOTE | 2016-12-24 16:49 | NUR ---
CALLED INTO PATIENT ROOM. DIALYSIS NURSE STATES THAT HIS ELIEZER-SPLIT WAS BLEEDING AT THE SITE. WHEN OBSERVED SITE DRESSING HAD BEEN REMOVED AND DIALYSIS NURSE WAS HOLDING PRESSURE WITH 4X4'S. CVL DRESSING GIVEN TO HER TO REPLACE DRESSING.
--- NOTE | 2016-12-24 18:58 | NUR ---
DIALYSIS NURSE REQUEST TO ORDER ACTIVASE DUE TO PATIENT CLOTTING DURING DIALYSIS.
--- NOTE | 2016-12-24 19:00 | NUR ---
Received patient resting in bed undergoing dialysis, assessment completed per flowsheet. Patient AO x4, calm and cooperative. Eyes PERRLA @ 4mm with brisk response, sclera is reddened. S1/S2 noted NSR with occaisional PVC on telemetry with HR 99. Breathing is slightly shallow on BiPAP @ 30% with O2 sat 98%, Lung sounds clear bilateral upper and mid with diminished lower. Abdomen is distended and semi-firm with bowel sounds active x4, non-tender. Rodríguez inserted into urethra and secured, scant db urine noted in collection. Weakness noted all extremities with all pulses palpable, cap refill < 3 sec. Hemosplit L upper chest dressing CDi, dialysis to instill cathflo after completion. L subclavian CVL dressing CDI, Levophed @ 3mcg/kg / NS @ KVO (10ml) / TPN @ 40ml/hr infusing. R upper arm old fistula site dressing CDI, Wound vac site x2 groin/L thigh dressing CDI. Pateint denies pain or other needs at this time, all VSS and will continue to monitor.
--- NOTE | 2016-12-24 19:04 | NUR ---
DIALYSIS REMOVED 1.8L/MIN, STARTED AT 1634 AND ENDED AT 1845.
--- NOTE | 2016-12-24 21:00 | NUR ---
Family at bedside for visitation, all questions answered to satisfaction. HS meds given without difficulty, patient resting in bed with eyes closed on BiPAP. No further needs at this time, all VSS and will continue to monitor.
--- NOTE | 2016-12-24 23:00 | NUR ---
Reassessment completed per flowsheet, patient resting in bed with eyes closed. S1/S2 noted Sinus Tach with occaisional PVC on telemetry with HR 103. Breathing is slightly shallow on BiPAP @ 30%, O2 sat 98%. R upper arm dressing CDI, Wound vac site x2 dressing CDI. Rodríguez secured in place, slight redness noted groin area. All pulses palpable with cap refill < 3 sec. Patient denies pain or other needs at this time, all VSS and will continue to monitor.
[2016-12-25] VITALS (93 sets, daily range): BP systolic 70–122; BP diastolic 22–96
--- NOTE | 2016-12-25 01:00 | NUR ---
Patient resting in bed with eyes closed. Patient repeatedly rmoves BiPAP mask and c/o not being able to breathe. Mask replaced and patient returns to resting. No further needs at this time, all VSS and will continue to monitor.
--- NOTE | 2016-12-25 02:50 | NUR ---
Reassessment completed per flowsheet, patient resting in bed on BiPAP. S1/S2 noted Sinus Tach with PVC on telemetry with HR 104. Breathing is slightly shallow on BiPAP 30%, O2 sat 98%. R upper arm dressing CDI, Wound VAC site x2 groin/L thigh dressing CDI. Rodríguez secured in place, slight db urine noted in collection. All pulses palpable with cap refill < 3 sec, skin is warm/dry to touch. Patient denies pain or other needs at this time, all VSS and will continue to monitor.
[2016-12-25 04:09] LABS: BASOPHILS 0.7 % (0-2); EOSINOPHILS 14.4 % (0-7); HEMATOCRIT 28.5 % (42.0-54.0); HEMOGLOBIN 8.5 g/dL (13.5-17.5); IMMATURE GRANULOCYTES 5.1 % (0-5); LYMPHOCYTES 11.3 % (15-50); MCH 30.1 pg (26.0-34.0); MCHC 29.8 g/dL (31.0-37.0); MEAN PLATELET VOLUME 9.6 fL (7.4-10.4); MONOCYTES 15.3 % (2-11); NEUTROPHILS 53.2 % (40-80); RBC 2.82 10x6/uL (4.20-6.10); RDW 18.1 % (11.5-14.5); WBC 9.7 10x3/uL (4.8-10.8)
[2016-12-25 04:20] LABS: BILIRUBIN - TOTAL 1.48 mg/dL (0.2-1.3); CALCIUM 11.3 mg/dL (8.5-10.1); CARBON DIOXIDE 28.9 mmol/L (21.0-32.0); CREATININE - SERUM 6.3 mg/dL (0.6-1.3)
[2016-12-25 04:24] LABS: PHOSPHOROUS 3.3 mg/dL (2.5-4.9); POTASSIUM - SERUM 3.9 mmol/L (3.5-5.1)
[2016-12-25 04:25] LABS: MCV 101.1 fL (80.0-100.0); PLATELET COUNT 170 10x3/uL (130-400)
--- NOTE | 2016-12-25 05:00 | NUR ---
AM labs collected without difficulty, patient resting in bed with eyes closed. Denies pain or other needs at this time, all VSS and will continue to monitor.
--- NOTE | 2016-12-25 08:19 | NUR ---
PT ON BIPAP, RESTING QUIETLY, VSS, LEVOPHED 6MCG/MIN, MAP ABOVE 60. ALL ALARMS SET.
--- NOTE | 2016-12-25 19:15 | NUR ---
REPORT RECIEVED. ASSESSMENT COMPLETED. PT IS AROUSABLE BUT DOES NOT ANSWER QUESTIONS. PT IS ON BIPAP AT 30% WITH ADEQUATE SATURATION. PT HAS CRACKLES IN THE UPPER LOBES AND DIMINISHED SOUNDS IN THE LOWER LOBES. PT HAS A CVL IN THE LT SUBCLAVIAN WITH LEVAPHED AT 6 MCG/MIN, TPN AT 40 ML/HR, AND NS AT 10ML/HR. PT HAS A HEMOPLIT IN THE LT UPPER CHEST. PT HAS A OLD FISTULA SITE THAT HAS A DRESSING THAT IS CDI. WOUND VAC ON THE GROIN AREA AND LT THIGH AREA. PT HAS PALP PULSES IN ALL EXTREMITIES. PT POSITIONED FOR COMFORT WILL CONTINUE TO MONITOR.
--- NOTE | 2016-12-25 21:00 | NUR ---
NO VISITORS AT THIS TIME. RT ARM DRESSING CHANGED PER ORDER. PT POSITIONED FOR COMFORT WILL CONTINUE TO MONITOR.
--- NOTE | 2016-12-25 23:00 | NUR ---
REASSESSMENT COMPLETED. NO ACUTE CHANGES AT THIS TIME. PT POSITIONED FOR COMFORT WILL CONTINUE TO MONITOR.
[2016-12-26] VITALS (96 sets, daily range): BP systolic 61–121; BP diastolic 34–113
--- NOTE | 2016-12-26 01:00 | NUR ---
PT POSITIONED FOR COMFORT, WILL CONTINUE TO MONITOR.
--- NOTE | 2016-12-26 03:00 | NUR ---
REASSESSMENT COMPLETED. NO ACUTE CHANGES AT THIS TIME. PT [id number] FOR COMFPRT WILL CONTINUE TO MONITOR.
[2016-12-26 04:49] LABS: ALBUMIN 3.7 g/dL (3.4-5.0); BILIRUBIN - TOTAL 1.46 mg/dL (0.2-1.3); CARBON DIOXIDE 27.9 mmol/L (21.0-32.0); CREATININE - SERUM 7.3 mg/dL (0.6-1.3); MAGNESIUM - SERUM 2.3 mg/dL (1.8-2.4); PROTEIN - SERUM 6.5 g/dL (6.4-8.2)
--- NOTE | 2016-12-26 05:00 | NUR ---
PT POSITIONED FOR COMFORT. APPEARS TO BE RESTING WITH NO DISTRESS. WILL CONTINUE TO MONITOR.
[2016-12-26 05:04] LABS: ANION GAP 15.9 mmol/L (8-16); PHOSPHOROUS 4.6 mg/dL (2.5-4.9); POTASSIUM - SERUM 4.8 mmol/L (3.5-5.1)
[2016-12-26 05:05] LABS: CALCIUM 12.6 mg/dL (8.5-10.1)
[2016-12-26 06:34] LABS: EOSINOPHILS 16.5 % (0-7); HEMATOCRIT 27.9 % (42.0-54.0); HEMOGLOBIN 8.3 g/dL (13.5-17.5); IMMATURE GRANULOCYTES 6.2 % (0-5); LYMPHOCYTES 10.4 % (15-50); MCH 30.3 pg (26.0-34.0); MCHC 29.7 g/dL (31.0-37.0); MCV 101.8 fL (80.0-100.0); MEAN PLATELET VOLUME 9.3 fL (7.4-10.4); MONOCYTES 17.8 % (2-11); NEUTROPHILS 48.1 % (40-80); PLATELET COUNT 170 10x3/uL (130-400); RBC 2.74 10x6/uL (4.20-6.10); WBC 10.4 10x3/uL (4.8-10.8)
--- NOTE | 2016-12-26 09:10 | NUR ---
Patient Name: CELSA HARRIS Encounter No: [id number] : 1970 Primary Insurance: MEDICARE A & B DCP follow-up note: Patient sleeping. No family present. Patient is good LTAC candidate. Case management will follow and assist as needed. Nupur Wright
--- NOTE | 2016-12-26 09:39 | NUR ---
Nutrition follow-up: Diet has advanced to renal soft; however, pt is still lethargic with bipap in place; po intake poor TPN continues to infuse @ 40 ml/hr with renal managing. Labs reviewed Wt: 304# Recommend PEG placement and TF of Nepro started @ 25 ml/hr with increase to goal rate of 60 ml/hr. RDN following.
--- NOTE | 2016-12-26 10:30 | NUR ---
DIALYSIS IN PROGRESS. NOT RESPONDING TO VERBAL STIMULIT. AFTER MUCH PHYSICAL STIMULATION DID MOVES FINGERS AND TOES. NO VERBAL RESPONSE ON REQUEST. SHAKES HEAD WHEN PUPILS CHECKED. AT BEDSIDE TO VERBAL RESPONSE. WILL HOLD MEDS TIL AFTER DIALYSIS. LEVOPHED GTT INCREASED DURING DIALYSIS TO MAINTAIN A MEAN OF 65 OR GREATER.
--- NOTE | 2016-12-26 12:26 | NUR ---
Mr. Caldwell had bedside hemodialysis today via his left chest Hemosplit from 0930 until 1204. Average blood flow was 350-400 mls/ minute. Net fluid removed was 1181 mls. Attempted to remove more fluid but pt was very hypotensive and up to 10 mcgs/minute of levophed. Dialyzer started trying to clot with thirty minutes left of treatment so I returned his blood while able. Received an order to increase his heparin dosing to 1000 units/hr.Post vital signs were: B/P:80/50, HR: 94, Temp:,98.5, Resps: 27.
--- NOTE | 2016-12-26 14:03 | CN ---
PATIENT NAME:CELSA HARRIS MEDICAL RECORD: [id number] : 66 LOCATION:[id number] ADMIT DATE: 12/16/16 ACCOUNT: [id number] CONSULTING PHYSICIAN: JOLANTA MORALES MD REFERRING PHYSICIAN: JETT GARCIA MD DATE OF CONSULTATION: 12/16/2016 CONSULT REQUESTING PHYSICIAN: Jett Garcia MD. REASON FOR CONSULTATION: Vent management. HISTORY OF PRESENT ILLNESS: Mr. Harris is a 46-year-old gentleman, very well known to us from previous service. The patient was admitted a few days ago with fistula rupture and repair, and respiratory failure. The patient was discharged on Saturday and readmitted from [facility] yesterday with questionable penile gangrene. The patient was taken to the OR today and he has amputation of the penis by Dr. Arguelles. Now, the patient is orally intubated and sedated. The history was taken by reviewing the patient's note as well as speaking with Dr. Arguelles. REVIEW OF SYSTEMS: Mainly in the history of present illness. PAST MEDICAL HISTORY: 1. History of CVA in 2011. 2. Recurrent respiratory failure. 3. Obstructive sleep apnea. 4. Diabetes mellitus. 5. Coronary artery disease. 6. Low back ache. 7. End-stage renal disease, on hemodialysis. PAST SURGICAL HISTORY: 1. He has a foot and arm surgery. 2. Fistula, dialysis catheter placement. 3. 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 ALLERGIES: PENICILLIN, CODEINE, MORPHINE, LATEX AND ARAVA. [facility]. He is on oral Coumadin and the patient is still on vancomycin with dialysis and Requip. PERSONAL AND SOCIAL HISTORY: The patient is a nonsmoker and nondrinker, , lives with his . FAMILY HISTORY: Significant for diabetes mellitus and cancer. PHYSICAL EXAMINATION: GENERAL: Now, the patient is orally intubated and sedated. VITAL SIGNS: The blood pressure is 85/51, pulses 92, respirations 18, temperature 98.2, SpO2 is 98% on assist control mechanical ventilation 60% oxygen. HEENT: Conjunctivae are pink. Sclerae nonicteric. NECK: Supple. No JVD. CHEST: There is no wheeze, no rales. HEART: Rate and rhythm regular, normal sound. No murmur. CONSULT REPORT [id number] CELSA HARRIS ABDOMEN: Soft. Bowel sounds present. No hepatosplenomegaly. RECTAL: Deferred. EXTREMITIES: No cyanosis. No clubbing. There is 1+ pedal edema. CENTRAL NERVOUS SYSTEM: The patient is orally intubated and sedated. There is no obvious cranial nerve abnormality. LABORATORY DATA: CBC: WBC 10, hemoglobin 9.3, hematocrit 30.7 and the platelet count is 150. Chemistry: Sodium 136, potassium 3.8, BUN is 34 and creatinine is 8.6. INR is 3.98 on admission. IMPRESSION: 1. Acute respiratory failure, post-procedural. 2. 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 4. History of obstructive sleep apnea. The patient is discharged on BiPAP. 5. Coronary artery disease. 6. End-stage renal disease. RECOMMENDATION: 1. We will continue mechanical ventilation. They gave him a stress dose of steroid, the patient is on prednisone 10 mg a day. 2. Albuterol and ipratropium nebulizer. 3. GI stress ulcer prevention. 4. DVT prophylaxis. 5. Follow up labs and chest radiograph. Discussed with Dr. Arguelles. Thank you for involving me in the care of Mr. Harris. TRANSINT:[id number] Voice Confirmation ID: [id number] DOCUMENT ID: [id number] JOLANTA MORALES MD at 1403 CC: JETT GARCIA MD [id number] DICTATION DATE: 12/16/16 1525 CROWN POUNCER: 12/16/16 1854 ADM IN [id number] [place] [address]
--- NOTE | 2016-12-26 14:28 | NUR ---
WOUND TYPE: surgical WOUND LOCATION:#1 Left upper thigh #2 Perineal/penis WOUND AGE IN MONTHS: week DEBRIDEMENT ATTEMPTED IN LAST 10 DAYS? DATE/TYPE: SERIAL DEBRIDEMENTS REQUIRED? MEASUREMENT DATE: 12/26/16 #1: 7cm x 7.5cm x 0.5cm (no change) #2: 4cm x 2cm x 4.5cm (no change) FULL THICKNESS? yes MUSCLE, TENDON OR BONE EXPOSED? no UNDERMINING? no TUNNELING/SINUS? no APPEARANCE OF WOUND BED : #1 & #2 Red, moist EXUDATE (AMOUNT, COLOR, ODOR): moderate serosanguinous no odor FOAM TYPE: #1 black # OF PIECES USED: 1 piece FOAM TYPE: #2 black # OF PIECES USED: 1 piece EDUCATION: none/ pt no awake
--- NOTE | 2016-12-26 16:55 | NUR ---
UNABLE TO TAKE ANY PO MEDS TODAY. CAN GET HIM AWAKE ENOUGH TO OPEN HIS EYES OR TALK. DOES NOT RESPOND TO VERBAL STIMULI. GRIMACE TO PAINFUL STIMULI. MOVES RANDOMLY ALL OVER BED. RIGHT UPPER AREA WITH SWOLLEN BLACK AREA OPEN AND DRAINING THICK RED WITH CLOTS. DRESSING APPLIED. DRESSING CHANGED TO RIGHT UPPER ARM OPEN AREA. SUCTIONED THICK YELLOW SPUTUM FROM BACK OF HIS THROAT. AND PATIENT THEN COUGHED UP LARGE AMOUNT THICK YELLOW SPUTUM. WOUND VAC AREA COMPRESSED. ROBLES WITH SMALL AMOUNT DARK ANN DRAINAGE. LEFT SUBCLAVIAN TRIPLE LUMEN INFUSING WITH LEVOPHED AT 11 MCG/MIN, TPN AT 40 MLHOUR. IVPB AND LIPDS INFUSING. MONITOR SR. ON 4 LTERS NC RIGHT NOW. WAS ON BIPAP THIS AM. RESP LOUD. ABD LARGE WITH VERY HYPOACTIVE BOWEL SOUNDS.
--- NOTE | 2016-12-26 18:55 | NUR ---
LEVOPHED INCREASED TO 13 MCG/MIN.
--- NOTE | 2016-12-26 19:14 | NUR ---
REPORT RECIEVED. ASSESSMENT COMPLETED. PT IS UNRESPONSIVE TO DEEP STIMULI. PTS PUPILS THE LT IS 4 AND FIXED THE RT IS 3 AND BRISK. ASKED CHARGE NURSE FOR SECOND OPINION SHE COMFIRMED. PT HAS A RT ARM OLD FISTULA RUPTURE SITE DRESSING CDI. PT IS ON CM WITH A HEART RATE OF 62 IN NORMAL SINUS RHYTHM S1S2 SOUNDS HEART. PT ON A BIPAP OF 40% WITH CRACKLES IN THER UPPER LOBES AND DIMINISHED SOUNDS IN THE LOWER LOBES. PT HAS A LT SUBCLAVIAN CVL SEE IV FLOW SHEET FOR FLUIDS. PT HAS A HEMOSPLIT IN THE LT UPPER CHEST THAT IS LOCKED. PT HAS A WOUND VAC THAT DRAINS DARK DRAINAGE FROM THE GROIN/ L THIGH. PALP PULSES IN ALL EXTREMITIES. PT POSITIONED FOR COMFORT WILL CONTINUE TO MONITOR.
--- NOTE | 2016-12-26 19:30 | NUR ---
DR. CRAWLEY SPOKEN TO ABOUT THE PUPILS AND THE BLOOD PRESSURE. ORDERED A HEAD CT STAT. IF MAXED OUT ON LEVO START VASOPRESSON.
--- NOTE | 2016-12-26 20:15 | NUR ---
PT BACK FROM HEAD CT POSITIONED FOR COMFORT WILL CONTINUE TO MONITOR.
--- NOTE | 2016-12-26 21:00 | NUR ---
AT BEDSIDE WITH PT. AWAITING HEAD CT RESULTS. POSITIONED PT FOR COMFORT WILL CONTINUE TO MONITOR.
--- NOTE | 2016-12-26 21:36 | NUR ---
PT POSITIONED FOR COMFORT. NOTIFIED FAMILY OF THE SITUATION. AWAITING RESULTS OF HEAD CT.
--- NOTE | 2016-12-26 23:00 | NUR ---
REASSESSMENT COMPLETED. NO ACUTE CHANGES AT THIS TIME. PT POSITIONED FOR COMFORT, WILL CONTINUE TO MONITOR.
[2016-12-27] VITALS (93 sets, daily range): BP systolic 64–118; BP diastolic 34–99
--- NOTE | 2016-12-27 01:00 | NUR ---
PT RESTING WITH NO SIGNS OF STRESS. PT POSITIONED FOR COMFORT WILL CONTINUE TO MONITOR.
--- NOTE | 2016-12-27 03:00 | NUR ---
REASSESSMENT COMPLETED. NO ACUTE CHANGES AT THIS TIME. PT POSITIONED FOR COMFORT WILL CONTINUE TO MONITOR.
[2016-12-27 04:10] LABS: BASOPHILS 0.9 % (0-2); EOSINOPHILS 15.8 % (0-7); HEMATOCRIT 32.4 % (42.0-54.0); HEMOGLOBIN 9.3 g/dL (13.5-17.5); IMMATURE GRANULOCYTES 7.3 % (0-5); LYMPHOCYTES 10.7 % (15-50); MCH 29.8 pg (26.0-34.0); MCHC 28.7 g/dL (31.0-37.0); MEAN PLATELET VOLUME 9.3 fL (7.4-10.4); MONOCYTES 14.8 % (2-11); NEUTROPHILS 50.5 % (40-80); PLATELET COUNT 203 10x3/uL (130-400); RBC 3.12 10x6/uL (4.20-6.10); WBC 11.9 10x3/uL (4.8-10.8)
[2016-12-27 04:13] LABS: MCV 103.8 fL (80.0-100.0)
[2016-12-27 04:34] LABS: ALBUMIN 3.2 g/dL (3.4-5.0); ANION GAP 11.5 mmol/L (8-16); BILIRUBIN - TOTAL 1.22 mg/dL (0.2-1.3); CARBON DIOXIDE 30.9 mmol/L (21.0-32.0); CREATININE - SERUM 5.7 mg/dL (0.6-1.3); PHOSPHOROUS 3.7 mg/dL (2.5-4.9); POTASSIUM - SERUM 4.4 mmol/L (3.5-5.1); PROTEIN - SERUM 6.6 g/dL (6.4-8.2)
[2016-12-27 04:35] LABS: CALCIUM 12.6 mg/dL (8.5-10.1)
--- NOTE | 2016-12-27 05:00 | NUR ---
PT REPOSITIONED FOR COMFORT. DENIES ANY NEEDS. WILL CONTINUE TO MONITOR.
--- NOTE | 2016-12-27 07:00 | NUR ---
ASSESSMENT COMPLETED, PT AROUSES TO PAIN STIMULI, RESPIRATIONS EVEN AND UNLABORED, PUPILS EQUAL AND REACTIVE, VSS, ON LEVOPHED 20MCG BP STABLE AT THIS TIME, ON BIPAP, CVL AND HEMOSPLIT DRESSING TO LEFT UPPER CHEST CDI, DRESSIBG TO RUE CDI, WOUND VAC TO GROIN, LEFFT THIGH IN PLACE, NO SIGNS OF PAIN, WILL CONTINUE TO MONITOR
--- NOTE | 2016-12-27 09:07 | NUR ---
PT BP ELEVATING ON 20MCG LEVOPHED, ABLE TO TITRATE TO 18
--- NOTE | 2016-12-27 11:00 | NUR ---
TOTAL BED BATH AND LINEN CHANGE, ORAL CARE PROVIDED, BP CONTINUES TO ELEVATE, TITRATED LEVOPHED DOWN TO 15MCG, WILL CONTINUE TO MONITOR
--- NOTE | 2016-12-27 13:14 | NUR ---
BP CONTINUES TO MAINTAIN, ABLE TO TITRATE LEVOPHED DOWN TO 13MCG, MORE ALERT MOVES ARMS WHEN TOUCHED BUT DOES NOT OPEN EYES OR FORM CLEAR WORDS, WILL CONTIUE TO MONITOR
--- NOTE | 2016-12-27 15:00 | NUR ---
REPOSITIONED VSS, NO SIGNS OF PAIN, ABLE TO TITRATE LEVOPHED DOWN TO 11MCG
--- NOTE | 2016-12-27 17:07 | NUR ---
NO SIGNS OF PAIN, CONTINUES ON BIPAP, LEVOPHED AT 9MCG, WILL CO NTINUE TO MONITOR
--- NOTE | 2016-12-27 19:15 | NUR ---
REPORT RECIEVED. ASSESSMENT COMPLETED SEE FLOW SHEET FOR DETAILS. PT POSITIONED FOR COMFORT, WILL CONTINUE TO MONITOR.
--- NOTE | 2016-12-27 21:00 | NUR ---
AT BED SIDE UPDATE GIVEN. PT POSITIONED FOR COMFORT, WILL CONTINUE TO MONITOR.
--- NOTE | 2016-12-27 23:00 | NUR ---
REASSESSMENT COMPLETED AT THIS TIME. NO ACUTE CHANGES. PT REPOSITIONED FOR COMFORT, WILL CONTINUE TO MONITOR.
[2016-12-28] VITALS (99 sets, daily range): BP systolic 75–134; BP diastolic 30–89
--- NOTE | 2016-12-28 01:00 | NUR ---
PT RESTING APPEARS TO HAVE NO NEEDS AT THIS TIME. POSITIONED PT FOR COMFORT WILL CONTINUE TO MONITOR.
--- NOTE | 2016-12-28 03:00 | NUR ---
REASSAAEMT COMPLETED. NO ACUTE CHANGES AT THIS TIME. SEE FLOW SHEET FOR DETAILS. PT POSITIONED FOR COMFORT WILL CONTINUE TO MONITOR.
[2016-12-28 04:26] LABS: BASOPHILS 0.5 % (0-2); EOSINOPHILS 13.6 % (0-7); IMMATURE GRANULOCYTES 3.7 % (0-5); LYMPHOCYTES 10.4 % (15-50); MCH 29.8 pg (26.0-34.0); MCHC 29.2 g/dL (31.0-37.0); MEAN PLATELET VOLUME 9.5 fL (7.4-10.4); MONOCYTES 13.2 % (2-11); NEUTROPHILS 58.6 % (40-80); RBC 2.52 10x6/uL (4.20-6.10); RDW 17.5 % (11.5-14.5)
[2016-12-28 04:30] LABS: HEMATOCRIT 25.7 % (42.0-54.0); HEMOGLOBIN 7.5 g/dL (13.5-17.5); PLATELET COUNT 138 10x3/uL (130-400); WBC 7.5 10x3/uL (4.8-10.8)
[2016-12-28 04:46] LABS: ALBUMIN 3.3 g/dL (3.4-5.0); ANION GAP 12.5 mmol/L (8-16); BILIRUBIN - TOTAL 1.4 mg/dL (0.2-1.3); CARBON DIOXIDE 28.6 mmol/L (21.0-32.0); CREATININE - SERUM 6.9 mg/dL (0.6-1.3); PHOSPHOROUS 3.9 mg/dL (2.5-4.9); POTASSIUM - SERUM 4.1 mmol/L (3.5-5.1); PROTEIN - SERUM 5.6 g/dL (6.4-8.2)
[2016-12-28 04:49] LABS: CALCIUM 13.2 mg/dL (8.5-10.1)
--- NOTE | 2016-12-28 05:00 | NUR ---
PT POSITIONED FOR COMFORT ,WILL CONTINUE TO MONITOR.
--- NOTE | 2016-12-28 07:49 | NUR ---
ASSESSMENT COMPLETED, LEVOPHED AT 5MCG, BP STABLE AT THIS POINT, CONTINUES ON BIPAP, PUPILS EQUAL AND REACTIVE, CONTINUES TO RESPOND TO PAIN BUT WORDS ARE MUMBLED/GARBLED, NO SIGNS OF PAIN, WOUND VAC IN PLACE, WILL CONTINUE TO MONITOR
--- NOTE | 2016-12-28 09:07 | NUR ---
PT TO RECIEVE BLOOD DURING DIALYSIS, DISCUSSED WITH BLOOD BANK AND DIALYSIS, BLOOD CONSENT ALREADY IN CHART
--- NOTE | 2016-12-28 09:53 | NUR ---
Nutrition follow-up: TPN, D25W,4.25%AA, continues @ 40 ml/hr; renal managing. Pt has renal diet mec soft ordered; however, pt is not eating at this time. labs reviewed Wt: 311# RDN following.
--- NOTE | 2016-12-28 09:53 | NUR ---
LEVOPHED TITRATED UP TO 11MCG FOR DIALYSIS TO MAINTAIN PRESSURE PER PARAMETERS
--- NOTE | 2016-12-28 11:00 | NUR ---
CONTINUES ON DIALYSIS, REPOSITIONED, WILL CONTINUE TO MONITOR
--- NOTE | 2016-12-28 11:41 | NUR ---
BLOOD ADMINISTERED PER DIALYSIS NURSE
--- NOTE | 2016-12-28 12:37 | NUR ---
DIALYSIS FINISHING UP. SECOND UNIT OF BLOOD STARTED THROUGH CVL WITHOUT ADVERSE REACTIONS NOTED. PT RATE ELEVATED TO 180'S THEN RETURNED TO HIS NORMAL RATE, CURRENTLY IN NSR, WILL CONTINUE TO MONITOR
--- NOTE | 2016-12-28 12:45 | NUR ---
PAGED DR PRABHAKAR
--- NOTE | 2016-12-28 12:46 | NUR ---
Mr. Caldwell had beside hemodialysis today via his left IJ Hemosplit from 09 until 1240. Average blood flow was 400 mls/minute. Transfused one unit of blood. The RN had to transfuse the second unit due to not enough time left on machine. I removed a net of 2500 mls as well as the 700 mls from the two units of prbc's. Pt had a few runs of high heart rate at the very end of treatment which looked like he was going into afib. Post vital signs were: B/P: 100/66, HR: 103, Temp: 98.4, Resps: 18.
--- NOTE | 2016-12-28 13:00 | NUR ---
PT HEART RATE ELEVATED BETWEEN 180-200 APPROX 4X BETWEEN DIALYSIS ENDING AND DE-ACCESSING AND ONCE AFTER DIALYSIS FINISHED. AWAITING RETURNED CALL FROM [facility] TO NOTIFY, CONTINUES ON LEVOPHED AT 9MCG TITRATING TO PRESSURE, 2ND UNIT OF PRBC INFUSING, NO SIGNS OF ADVERSE REACTIONS, NO FEVER
--- NOTE | 2016-12-28 13:15 | NUR ---
VANNA RETURNED CALL WITH NEW ORDERS DIGOXIN 0.25MCG IV X1 DOSE
--- NOTE | 2016-12-28 14:00 | NUR ---
DR MONTESINOS DISCUSSED SUPRAPUBIC WITH , STATES SHE WANTS TO WAIT
--- NOTE | 2016-12-28 15:10 | NUR ---
ABLE TO TITRATE DOWN LEVOPHED TO 4 MCG
[2016-12-28 16:12] LABS: ALP - ISO (ALP) 105 IU/L (39-117); ALP - ISO (BONE) FRACTION 48 % (12-68); ALP - ISO (LIVER) FRACTION 52 % (13-88); ALP - ISO(INTESTINAL) FRACTION 0 % (0-18)
--- NOTE | 2016-12-28 16:14 | NUR ---
WOUND TYPE:surgical WOUND LOCATION: #1 left upper thigh #2 Penis WOUND AGE IN MONTHS: weeks DEBRIDEMENT ATTEMPTED IN LAST 10 DAYS? DATE/TYPE: SERIAL DEBRIDEMENTS REQUIRED? MEASUREMENT DATE: 12/28/16 #1 7cm x 7.5cm x 0.7cm (no change) #2 4cm x 2cm x 3.5cm (improved depth) FULL THICKNESS? yes MUSCLE, TENDON OR BONE EXPOSED? no UNDERMINING? no TUNNELING/SINUS? no APPEARANCE OF WOUND BED : red beefy EXUDATE (AMOUNT, COLOR, ODOR): small sanguinous no odor FOAM TYPE: #1 black # OF PIECES USED: 1 piece FOAM TYPE: #2 black # OF PIECES USED: 1 piece -125mmhg mod continuous
--- NOTE | 2016-12-28 17:04 | NUR ---
PT REPOSITIONED, BP WITHIN PARAMETERS, TITRATING LEVOPHED, AT 4MCG, NO SIGNS OF PAIN, HR STEADY, WILL CONTIUE TO MONITOR
--- NOTE | 2016-12-28 17:58 | NUR ---
INCREASED LEVOPHED TO 8 MCG
--- NOTE | 2016-12-28 19:15 | NUR ---
REPORT RECIEVED. ASSESSMENT COMPLETED. SEE FLOW SHEET FOR DETAILS. PT POSITIONED FOR COMFORT WILL CONTINUE TO MONITOR.
--- NOTE | 2016-12-28 21:00 | NUR ---
AT BEDSIDE. UPDATE GIVEN. PT POSITIONED FOR COMOFRT WILL CONTINUE TO MONITOR.
--- NOTE | 2016-12-28 23:00 | NUR ---
REASSESSMENT COMPLETED. NO ACUTE CHNAGES. PT POSITIONED FOR COMFORT WILL CONTINUE TO MONITOR.
[2016-12-29] VITALS: BP 105/59
[2016-12-29 00:15] VITALS: BP 100/51
[2016-12-29 00:30] VITALS: BP 100/56
--- NOTE | 2016-12-29 00:40 | NUR ---
PT O2 SAT ALARMING RESPIRATORY NOTIFIED.
[2016-12-29 00:45] VITALS: BP 108/58
--- NOTE | 2016-12-29 00:45 | NUR ---
O2 SAT DROPPING RESPIRATORY AT BED SIDE FIO2 INCREASED TO 100%. AT BEDSIDE. UPDATE GIVEN.
--- NOTE | 2016-12-29 00:50 | NUR ---
O2 SAT CONTINUE TO DROP, HR DECREASING. AT BEDSIDE.
[2016-12-29 01:00] VITALS: BP 39/34
--- NOTE | 2016-12-29 01:00 | NUR ---
PT ASYSTOLE ON THE MONITOR.
--- NOTE | 2016-12-29 03:00 | NUR ---
AT BEDSIDE TP PRONOUNCE.
--- NOTE | 2016-12-29 03:10 | NUR ---
ZARA NOTIFIED OF PT .
--- NOTE | 2016-12-29 03:21 | NUR ---
HOME NOTIFIED OF PT .
--- NOTE | 2016-12-29 05:16 | NUR ---
HOME HERE FOR PT.
--- NOTE | 2016-12-31 08:42 | DS ---
PATIENT:CELSA HARRIS :66 MEDICAL RECORD: [id number] DISCHARGE SUMMARY ADMISSION DATE: 12/16/16 DISCHARGE DATE: 12/29/16 Summary This is a 46-year-old gentleman with end-stage renal disease, who had severe failure to thrive. His made a difficult decision to make him a NO CODE. He had been on BiPAP and without intubation, he eventually wore out and succumbed to his illness. He has had a penectomy, has end-stage renal disease, anemia of chronic disease, and we were celine to have his blood pressure with a systolic over 80, a mean arterial pressure over 50 without augmentation with Levophed. We were aggressive with his calcium treatment, but still had an elevated calcium. I suspect that his was going to discontinue dialysis for the next treatment and he quietly on 12/29/2016 early in the morning. TRANSINT:[id number] Voice Confirmation ID: [id number] DOCUMENT ID: [id number] MARK PRABAHKAR MD at 0842 CC: [id number] DICTATION DATE: 12/29/16 1421 [employer] STAFF: 12/30/16 0039 DIS IN 12/29/16 [id number] [place] [address]
== END 2016-12-29 03:00 | DRG 264 ==
LOC: D.M2 23:01 → D.ICU 12-16 01:35 → D.M2 12-16 01:35 → D.ICU 12-16 13:26
PROVIDERS: Internal Medicine; Internal Medicine Nephrology; Internal Medicine Pulmonary Disease; Surgery; ADMIT Internal Medicine Nephrology
DX: E11.52 Type 2 diabetes mellitus with diabetic peripheral angiopathy with gangrene (principal); N18.6 End stage renal disease; J95.821 Acute postprocedural respiratory failure; I13.2 Hypertensive heart and chronic kidney disease with heart failure and with stage 5 chronic kidney disease, or end stage renal disease; I50.30 Unspecified diastolic (congestive) heart failure; J98.11 Atelectasis; E66.2 Morbid (severe) obesity with alveolar hypoventilation; D62 Acute posthemorrhagic anemia; N49.3 Fournier gangrene; E11.22 Type 2 diabetes mellitus with diabetic chronic kidney disease; Z99.2 Dependence on renal dialysis; I48.91 Unspecified atrial fibrillation; I95.89 Other hypotension; Z68.37 Body mass index [BMI] 37.0-37.9, adult; I25.10 Atherosclerotic heart disease of native coronary artery without angina pectoris; Z66 Do not resuscitate; F32.9 Major depressive disorder, single episode, unspecified; N48.89 Other specified disorders of penis; E83.52 Hypercalcemia; D63.8 Anemia in other chronic diseases classified elsewhere; R62.7 Adult failure to thrive; J98.01 Acute bronchospasm; Z86.73 Personal history of transient ischemic attack (TIA), and cerebral infarction without residual deficits; Z86.718 Personal history of other venous thrombosis and embolism